=== PATIENT | male | born 1960 | race Caucasian/White ===

== ENCOUNTER 2022-08-16 14:20 | Emergency (ER) | payer MEDICAID ==
[~2022-08-16] VITALS: Ht 182.9 cm; Wt 80.0 kg
[~2022-08-16 14:20] MED LIST: NORCO10T PO
[2022-08-16 14:21] VITALS: BP 153/93
[2022-08-16] MEDS ORDERED: sulfamethoxazole/trimethoprim DS (800/160mg) tablet PO ONE (14:50)
[2022-08-16] MEDS ORDERED: bacitracin 15gm ointment TP ONE (14:50)
--- NOTE | 2022-08-16 14:59 | NUR ---
I AGREE WITH THE GENERAL ASSESSMENT PER Miriam ROBLES LVN.
[2022-08-16] MEDS ORDERED: HYDROcodone/acetaminophen 10/325mg tab PO ONE (15:05)
[2022-08-16] MEDS ORDERED: IBUP-862 PO (15:14)
[2022-08-16] MEDS ORDERED: HYDR-3973 PO (15:14)
--- NOTE | 2022-08-16 15:15 | NUR ---
xray at bs
[2022-08-16] MEDS ORDERED: SULF1TAB49 PO (15:16)
== END 2022-08-16 16:12 | disposition home or self-care (01) ==
LOC: ER 14:20
DX: M25.571 Pain in right ankle and joints of right foot (principal); Z56.0 Unemployment, unspecified; Z79.899 Other long term (current) drug therapy; W14.XXXA Fall from tree, initial encounter; Y93.89 Activity, other specified; Y92.89 Other specified places as the place of occurrence of the external cause; Y99.8 Other external cause status
CPT/HCPCS: 29515; 73610; 73650; 99284; A6258; A6446; A6449

== ENCOUNTER 2023-03-20 18:44 | Inpatient (IN) | payer MEDICAID ==
[~2023-03-20] VITALS: Ht 182.9 cm; Wt 84.8 kg
[~2023-03-20 18:44] MED LIST changes: +IBUP-862 PO
--- NOTE | 2023-03-20 18:58 | NUR ---
EKG performed on patient in room 19. EKG given to MD Mckeon. Per MD pt needs to be roomed right away. Informed charge Jessica. Per ore charger no room is available. notified.
[2023-03-20 20:13] LABS: HEMATOCRIT 45.8 % (42.0-52.0); HEMOGLOBIN 15.1 g/dl (14.0-17.9); MEAN CORPUSCULAR HEMOGLOBIN 30.4 PG (27.0-31.0); MEAN CORPUSCULAR VOLUME 92.4 FL (78-98); RED BLOOD COUNT 4.96 X10'6 (4.70-6.10); WHITE BLOOD COUNT 8.8 X10'3 (4.5-11.0)
[2023-03-20 20:14] LABS: BASOPHILS # (AUTO) 0.1 X10'3 (0-0.2); EOSINOPHILS % (AUTO) 0.3 % (0-6); LYMPHOCYTES # (AUTO) 1.1 X10'3 (1.1-4.8); MEAN PLATELET VOLUME 8.5 FL (7.4-10.4); MONOCYTES # (AUTO) 0.6 X10'3 (0-0.9); MONOCYTES % (AUTO) 6.8 % (2-12); NEUTROPHILS % (AUTO) 79.9 % (42-75); PLATELET COUNT 301 X10'3 (140-440); RED CELL DISTRIBUTION WIDTH 15.7 % (11.5-14.5)
[2023-03-20 20:28] LABS: ALANINE AMINOTRANSFERASE 354 U/L (12-78); ALBUMIN 3.2 G/DL (3.4-5.0); ALBUMIN/GLOBULIN RATIO 1.1 (1.1-1.5); ALKALINE PHOSPHATASE 187 IU/L (46-116); ANION GAP 10 (8-16); ASPARTATE AMINO TRANSFERASE 296 U/L (10-37); BLOOD UREA NITROGEN 31 MG/DL (7-18); BUN/CREATININE RATIO 15.3 (10.0-20.0); CALCIUM 8.9 MG/DL (8.5-10.1); CHLORIDE 105 MMOL/L (99-107); CREATININE 2.03 MG/DL (0.60-1.10); GLUCOSE 126 MG/DL (70-104); POTASSIUM 4.4 MMOL/L (3.5-5.1); SODIUM 139 MMOL/L (135-145); TOTAL CARBON DIOXIDE 23.8 MMOL/L (24-32); TOTAL PROTEIN 6.1 G/DL (6.4-8.2); eCRCL 41 ML/MIN; eGFR 33 ML/MIN
[2023-03-20 20:34] LABS: PRO BRAIN NATRIURETIC PEPTIDE 13474 PG/ML (0-125)
[2023-03-20] MEDS ORDERED: furosemide 10 MG/1 ML 10ml inj IV ONE (20:50)
[2023-03-20] MEDS ORDERED: albuterol 2.5 MG/3 ML nebule NEB ONE (20:55)
[2023-03-20 21:46] VITALS: PULSE 115; RESP 22; O2SAT 95
[2023-03-20 21:51] VITALS: PULSE 114; RESP 22; O2SAT 100
[2023-03-20] MEDS ORDERED: NO HOME MEDS (23:27)
[2023-03-21] VITALS (7 sets, daily range): BP systolic 104–131; BP diastolic 71–89; PULSE 90–114; RESP 15–22; TEMP 97.4–98.4; O2SAT 92–98
[2023-03-21] MEDS ORDERED: ondansetron 4mg rapidly disintigrating tab PO PRN (00:15)
[2023-03-21] MEDS ORDERED: acetaminophen 325mg tablet PO PRN ×2 (00:15)
[2023-03-21] MEDS ORDERED: HYDROcodone/acetaminophen 5mg/325mg tablet PO PRN ×2 (00:15→12:40)
[2023-03-21] MEDS ORDERED: mag hydrox/Alum hydrox/simeth 30ml oral suspension PO PRN (00:15)
[2023-03-21] MEDS ORDERED: diphenhydrAMINE 25mg capsule PO PRN (00:15)
[2023-03-21] MEDS ORDERED: morphine 2 MG/ML inj. syringe IV PRN ×4 (00:15→12:40)
[2023-03-21] MEDS ORDERED: ondansetron/PF 4mg/2ml inj IV PRN (00:15)
[2023-03-21] MEDS ORDERED: magnesium hydroxide 30ml (MOM) UD suspension PO PRN (00:15)
[2023-03-21] MEDS ORDERED: bisacodyl 10mg suppository rectal RC PRN (00:15)
[2023-03-21] MEDS ORDERED: normal saline 1000ml 1,000 ML IV SCH (00:15)
[2023-03-21] MEDS ORDERED: diphenhydrAMINE 50 mg/ml inj IV PRN (00:15)
[2023-03-21] MEDS ORDERED: acetaminophen 650mg rectal suppository RC PRN (00:15)
[2023-03-21] MEDS ORDERED: HYDROcodone/acetaminophen 10/325mg tab PO PRN ×2 (00:15→12:40)
[2023-03-21] MEDS ORDERED: ipratropium/albuterol 3ml nebule NEB PRN (00:15)
[2023-03-21] MEDS ORDERED: labetalol 20mg/4ml (5mg/ml) syringe IV PRN (00:40)
[2023-03-21 00:48] LABS: APTT 26 SECONDS (22-32); D-DIMER 1.06 MG/L FEU (0-0.50); INR 1.2 INR; PROTHROMBIN TIME 13.1 SECONDS (9.0-12.0)
[2023-03-21 00:59] LABS: CREATINE KINASE 475 U/L (39-308); ETHANOL < 10 MG/DL (<10); LIPASE 24 U/L (16-77); PHOSPHORUS 4.4 MG/DL (2.3-4.5); PRO BRAIN NATRIURETIC PEPTIDE 14717 PG/ML (0-125); THYROID STIMULATING HORMONE 2.58 ulU/ml (0.34-4.50)
[2023-03-21 01:14] LABS: HEMOGLOBIN A1C 5.8 % (4.5-6.2)
[2023-03-21 01:22] LABS: OSMOLALITY 303 MOSM/K (280-300)
[2023-03-21 01:41] LABS: URINE AMPHETAMINE SCREEN POSITIVE (Neg); URINE BARBITUATE SCREEN NEGATIVE (Neg); URINE BENZODIAZEPINES SCREEN NEGATIVE (Neg); URINE CANNABINOID SCREEN NEGATIVE (Neg); URINE COCAINE SCREEN NEGATIVE (Neg); URINE METHADONE SCREEN NEGATIVE (Neg); URINE OPIATE SCREEN NEGATIVE (Neg); URINE PHENCYCLIDINE SCREEN NEGATIVE (Neg)
--- NOTE | 2023-03-21 01:45 | NUR ---
LA 3.0, LEDY STEELE AWARE & VERBAL ORDER START ABX TX NOW RATHER THAN AT 8AM. ORDERS UPDATED. NO OTHER ORDERS AT THIS TIME.
--- NOTE | 2023-03-21 01:46 | NUR ---
LEDY STEELE AWARE THAT PT HAS NOT RECIEVED ANY ADDITIONAL FLUIDS OTHER THAN 20ML/HR NS. NO ADDITIONAL ORDERS AT THIS TIME.
[2023-03-21] MEDS: CefTRIAXone/D5W-Rocephin 1gm 50 ML IV SCH (01:52)
[2023-03-21] MEDS: azithromycin/NS 500mg/250ml 250 ML IV SCH (01:55)
[2023-03-21 02:19] LABS: BILIRUBIN,URINE NEGATIVE (Neg); CLARITY,URINE CLEAR (Clear); COLOR,URINE STRAW (Yellow); GLUCOSE, URINE NEGATIVE (Neg); KETONES,URINE NEGATIVE (Neg); LEUKOCYTE ESTERASE ,URINE NEGATIVE (Neg); NITRITES, URINE NEGATIVE (Neg); OCCULT BLOOD,URINE NEGATIVE (Neg); PH,URINE 5.5 (4.8-8.0); PROTEIN,URINE NEGATIVE (Neg); UROBILINOGEN,URINE 0.2 E.U/dL (0.2-1.0)
[2023-03-21 02:24] LABS: UA COLLECTION TYPE CLN CATCH MIDSTREAM
[2023-03-21] MEDS: temazepam 15mg capsule PO PRN ×2 (03:31→22:45)
--- NOTE | 2023-03-21 03:36 | NUR ---
LEDY STEELE UPDATED ON 2HR LA @4.1. NO ADDITIONAL ORDERS, SAYS TO FOLLOW CURRENT ORDERS.
[2023-03-21 03:41] LABS: ABG BASE EXCESS -3.7 mmol/L (-2.0-2.0); ABG OXYGEN SATURATION 87.5 % (94-97); ABG PCO2 (T) 32.1 mmHg (35.0-48.0); ABG PO2 (T) 52.2 mmHg (75.0-100.0); ALLEN'S TEST POSITIVE; FCOHb 0.7 % (0.0-3.9); FHHb 12.4 % (0.0-5.0); FMetHb 0.3 % (0.0-1.5); FO2Hb 86.6 % (94-97); PATIENT TEMPERATURE 36.6; TOTAL HEMOGLOBIN 15.7 G/dl (14.0-17.9)
--- NOTE | 2023-03-21 04:27 | NUR ---
LEDY STEELE AWARE OF ABG RESULTS, ORDERED TO INCREASE O2 FROM 4L NC TO 5L NC, KEEP SAT'S ABOVE 94%
[2023-03-21] MEDS: aspirin 81mg, enteric-coated 1 TAB TABLET.DR PO SCH (07:41)
[2023-03-21] MEDS: pantoprazole 40mg Tablet.DR PO SCH (07:41)
[2023-03-21] MEDS: heparin, porcine 5000 units/ml vial SQ SCH ×2 (07:43→19:49)
[2023-03-21] MEDS ORDERED: methylPREDNISolone sod succ/PF 40mg inj. IV SCH (08:00)
[2023-03-21] MEDS ORDERED: docusate sod 100mg capsule PO SCH (08:00)
[2023-03-21] MEDS ORDERED: CefTRIAXone/D5W-Rocephin 1gm 50 ML IV SCH (08:00)
[2023-03-21] MEDS ORDERED: azithromycin/NS 500mg/250ml 250 ML IV SCH (08:00)
--- NOTE | 2023-03-21 08:23 | NUR ---
Called Dr Xiang Dunn, radiologist, regaring clarification on CXR done last night regarding possible tracheal deviation. No obvious trachael deviation upon exam. No respiratory distress noted. Left detailed VM. Waiting callback. Pt O2 sat 96% on 3L NC. Pt sleeping comfortably at this time. Will continue to monitor.
--- NOTE | 2023-03-21 10:39 | NUR ---
Echo paged regarding new echo ordered at midnight today.
--- NOTE | 2023-03-21 10:55 | NUR ---
Spoke w/ Dr Dunn, radiologist regarding CXR read. states trachea is slightly deviated d/t enlarged aorta. Dr Dunn states that would to be expected for enlarged aorta.
[2023-03-21] MEDS: furosemide 20 MG/2 ML vial IV SCH ×2 (13:45→19:49)
--- NOTE | 2023-03-21 14:02 | NUR ---
Received report from ROSY Vital RN
--- NOTE | 2023-03-21 14:13 | NUR ---
Spouse, Tien, called to update her regarding room assignment. Left detailed VM.
[2023-03-21 14:47] LABS: ALANINE AMINOTRANSFERASE 342 U/L (12-78); ALBUMIN 2.8 G/DL (3.4-5.0); ALKALINE PHOSPHATASE 194 IU/L (46-116); ANION GAP 12 (8-16); ASPARTATE AMINO TRANSFERASE 209 U/L (10-37); BILIRUBIN,TOTAL 1.1 MG/DL (0.1-1.0); BLOOD UREA NITROGEN 36 MG/DL (7-18); BUN/CREATININE RATIO 17.6 (10.0-20.0); CALCIUM 8.4 MG/DL (8.5-10.1); CHLORIDE 105 MMOL/L (99-107); CREATININE 2.04 MG/DL (0.60-1.10); GLUCOSE 174 MG/DL (70-104); POTASSIUM 3.9 MMOL/L (3.5-5.1); SODIUM 138 MMOL/L (135-145); TOTAL CARBON DIOXIDE 20.9 MMOL/L (24-32); TOTAL PROTEIN 5.7 G/DL (6.4-8.2); eCRCL 41 ML/MIN; eGFR 33 ML/MIN
--- NOTE | 2023-03-21 18:19 | NUR ---
Report given to OLIVIA Rao RN.
[2023-03-21] MEDS: carVEDilol 3.125mg tablet PO SCH (19:49)
[2023-03-21] MEDS: methylPREDNISolone sod succ/PF 40mg inj. IV SCH (19:49)
[2023-03-21] MEDS ORDERED: temazepam 15mg capsule PO PRN (21:00)
[2023-03-22] VITALS (11 sets, daily range): BP systolic 86–138; BP diastolic 57–92; PULSE 88–101; RESP 15–25; TEMP 97–98.3; O2SAT 90–98
[2023-03-22] MEDS: CefTRIAXone/D5W-Rocephin 1gm 50 ML IV SCH ×2 (01:33→08:57)
[2023-03-22] MEDS: azithromycin/NS 500mg/250ml 250 ML IV SCH ×2 (01:33→09:32)
[2023-03-22 07:15] LABS: BASOPHILS % (AUTO) 0.1 % (0-1); EOSINOPHILS % (AUTO) 0 % (0-6); HEMATOCRIT 45.3 % (42.0-52.0); HEMOGLOBIN 15.1 g/dl (14.0-17.9); LYMPHOCYTES # (AUTO) 0.4 X10'3 (1.1-4.8); MEAN CORPUSCULAR HEMOGLOBIN 30.3 PG (27.0-31.0); MEAN CORPUSCULAR HGB CONC 33.3 g/dL (33.0-36.5); MEAN CORPUSCULAR VOLUME 91.1 FL (78-98); MEAN PLATELET VOLUME 8.4 FL (7.4-10.4); MONOCYTES # (AUTO) 0.2 X10'3 (0-0.9); MONOCYTES % (AUTO) 1.8 % (2-12); NEUTROPHILS % (AUTO) 94.1 % (42-75); PLATELET COUNT 281 X10'3 (140-440); RED BLOOD COUNT 4.97 X10'6 (4.70-6.10); RED CELL DISTRIBUTION WIDTH 15.7 % (11.5-14.5); WHITE BLOOD COUNT 10.6 X10'3 (4.5-11.0)
[2023-03-22 07:22] LABS: ALANINE AMINOTRANSFERASE 250 U/L (12-78); ALBUMIN 2.4 G/DL (3.4-5.0); ALKALINE PHOSPHATASE 150 IU/L (46-116); ANION GAP 11 (8-16); ASPARTATE AMINO TRANSFERASE 111 U/L (10-37); BILIRUBIN,TOTAL 0.8 MG/DL (0.1-1.0); BLOOD UREA NITROGEN 34 MG/DL (7-18); CALCIUM 7.9 MG/DL (8.5-10.1); CHLORIDE 104 MMOL/L (99-107); CHOL/HDL RATIO 3.6 (0.00-4.99); CHOLESTEROL 143 MG/DL (0-200); GLUCOSE 159 MG/DL (70-104); HDL CHOLESTEROL 40 MG/DL (35-60); LDL CHOLESTEROL 88 MG/DL (50-100); POTASSIUM 3.6 MMOL/L (3.5-5.1); SODIUM 137 MMOL/L (135-145); TOTAL CARBON DIOXIDE 22.4 MMOL/L (24-32); TOTAL PROTEIN 4.9 G/DL (6.4-8.2); TRIGLYCERIDES 56 MG/DL (20-135); eCRCL 42 ML/MIN; eGFR 34 ML/MIN
[2023-03-22] MEDS ORDERED: lisinopril 5mg tablet PO SCH (08:00)
[2023-03-22] MEDS: pantoprazole 40mg Tablet.DR PO SCH (08:34)
[2023-03-22] MEDS: aspirin 81mg, enteric-coated 1 TAB TABLET.DR PO SCH (08:35)
[2023-03-22] MEDS: carVEDilol 3.125mg tablet PO SCH ×2 (08:35→20:19)
[2023-03-22] MEDS: methylPREDNISolone sod succ/PF 40mg inj. IV SCH (08:37)
[2023-03-22] MEDS: furosemide 20 MG/2 ML vial IV SCH ×2 (08:38→20:19)
[2023-03-22] MEDS: heparin, porcine 5000 units/ml vial SQ SCH ×2 (08:42→20:20)
[2023-03-22] MEDS: EMPAGLIFLOZIN 10 MG TABLET PO SCH (11:27)
[2023-03-22] MEDS: spironolactone 25 MG tablet PO SCH (12:20)
--- NOTE | 2023-03-22 14:59 | NUR ---
Message: [id number] Chu Beck has family at the bedside that would like to talk to you. Rebecca [id number] Transaction number: [id number]
[2023-03-22] MEDS ORDERED: LORazepam 1 MG tablet PO PRN (15:15)
[2023-03-22] MEDS ORDERED: LORazepam 2 mg/ml vial IV PRN ×2 (15:15)
[2023-03-22] MEDS ORDERED: haloperidol 5mg tablet PO PRN ×2 (15:15)
[2023-03-22] MEDS ORDERED: haloperidol lactate 5mg/ml inj IM PRN ×2 (15:15)
--- NOTE | 2023-03-22 15:36 | NUR ---
Patient very anxious with restless legs and feet. Patient drinks up to 12 Coors a day, not coors light. Patient feels like he wants to come out of the bed. Dr. Dunn called and notified. ETOH withdrawal protocol ordered. Patient drank on his day of arrival to ER. Today will be day 2, 2mg Ativan IV given. Patient is relaxed and sleeping currently. O2 increased to 3L do to patient O2 level dropped to 90%, patient snoring, HOB 30 degrees. Plan of care will be continued.
--- NOTE | 2023-03-22 18:18 | NUR ---
Report given to Denisse Ureña
--- NOTE | 2023-03-22 18:20 | NUR ---
Patient in room PCU 3023. I have received report from KARUNA Fernandez and had the opportunity to ask questions and assume patient care.
[2023-03-22] MEDS: thiamine 100mg/ml 2ml inj. IV SCH (20:19)
[2023-03-23] VITALS (9 sets, daily range): BP systolic 121–146; BP diastolic 85–102; PULSE 94–102; RESP 16–21; TEMP 97.2–98.6; O2SAT 94–99
--- NOTE | 2023-03-23 06:42 | NUR ---
Problems reprioritized. Patient report given, questions answered & plan of care reviewed with KARUNA Moran.
--- NOTE | 2023-03-23 06:44 | NUR ---
Patient in room PCU 3023. I have received report from Denisse BECKMAN and had the opportunity to ask questions and assume patient care.
[2023-03-23] MEDS: pantoprazole 40mg Tablet.DR PO SCH (08:09)
[2023-03-23] MEDS: EMPAGLIFLOZIN 10 MG TABLET PO SCH (08:10)
[2023-03-23] MEDS: aspirin 81mg, enteric-coated 1 TAB TABLET.DR PO SCH (08:10)
[2023-03-23] MEDS: multivitamins, therapeutics tablet PO SCH (08:10)
[2023-03-23] MEDS: furosemide 20 MG/2 ML vial IV SCH ×2 (08:11→21:42)
[2023-03-23] MEDS: heparin, porcine 5000 units/ml vial SQ SCH ×2 (08:11→21:22)
[2023-03-23] MEDS: thiamine 100mg/ml 2ml inj. IV SCH ×3 (08:11→21:42)
[2023-03-23] MEDS: folic acid 1mg/0.2ml inj IV SCH (08:21)
[2023-03-23] MEDS: carVEDilol 3.125mg tablet PO SCH ×2 (08:21→21:22)
[2023-03-23] MEDS: spironolactone 25 MG tablet PO SCH (08:22)
[2023-03-23 08:49] LABS: BASOPHILS % (AUTO) 0.1 % (0-1); EOSINOPHILS % (AUTO) 0 % (0-6); HEMATOCRIT 44.4 % (42.0-52.0); HEMOGLOBIN 14.3 g/dl (14.0-17.9); LYMPHOCYTES # (AUTO) 0.7 X10'3 (1.1-4.8); LYMPHOCYTES % (AUTO) 4.4 % (21-51); MEAN CORPUSCULAR HEMOGLOBIN 29.7 PG (27.0-31.0); MEAN CORPUSCULAR HGB CONC 32.3 g/dL (33.0-36.5); MEAN CORPUSCULAR VOLUME 92.2 FL (78-98); MEAN PLATELET VOLUME 8.7 FL (7.4-10.4); MONOCYTES # (AUTO) 0.7 X10'3 (0-0.9); NEUTROPHILS # (AUTO) 15.4 X10'3 (1.8-7.7); NEUTROPHILS % (AUTO) 91.5 % (42-75); PLATELET COUNT 308 X10'3 (140-440); RED BLOOD COUNT 4.82 X10'6 (4.70-6.10); RED CELL DISTRIBUTION WIDTH 16.5 % (11.5-14.5); WHITE BLOOD COUNT 16.8 X10'3 (4.5-11.0)
[2023-03-23 09:30] LABS: ALANINE AMINOTRANSFERASE 239 U/L (12-78); ALBUMIN 2.8 G/DL (3.4-5.0); ALBUMIN/GLOBULIN RATIO 1.1 (1.1-1.5); ALKALINE PHOSPHATASE 143 IU/L (46-116); ANION GAP 12 (8-16); ASPARTATE AMINO TRANSFERASE 88 U/L (10-37); BILIRUBIN,TOTAL 0.6 MG/DL (0.1-1.0); BLOOD UREA NITROGEN 41 MG/DL (7-18); BUN/CREATININE RATIO 17.7 (10.0-20.0); CALCIUM 8.3 MG/DL (8.5-10.1); CHLORIDE 104 MMOL/L (99-107); CREATININE 2.32 MG/DL (0.60-1.10); GLUCOSE 115 MG/DL (70-104); POTASSIUM 4.2 MMOL/L (3.5-5.1); SODIUM 138 MMOL/L (135-145); TOTAL CARBON DIOXIDE 22.1 MMOL/L (24-32); TOTAL PROTEIN 5.4 G/DL (6.4-8.2); eCRCL 36 ML/MIN; eGFR 29 ML/MIN
--- NOTE | 2023-03-23 17:19 | NUR ---
O2 Sat at rest on room air:__88_% If below 89%: Recovery O2 Sat at rest on 2__LPM:___%:_92__% via____nc (mask/nasal cannula, etc..) No further documentation is necessary. If O2 Sat did not drop below 89% on room air,ambulate patient on room air. O2 Sat while ambulating on room air:___% Recovery O2 Sat while ambulating on ___LPM:___% No further documentation is necessary. If patient does not drop below 89% while ambulating, he/she does not qualify for home O2.
--- NOTE | 2023-03-23 17:32 | NUR ---
patient seen by Dr wyatt, , qualified for O2. . No evidence of withdrawals. sleeping alot of day. family present
--- NOTE | 2023-03-23 18:17 | NUR ---
Problems reprioritized. Patient report given, questions answered & plan of care reviewed with Christina ISBELL.
[2023-03-23 19:07] LABS: HBSAG SCREEN Negative (Negative); HEP A AB, IGM Negative (Negative); HEP B CORE AB, IGM Negative (Negative); HEP B CORE AB, TOT Negative (Negative); HEPATITIS C VIRUS ANTIBODY Non Reactive (Non Reactive)
[2023-03-23] MEDS: temazepam 15mg capsule PO PRN (21:21)
[2023-03-23] MEDS: sacubitril/valsartan 24mg-26mg tablet PO SCH (21:22)
[2023-03-24 02:00] VITALS: BP 138/99; PULSE 98; RESP 28; TEMP 97; O2SAT 98
--- NOTE | 2023-03-24 04:01 | NUR ---
I AGREE WITH AUDIO DIRECTOR'S ASSESSMENT
[2023-03-24 06:00] VITALS: BP 138/94; PULSE 98; RESP 19; TEMP 98.2; O2SAT 91
--- NOTE | 2023-03-24 06:57 | NUR ---
Patient in room PCU 3023. I have received report from Christina ISBELL and had the opportunity to ask questions and assume patient care.
[2023-03-24] MEDS: sacubitril/valsartan 24mg-26mg tablet PO SCH (07:30)
[2023-03-24] MEDS: multivitamins, therapeutics tablet PO SCH (07:30)
[2023-03-24] MEDS: furosemide 20 MG/2 ML vial IV SCH (07:30)
[2023-03-24] MEDS: pantoprazole 40mg Tablet.DR PO SCH (07:30)
[2023-03-24] MEDS: spironolactone 25 MG tablet PO SCH (07:31)
[2023-03-24] MEDS: thiamine 100mg/ml 2ml inj. IV SCH ×2 (07:31→13:53)
[2023-03-24] MEDS: carVEDilol 3.125mg tablet PO SCH (07:31)
[2023-03-24] MEDS: EMPAGLIFLOZIN 10 MG TABLET PO SCH (07:31)
[2023-03-24] MEDS: aspirin 81mg, enteric-coated 1 TAB TABLET.DR PO SCH (07:31)
[2023-03-24] MEDS: heparin, porcine 5000 units/ml vial SQ SCH (07:32)
[2023-03-24] MEDS: folic acid 1mg/0.2ml inj IV SCH (07:44)
[2023-03-24 08:01] LABS: BASOPHILS % (AUTO) 0.4 % (0-1); EOSINOPHILS % (AUTO) 0.5 % (0-6); HEMATOCRIT 44.4 % (42.0-52.0); HEMOGLOBIN 14.4 g/dl (14.0-17.9); LYMPHOCYTES # (AUTO) 0.9 X10'3 (1.1-4.8); LYMPHOCYTES % (AUTO) 10.6 % (21-51); MEAN CORPUSCULAR HEMOGLOBIN 29.9 PG (27.0-31.0); MEAN CORPUSCULAR HGB CONC 32.3 g/dL (33.0-36.5); MEAN CORPUSCULAR VOLUME 92.5 FL (78-98); MEAN PLATELET VOLUME 8.2 FL (7.4-10.4); MONOCYTES # (AUTO) 0.5 X10'3 (0-0.9); MONOCYTES % (AUTO) 5.7 % (2-12); NEUTROPHILS # (AUTO) 6.9 X10'3 (1.8-7.7); NEUTROPHILS % (AUTO) 82.8 % (42-75); PLATELET COUNT 262 X10'3 (140-440); RED CELL DISTRIBUTION WIDTH 16.1 % (11.5-14.5); WHITE BLOOD COUNT 8.4 X10'3 (4.5-11.0)
[2023-03-24 08:25] LABS: ALANINE AMINOTRANSFERASE 190 U/L (12-78); ALBUMIN 2.6 G/DL (3.4-5.0); ALKALINE PHOSPHATASE 133 IU/L (46-116); ANION GAP 3 (8-16); ASPARTATE AMINO TRANSFERASE 71 U/L (10-37); BILIRUBIN,TOTAL 0.9 MG/DL (0.1-1.0); BLOOD UREA NITROGEN 38 MG/DL (7-18); BUN/CREATININE RATIO 19.8 (10.0-20.0); CALCIUM 8.3 MG/DL (8.5-10.1); CHLORIDE 102 MMOL/L (99-107); CREATININE 1.92 MG/DL (0.60-1.10); GLUCOSE 92 MG/DL (70-104); SODIUM 136 MMOL/L (135-145); TOTAL CARBON DIOXIDE 30.7 MMOL/L (24-32); TOTAL PROTEIN 5.2 G/DL (6.4-8.2); eCRCL 44 ML/MIN; eGFR 36 ML/MIN
[2023-03-24 08:28] LABS: POTASSIUM 4.5 MMOL/L (3.5-5.1)
--- NOTE | 2023-03-24 11:44 | NUR ---
Initial: Pt admit for CHF with EF 10%, pulmonary edema, possible PNA, NSTEMI, transaminitis, and KIKI. Per EMR pt with EtOH hx, currently receiving routine Thiamine, Folic acid, and MVI. Pt on a heart healthy diet and eating well, documented with 100% PO intake of all meals. D/w dietary to send double protein with meals for satiety. LBM 03/23 per EMR. Will continue to follow and monitor need for further nutrition intervention. Recommendations: 1) Continue heart healthy diet 2) Double eggs WB, double meat BIDLD for satiety 3) Routine bowel care 4) Daily scaled weights per rx Addendum: 03/24/23 at [address] Amended: Links added.
[2023-03-24 12:24] VITALS: PULSE 83; RESP 20; O2SAT 94
[2023-03-24 12:52] VITALS: BP 119/83; PULSE 88; RESP 20; TEMP 97.3; O2SAT 99
[2023-03-24] MEDS ORDERED: SPIR25TA PO (14:14)
[2023-03-24] MEDS ORDERED: FOLI IV (14:14)
[2023-03-24] MEDS ORDERED: THIA100T70 PO (14:14)
[2023-03-24] MEDS ORDERED: COR3.125T PO (14:14)
[2023-03-24] MEDS ORDERED: MULT-25 PO (14:14)
[2023-03-24] MEDS ORDERED: ASPI-1071 PO (14:14)
[2023-03-24] MEDS ORDERED: EMPA10TA PO (14:14)
[2023-03-24] MEDS ORDERED: FURO-150 PO (14:14)
[2023-03-24] MEDS ORDERED: LORazepam 2 mg/ml vial IV PRN (15:15)
[2023-03-24] MEDS ORDERED: LORazepam 1 MG tablet PO PRN (15:15)
[2023-03-24] MEDS ORDERED: SACU1TAB PO ×2 (15:27)
[2023-03-24] MEDS ORDERED: LOSA50TA64 PO (17:45)
--- NOTE | 2023-03-24 18:22 | NUR ---
patient seen by Dr Dunn and DR Carrasco. Life vest fitted and O2 delivered. patient appears stable. DC home via private car with spouse .[id number]
[2023-03-26] MEDS ORDERED: LORazepam 1 MG tablet PO PRN (15:15)
[2023-03-26] MEDS ORDERED: LORazepam 2 mg/ml vial IV PRN (15:15)
== END 2023-03-24 17:54 | disposition home or self-care (01) | DRG 133 ==
LOC: ER 18:45 → ED HOLD 03-21 00:18 → PCU 3S 03-21 14:08
PROVIDERS: ADMIT Family Medicine; ATTEND Internal Medicine
DX: J96.01 Acute respiratory failure with hypoxia (principal); I21.A1 Myocardial infarction type 2; I50.43 Acute on chronic combined systolic (congestive) and diastolic (congestive) heart failure; N17.9 Acute kidney failure, unspecified; I13.0 Hypertensive heart and chronic kidney disease with heart failure and stage 1 through stage 4 chronic kidney disease, or unspecified chronic kidney disease; K76.1 Chronic passive congestion of liver; J44.9 Chronic obstructive pulmonary disease, unspecified; F15.129 Other stimulant abuse with intoxication, unspecified; N18.9 Chronic kidney disease, unspecified; F10.239 Alcohol dependence with withdrawal, unspecified; K70.10 Alcoholic hepatitis without ascites; R74.01 Elevation of levels of liver transaminase levels; Z87.891 Personal history of nicotine dependence
CPT/HCPCS: 36415; 36600; 71045; 71250; 74176; 80053; 80061; 80305; 80320; 81003; 82140; 82550; 82803; 82948; 82977; 83036; 83605; 83690; 83735; 83880; 83930; 84100; 84145; 84443; 84484; 85018; 85025; 85379; 85610; 85730; 86704; 86705; 86709; 86803; 87040; 87081; 87340; 87522; 93306; 94640; 94760; 97161; 97530; 99285; A4349; A4615; J0456; J0696; J1644; J1940; J2060; J2920; J3411; J3490; J7030; J7040

== ENCOUNTER 2023-04-14 12:16 | Inpatient (IN) | payer MEDICAID ==
[~2023-04-14] VITALS: Ht 182.9 cm; Wt 65.7 kg
[~2023-04-14 12:16] MED LIST changes: +ASPI-1071 PO; +COR3.125T PO; +EMPA10TA PO; +FOLI IV; +FURO-150 PO; -IBUP-862 PO; +LOSA50TA64 PO; +MULT-25 PO; -NORCO10T PO; +SPIR25TA PO; +THIA100T70 PO
[2023-04-14 12:55] LABS: BASOPHILS # (AUTO) 0.1 X10'3 (0-0.2); BASOPHILS % (AUTO) 1.1 % (0-1); EOSINOPHILS % (AUTO) 0.3 % (0-6); HEMATOCRIT 45.6 % (42.0-52.0); HEMOGLOBIN 14.7 g/dl (14.0-17.9); LYMPHOCYTES # (AUTO) 1.5 X10'3 (1.1-4.8); LYMPHOCYTES % (AUTO) 14.3 % (21-51); MEAN CORPUSCULAR HGB CONC 32.2 g/dL (33.0-36.5); MEAN CORPUSCULAR VOLUME 93.2 FL (78-98); MEAN PLATELET VOLUME 8.6 FL (7.4-10.4); MONOCYTES # (AUTO) 0.9 X10'3 (0-0.9); MONOCYTES % (AUTO) 8.9 % (2-12); NEUTROPHILS # (AUTO) 7.9 X10'3 (1.8-7.7); NEUTROPHILS % (AUTO) 75.4 % (42-75); PLATELET COUNT 260 X10'3 (140-440); RED CELL DISTRIBUTION WIDTH 16.4 % (11.5-14.5); WHITE BLOOD COUNT 10.5 X10'3 (4.5-11.0)
[2023-04-14 13:06] LABS: ALANINE AMINOTRANSFERASE 117 U/L (12-78); ALBUMIN 3.3 G/DL (3.4-5.0); ALKALINE PHOSPHATASE 136 IU/L (46-116); ANION GAP 10 (8-16); ASPARTATE AMINO TRANSFERASE 101 U/L (10-37); BILIRUBIN,TOTAL 3.2 MG/DL (0.1-1.0); BLOOD UREA NITROGEN 30 MG/DL (7-18); CALCIUM 8.9 MG/DL (8.5-10.1); CHLORIDE 100 MMOL/L (99-107); CREATININE 1.87 MG/DL (0.60-1.10); GLUCOSE 110 MG/DL (70-104); POTASSIUM 4.8 MMOL/L (3.5-5.1); SODIUM 130 MMOL/L (135-145); TOTAL CARBON DIOXIDE 19.7 MMOL/L (24-32); TOTAL PROTEIN 6.7 G/DL (6.4-8.2); eCRCL 38 ML/MIN; eGFR 37 ML/MIN
[2023-04-14 13:14] LABS: PRO BRAIN NATRIURETIC PEPTIDE 15264 PG/ML (0-125)
[2023-04-14] MEDS ORDERED: furosemide 10 MG/1 ML 10ml inj IV ONE (15:30)
[2023-04-14] MEDS ORDERED: acetaminophen 325mg tablet PO PRN ×2 (16:15)
[2023-04-14] MEDS ORDERED: potassium Cl 40MEQ/1/2NS 520ml 520 ML IV PRN (16:15)
[2023-04-14] MEDS ORDERED: potassium Cl 20 mEq SR tablet PO PRN ×2 (16:15)
[2023-04-14] MEDS ORDERED: ondansetron/PF 4mg/2ml inj IV PRN (16:15)
[2023-04-14] MEDS ORDERED: LORazepam 1 MG tablet PO PRN (16:15)
[2023-04-14] MEDS ORDERED: LORazepam 2 mg/ml vial IV PRN (16:15)
[2023-04-14] MEDS ORDERED: magnesium 2GM in 50ml NS 50 ML IV PRN (16:15)
[2023-04-14] MEDS ORDERED: magnesium Cl slow-release 64mg tablet PO PRN (16:15)
[2023-04-14] MEDS ORDERED: magnesium 4gm in 100ml NS 100 ML IV PRN (16:15)
[2023-04-14 19:14] VITALS: BP 132/100; PULSE 111; RESP 20; TEMP 97.9; O2SAT 100
[2023-04-14 20:00] VITALS: RESP 24; O2SAT 100
[2023-04-14] MEDS: carVEDilol 3.125mg tablet PO SCH (21:23)
[2023-04-14] MEDS: furosemide 40mg/4ml inj IV SCH (21:23)
[2023-04-14] MEDS: temazepam 15mg capsule PO PRN (21:23)
[2023-04-14] MEDS: enoxaparin 40mg/0.4ml syringe SQ SCH (21:24)
[2023-04-14 22:00] VITALS: BP 155/113; PULSE 114; RESP 20; TEMP 97.9; O2SAT 94
[2023-04-14] MEDS ORDERED: SPIR25TA5 PO (23:45)
[2023-04-14] MEDS ORDERED: ASPI-1397 PO (23:45)
[2023-04-14] MEDS ORDERED: EMPA10TA PO (23:45)
[2023-04-14] MEDS ORDERED: CARV3.1244 PO (23:45)
[2023-04-14] MEDS ORDERED: THIA100T66 PO (23:45)
[2023-04-14] MEDS ORDERED: LOSA-415 PO (23:45)
[2023-04-14] MEDS ORDERED: MULT400T7 PO (23:45)
[2023-04-14] MEDS ORDERED: FURO20TA4 PO (23:45)
[2023-04-15] VITALS (8 sets, daily range): BP systolic 95–123; BP diastolic 61–98; PULSE 87–111; RESP 15–23; TEMP 97.4–98.1; O2SAT 95–100
[2023-04-15 06:21] LABS: ALANINE AMINOTRANSFERASE 165 U/L (12-78); ALKALINE PHOSPHATASE 136 IU/L (46-116); ANION GAP 11 (8-16); ASPARTATE AMINO TRANSFERASE 128 U/L (10-37); BILIRUBIN,TOTAL 2.1 MG/DL (0.1-1.0); BLOOD UREA NITROGEN 37 MG/DL (7-18); BUN/CREATININE RATIO 19.7 (10.0-20.0); CALCIUM 8.5 MG/DL (8.5-10.1); CHLORIDE 99 MMOL/L (99-107); CREATININE 1.88 MG/DL (0.60-1.10); GLUCOSE 100 MG/DL (70-104); LIPASE 20 U/L (16-77); MAGNESIUM 1.8 MG/DL (1.5-2.4); PHOSPHORUS 4.2 MG/DL (2.3-4.5); POTASSIUM 3.8 MMOL/L (3.5-5.1); SODIUM 131 MMOL/L (135-145); TOTAL CARBON DIOXIDE 21.5 MMOL/L (24-32); eCRCL 38 ML/MIN; eGFR 37 ML/MIN
[2023-04-15 06:25] LABS: BASOPHILS # (AUTO) 0.1 X10'3 (0-0.2); BASOPHILS % (AUTO) 1.2 % (0-1); EOSINOPHILS % (AUTO) 0.4 % (0-6); HEMATOCRIT 44.3 % (42.0-52.0); HEMOGLOBIN 14.6 g/dl (14.0-17.9); LYMPHOCYTES # (AUTO) 1.4 X10'3 (1.1-4.8); LYMPHOCYTES % (AUTO) 14.7 % (21-51); MEAN CORPUSCULAR HGB CONC 32.8 g/dL (33.0-36.5); MEAN CORPUSCULAR VOLUME 91.5 FL (78-98); MEAN PLATELET VOLUME 8.8 FL (7.4-10.4); MONOCYTES # (AUTO) 0.9 X10'3 (0-0.9); MONOCYTES % (AUTO) 9.3 % (2-12); NEUTROPHILS # (AUTO) 7.2 X10'3 (1.8-7.7); NEUTROPHILS % (AUTO) 74.4 % (42-75); PLATELET COUNT 266 X10'3 (140-440); RED BLOOD COUNT 4.84 X10'6 (4.70-6.10); RED CELL DISTRIBUTION WIDTH 15.8 % (11.5-14.5); WHITE BLOOD COUNT 9.7 X10'3 (4.5-11.0)
[2023-04-15] MEDS: spironolactone 25 MG tablet PO SCH (07:52)
[2023-04-15] MEDS: carVEDilol 3.125mg tablet PO SCH ×2 (07:52→20:11)
[2023-04-15] MEDS: aspirin 81mg, enteric-coated 1 TAB TABLET.DR PO SCH (07:52)
[2023-04-15] MEDS: EMPAGLIFLOZIN 10 MG TABLET PO SCH (07:52)
[2023-04-15] MEDS: losartan 25mg tablet PO SCH (07:53)
[2023-04-15] MEDS: furosemide 40mg/4ml inj IV SCH ×2 (07:53→20:11)
[2023-04-15] MEDS: temazepam 15mg capsule PO PRN (20:11)
[2023-04-15] MEDS: enoxaparin 40mg/0.4ml syringe SQ SCH (20:11)
[2023-04-16 02:33] VITALS: BP 98/60; PULSE 92; RESP 18; TEMP 98; O2SAT 96
[2023-04-16 06:00] VITALS: BP 110/75; PULSE 91; RESP 20; TEMP 97.6; O2SAT 95
[2023-04-16 07:03] LABS: BASOPHILS # (AUTO) 0.1 X10'3 (0-0.2); BASOPHILS % (AUTO) 1.3 % (0-1); EOSINOPHILS # (AUTO) 0.1 X10'3 (0-0.9); EOSINOPHILS % (AUTO) 1.7 % (0-6); HEMATOCRIT 43.7 % (42.0-52.0); HEMOGLOBIN 14.5 g/dl (14.0-17.9); LYMPHOCYTES # (AUTO) 1.5 X10'3 (1.1-4.8); LYMPHOCYTES % (AUTO) 17.1 % (21-51); MEAN CORPUSCULAR HEMOGLOBIN 30.2 PG (27.0-31.0); MEAN CORPUSCULAR HGB CONC 33.1 g/dL (33.0-36.5); MEAN CORPUSCULAR VOLUME 91.3 FL (78-98); MEAN PLATELET VOLUME 9.1 FL (7.4-10.4); MONOCYTES % (AUTO) 11.8 % (2-12); NEUTROPHILS # (AUTO) 5.8 X10'3 (1.8-7.7); NEUTROPHILS % (AUTO) 68.1 % (42-75); PLATELET COUNT 290 X10'3 (140-440); RED BLOOD COUNT 4.79 X10'6 (4.70-6.10); RED CELL DISTRIBUTION WIDTH 15.9 % (11.5-14.5); WHITE BLOOD COUNT 8.5 X10'3 (4.5-11.0)
[2023-04-16 07:12] LABS: ALANINE AMINOTRANSFERASE 122 U/L (12-78); ALBUMIN 2.6 G/DL (3.4-5.0); ALBUMIN/GLOBULIN RATIO 0.8 (1.1-1.5); ALKALINE PHOSPHATASE 145 IU/L (46-116); ANION GAP 8 (8-16); ASPARTATE AMINO TRANSFERASE 75 U/L (10-37); BILIRUBIN,TOTAL 0.9 MG/DL (0.1-1.0); BLOOD UREA NITROGEN 43 MG/DL (7-18); BUN/CREATININE RATIO 22.3 (10.0-20.0); CALCIUM 8.1 MG/DL (8.5-10.1); CHLORIDE 101 MMOL/L (99-107); CREATININE 1.93 MG/DL (0.60-1.10); GLUCOSE 100 MG/DL (70-104); POTASSIUM 3.5 MMOL/L (3.5-5.1); SODIUM 137 MMOL/L (135-145); TOTAL CARBON DIOXIDE 28.1 MMOL/L (24-32); TOTAL PROTEIN 5.8 G/DL (6.4-8.2); eCRCL 37 ML/MIN; eGFR 35 ML/MIN
[2023-04-16 08:00] VITALS: RESP 20; O2SAT 95
[2023-04-16] MEDS: furosemide 40mg/4ml inj IV SCH (08:13)
[2023-04-16] MEDS: carVEDilol 3.125mg tablet PO SCH (08:56)
[2023-04-16] MEDS: EMPAGLIFLOZIN 10 MG TABLET PO SCH (08:57)
[2023-04-16] MEDS: spironolactone 25 MG tablet PO SCH (08:57)
[2023-04-16] MEDS: aspirin 81mg, enteric-coated 1 TAB TABLET.DR PO SCH (08:57)
[2023-04-16] MEDS: losartan 25mg tablet PO SCH (08:57)
[2023-04-16] MEDS ORDERED: FOLI1TAB27 PO (10:55)
[2023-04-16 11:00] VITALS: BP 96/61; PULSE 91; RESP 17; TEMP 97.5; O2SAT 94
[2023-04-16 15:00] VITALS: BP 99/64; PULSE 90; RESP 17; TEMP 97.4; O2SAT 93
[2023-04-19] MEDS ORDERED: thiamine 100mg tablet PO SCH (08:00)
[2023-04-19] MEDS ORDERED: folic acid 1mg tablet PO SCH (08:00)
== END 2023-04-16 16:10 | disposition home or self-care (01) | DRG 194 ==
LOC: ER 12:16 → ED HOLD 16:17 → PCU 3S 18:56
PROVIDERS: ADMIT Internal Medicine; ATTEND Internal Medicine
DX: I13.0 Hypertensive heart and chronic kidney disease with heart failure and stage 1 through stage 4 chronic kidney disease, or unspecified chronic kidney disease (principal); I21.A1 Myocardial infarction type 2; K70.10 Alcoholic hepatitis without ascites; E87.1 Hypo-osmolality and hyponatremia; F10.239 Alcohol dependence with withdrawal, unspecified; Y90.9 Presence of alcohol in blood, level not specified; F17.200 Nicotine dependence, unspecified, uncomplicated; I50.23 Acute on chronic systolic (congestive) heart failure; F41.9 Anxiety disorder, unspecified; N18.30 Chronic kidney disease, stage 3 unspecified; Z79.82 Long term (current) use of aspirin; Z79.899 Other long term (current) drug therapy; Z56.0 Unemployment, unspecified; I25.2 Old myocardial infarction; Z79.84 Long term (current) use of oral hypoglycemic drugs
CPT/HCPCS: 36415; 71045; 80053; 80320; 83690; 83735; 83880; 84100; 84484; 85025; 97116; 97161; 97530; 99285; A4615; G0378; J1650; J1940

== ENCOUNTER 2023-06-18 10:37 | Inpatient (IN) | payer MEDICAID ==
[~2023-06-18] VITALS: Ht 185.4 cm; Wt 82.8 kg
[~2023-06-18 10:37] MED LIST changes: -ASPI-1071 PO; +ASPI-1397 PO; +CARV3.1244 PO; -COR3.125T PO; -EMPA10TA PO; -FOLI IV; +FOLI1TAB27 PO; -FURO-150 PO; +FURO20TA4 PO; +LOSA-415 PO; -LOSA50TA64 PO; -MULT-25 PO; +MULT400T7 PO; -SPIR25TA PO; +SPIR25TA5 PO; +THIA100T66 PO; -THIA100T70 PO
[2023-06-18 11:10] LABS: BASOPHILS # (AUTO) 0.1 X10'3 (0-0.2); BASOPHILS % (AUTO) 1.3 % (0-1); EOSINOPHILS # (AUTO) 0.1 X10'3 (0-0.9); EOSINOPHILS % (AUTO) 1.4 % (0-6); HEMATOCRIT 45.5 % (42.0-52.0); HEMOGLOBIN 14.7 g/dl (14.0-17.9); MEAN CORPUSCULAR HEMOGLOBIN 30.2 PG (27.0-31.0); MEAN CORPUSCULAR HGB CONC 32.2 g/dL (33.0-36.5); MEAN CORPUSCULAR VOLUME 93.6 FL (78-98); MEAN PLATELET VOLUME 8.6 FL (7.4-10.4); MONOCYTES # (AUTO) 0.3 X10'3 (0-0.9); MONOCYTES % (AUTO) 4.2 % (2-12); NEUTROPHILS # (AUTO) 6.5 X10'3 (1.8-7.7); NEUTROPHILS % (AUTO) 81.1 % (42-75); PLATELET COUNT 221 X10'3 (140-440); RED BLOOD COUNT 4.86 X10'6 (4.70-6.10); RED CELL DISTRIBUTION WIDTH 18.5 % (11.5-14.5)
[2023-06-18 11:29] LABS: ALBUMIN 3.6 G/DL (3.4-5.0); ANION GAP 9 (8-16); BLOOD UREA NITROGEN 35 MG/DL (7-18); BUN/CREATININE RATIO 19.2 (10.0-20.0); CALCIUM 8.1 MG/DL (8.5-10.1); CHLORIDE 105 MMOL/L (99-107); CREATININE 1.82 MG/DL (0.60-1.10); GLUCOSE 127 MG/DL (70-104); POTASSIUM 4.5 MMOL/L (3.5-5.1); PRO BRAIN NATRIURETIC PEPTIDE 7877 PG/ML (0-125); SODIUM 141 MMOL/L (135-145); TOTAL CARBON DIOXIDE 27.1 MMOL/L (24-32); eCRCL 48 ML/MIN; eGFR 38 ML/MIN
[2023-06-18] MEDS: diltiazem 5mg/ml 5ml inj. IV ONE (12:31)
[2023-06-18] MEDS: carVEDilol 3.125mg tablet PO STA (13:04)
[2023-06-18] MEDS: nitroGLYCERIN 0.2mg/hour patch TD ONE (13:04)
[2023-06-18 13:18] LABS: BILIRUBIN,URINE NEGATIVE (Neg); CLARITY,URINE CLEAR (Clear); COLOR,URINE YELLOW (Yellow); GLUCOSE, URINE NEGATIVE (Neg); KETONES,URINE NEGATIVE (Neg); LEUKOCYTE ESTERASE ,URINE NEGATIVE (Neg); NITRITES, URINE NEGATIVE (Neg); OCCULT BLOOD,URINE NEGATIVE (Neg); PH,URINE 5.5 (4.8-8.0); PROTEIN,URINE NEGATIVE (Neg); UA COLLECTION TYPE CLN CATCH MIDSTREAM; UROBILINOGEN,URINE 0.2 E.U/dL (0.2-1.0)
[2023-06-18 13:28] LABS: URINE AMPHETAMINE SCREEN POSITIVE (Neg); URINE BARBITUATE SCREEN NEGATIVE (Neg); URINE BENZODIAZEPINES SCREEN NEGATIVE (Neg); URINE CANNABINOID SCREEN NEGATIVE (Neg); URINE COCAINE SCREEN NEGATIVE (Neg); URINE METHADONE SCREEN NEGATIVE (Neg); URINE OPIATE SCREEN NEGATIVE (Neg); URINE PHENCYCLIDINE SCREEN NEGATIVE (Neg)
[2023-06-18] MEDS ORDERED: magnesium hydroxide 30ml (MOM) UD suspension PO PRN (14:00)
[2023-06-18] MEDS ORDERED: ondansetron/PF 4mg/2ml inj IV PRN (14:00)
[2023-06-18] MEDS ORDERED: potassium Cl 20 mEq SR tablet PO PRN ×2 (14:00)
[2023-06-18] MEDS ORDERED: acetaminophen 325mg tablet PO PRN (14:00)
[2023-06-18] MEDS ORDERED: magnesium 2GM in 50ml NS 50 ML IV PRN (14:00)
[2023-06-18] MEDS ORDERED: mag hydrox/Alum hydrox/simeth 30ml oral suspension PO PRN (14:00)
[2023-06-18] MEDS ORDERED: magnesium Cl slow-release 64mg tablet PO PRN (14:00)
[2023-06-18] MEDS ORDERED: magnesium 4gm in 100ml NS 100 ML IV PRN (14:00)
[2023-06-18] MEDS ORDERED: potassium Cl 40MEQ/1/2NS 520ml 520 ML IV PRN (14:00)
[2023-06-18] MEDS: furosemide 10 MG/1 ML 10ml inj IV ONE (14:39)
[2023-06-18] MEDS: K and/or MAG REPLACEMENT MC SCH (20:00)
[2023-06-18] MEDS: carVEDilol 3.125mg tablet PO SCH (20:36)
[2023-06-18] MEDS: heparin, porcine 5000 units/ml vial SQ SCH (20:37)
[2023-06-18 22:38] VITALS: BP 125/98; PULSE 109; RESP 20; TEMP 98.6; O2SAT 93
[2023-06-18 22:45] VITALS: RESP 18; O2SAT 93
[2023-06-19] VITALS (8 sets, daily range): BP systolic 104–132; BP diastolic 67–98; PULSE 67–117; RESP 16–27; TEMP 97.2–98.2; O2SAT 93–97
[2023-06-19] MEDS: EMPAGLIFLOZIN 10 MG TABLET PO SCH (08:04)
[2023-06-19] MEDS: thiamine 100mg tablet PO SCH (08:04)
[2023-06-19] MEDS: losartan 25mg tablet PO SCH (08:04)
[2023-06-19] MEDS: folic acid 1mg tablet PO SCH (08:05)
[2023-06-19] MEDS: aspirin 81mg, enteric-coated 1 TAB TABLET.DR PO SCH (08:05)
[2023-06-19] MEDS: spironolactone 25 MG tablet PO SCH (08:06)
[2023-06-19 08:07] LABS: BASOPHILS # (AUTO) 0.1 X10'3 (0-0.2); BASOPHILS % (AUTO) 1.4 % (0-1); EOSINOPHILS # (AUTO) 0.1 X10'3 (0-0.9); EOSINOPHILS % (AUTO) 1.3 % (0-6); HEMATOCRIT 46.3 % (42.0-52.0); LYMPHOCYTES # (AUTO) 1.1 X10'3 (1.1-4.8); LYMPHOCYTES % (AUTO) 13.2 % (21-51); MEAN CORPUSCULAR HEMOGLOBIN 30.3 PG (27.0-31.0); MEAN CORPUSCULAR HGB CONC 32.4 g/dL (33.0-36.5); MEAN CORPUSCULAR VOLUME 93.5 FL (78-98); MONOCYTES # (AUTO) 0.4 X10'3 (0-0.9); MONOCYTES % (AUTO) 4.9 % (2-12); NEUTROPHILS # (AUTO) 6.4 X10'3 (1.8-7.7); NEUTROPHILS % (AUTO) 79.2 % (42-75); PLATELET COUNT 189 X10'3 (140-440); RED BLOOD COUNT 4.95 X10'6 (4.70-6.10); RED CELL DISTRIBUTION WIDTH 17.9 % (11.5-14.5); WHITE BLOOD COUNT 8.1 X10'3 (4.5-11.0)
[2023-06-19] MEDS: furosemide 10 MG/1 ML 10ml inj IV SCH (08:09)
[2023-06-19 08:25] LABS: ALANINE AMINOTRANSFERASE 51 U/L (12-78); ALBUMIN 3.6 G/DL (3.4-5.0); ALBUMIN/GLOBULIN RATIO 1.1 (1.1-1.5); ALKALINE PHOSPHATASE 160 IU/L (46-116); ANION GAP 9 (8-16); ASPARTATE AMINO TRANSFERASE 47 U/L (10-37); BILIRUBIN,TOTAL 2.4 MG/DL (0.1-1.0); BLOOD UREA NITROGEN 36 MG/DL (7-18); BUN/CREATININE RATIO 18.7 (10.0-20.0); CALCIUM 9.1 MG/DL (8.5-10.1); CHLORIDE 103 MMOL/L (99-107); CREATININE 1.93 MG/DL (0.60-1.10); GLUCOSE 99 MG/DL (70-104); MAGNESIUM 1.8 MG/DL (1.5-2.4); POTASSIUM 5.4 MMOL/L (3.5-5.1); SODIUM 136 MMOL/L (135-145); TOTAL CARBON DIOXIDE 24.1 MMOL/L (24-32); TOTAL PROTEIN 6.8 G/DL (6.4-8.2); eCRCL 45 ML/MIN; eGFR 35 ML/MIN
[2023-06-19] MEDS: temazepam 15mg capsule PO PRN (20:41)
[2023-06-19] MEDS: normal saline 1000ml 1,000 ML IV SCH (20:42)
[2023-06-19] MEDS: pneumococcal 23-VAL P-sac vacc 25 mcg/0.5ml vial IMVAC ONE (20:52)
[2023-06-19] MEDS: diazepam inj 5 MG/ML inj. IV PRN (23:03)
[2023-06-20 02:00] VITALS: BP 142/92; PULSE 108; PULSE 118; RESP 20; TEMP 97.2; O2SAT 94
[2023-06-20 06:00] VITALS: BP 125/93; PULSE 112; RESP 29; TEMP 97.5; O2SAT 94
[2023-06-20 06:29] LABS: BASOPHILS # (AUTO) 0.1 X10'3 (0-0.2); BASOPHILS % (AUTO) 1.4 % (0-1); EOSINOPHILS # (AUTO) 0.1 X10'3 (0-0.9); EOSINOPHILS % (AUTO) 0.7 % (0-6); HEMATOCRIT 45.4 % (42.0-52.0); HEMOGLOBIN 14.8 g/dl (14.0-17.9); LYMPHOCYTES # (AUTO) 1.5 X10'3 (1.1-4.8); LYMPHOCYTES % (AUTO) 17.9 % (21-51); MEAN CORPUSCULAR HEMOGLOBIN 30.2 PG (27.0-31.0); MEAN CORPUSCULAR HGB CONC 32.7 g/dL (33.0-36.5); MEAN CORPUSCULAR VOLUME 92.4 FL (78-98); MEAN PLATELET VOLUME 8.8 FL (7.4-10.4); MONOCYTES # (AUTO) 0.5 X10'3 (0-0.9); MONOCYTES % (AUTO) 5.5 % (2-12); NEUTROPHILS # (AUTO) 6.1 X10'3 (1.8-7.7); NEUTROPHILS % (AUTO) 74.5 % (42-75); PLATELET COUNT 231 X10'3 (140-440); RED BLOOD COUNT 4.91 X10'6 (4.70-6.10); RED CELL DISTRIBUTION WIDTH 17.6 % (11.5-14.5); WHITE BLOOD COUNT 8.2 X10'3 (4.5-11.0)
[2023-06-20 06:39] LABS: ALANINE AMINOTRANSFERASE 52 U/L (12-78); ALBUMIN 3.5 G/DL (3.4-5.0); ALBUMIN/GLOBULIN RATIO 1.1 (1.1-1.5); ALKALINE PHOSPHATASE 135 IU/L (46-116); ANION GAP 12 (8-16); ASPARTATE AMINO TRANSFERASE 47 U/L (10-37); BILIRUBIN,TOTAL 2.8 MG/DL (0.1-1.0); BLOOD UREA NITROGEN 43 MG/DL (7-18); BUN/CREATININE RATIO 18.8 (10.0-20.0); CALCIUM 8.8 MG/DL (8.5-10.1); CHLORIDE 101 MMOL/L (99-107); CREATININE 2.29 MG/DL (0.60-1.10); GLUCOSE 95 MG/DL (70-104); POTASSIUM 5.3 MMOL/L (3.5-5.1); SODIUM 139 MMOL/L (135-145); TOTAL CARBON DIOXIDE 26.5 MMOL/L (24-32); TOTAL PROTEIN 6.7 G/DL (6.4-8.2); eCRCL 38 ML/MIN; eGFR 29 ML/MIN
[2023-06-20 08:00] VITALS: RESP 29; O2SAT 93
[2023-06-20 10:00] VITALS: BP 112/89; PULSE 110
[2023-06-20] MEDS ORDERED: SPIR25TA5 PO (10:47)
[2023-06-20 10:58] VITALS: BP 120/86; PULSE 111; RESP 20; TEMP 98; O2SAT 97
[2023-06-20] MEDS ORDERED: EMPA10TA PO (17:51)
== END 2023-06-20 12:00 | disposition home or self-care (01) | DRG 133 ==
LOC: ER 10:38 → ED HOLD 14:12 → PCU 3S 22:25
PROVIDERS: ADMIT Family Medicine; ATTEND Family Medicine
DX: J96.01 Acute respiratory failure with hypoxia (principal); N17.0 Acute kidney failure with tubular necrosis; I50.43 Acute on chronic combined systolic (congestive) and diastolic (congestive) heart failure; I42.7 Cardiomyopathy due to drug and external agent; F17.200 Nicotine dependence, unspecified, uncomplicated; F10.10 Alcohol abuse, uncomplicated; Z20.822 Contact with and (suspected) exposure to COVID-19; R94.31 Abnormal electrocardiogram [ECG] [EKG]; F19.10 Other psychoactive substance abuse, uncomplicated; N18.9 Chronic kidney disease, unspecified; Z79.899 Other long term (current) drug therapy; Z79.82 Long term (current) use of aspirin; Z91.199 Patient's noncompliance with other medical treatment and regimen due to unspecified reason; Z56.0 Unemployment, unspecified
CPT/HCPCS: 36415; 71045; 80048; 80053; 80305; 81003; 83735; 83880; 84484; 85025; 87081; 87502; 87503; 87811; 90732; 93005; 93306; 97116; 97161; 97530; 99285; A4615; G0378; J1644; J1940; J3360; J3490; J7030

== ENCOUNTER 2023-07-14 22:19 | Emergency (ER) | payer MEDICAID ==
[~2023-07-14] VITALS: Ht 182.9 cm; Wt 89.5 kg
[~2023-07-14 22:19] MED LIST changes: +EMPA10TA PO
[2023-07-14 22:31] VITALS: BP 124/83; PULSE 116; RESP 20; TEMP 97.9; O2SAT 95
== END 2023-07-15 03:09 | disposition left against medical advice (07) ==
LOC: ER 22:20
DX: R07.89 Other chest pain (principal); Z53.21 Procedure and treatment not carried out due to patient leaving prior to being seen by health care provider
CPT/HCPCS: 99281; A4615

== ENCOUNTER 2023-07-15 12:20 | Inpatient (IN) | payer MEDICAID ==
[~2023-07-15] VITALS: Ht 190.5 cm; Wt 89.2 kg
[~2023-07-15 12:20] MED LIST changes: +etomidate 2mg/ml inj. ONE
[2023-07-15 12:37] LABS: BASOPHILS # (AUTO) 0.1 X10'3 (0-0.2); BASOPHILS % (AUTO) 1.3 % (0-1); EOSINOPHILS # (AUTO) 0.1 X10'3 (0-0.9); HEMOGLOBIN 14.9 g/dl (14.0-17.9); LYMPHOCYTES # (AUTO) 0.8 X10'3 (1.1-4.8); LYMPHOCYTES % (AUTO) 10.7 % (21-51); MEAN CORPUSCULAR HEMOGLOBIN 29.8 PG (27.0-31.0); MEAN CORPUSCULAR HGB CONC 32.5 g/dL (33.0-36.5); MEAN CORPUSCULAR VOLUME 91.7 FL (78-98); MEAN PLATELET VOLUME 9.2 FL (7.4-10.4); MONOCYTES # (AUTO) 0.5 X10'3 (0-0.9); MONOCYTES % (AUTO) 6.3 % (2-12); NEUTROPHILS # (AUTO) 6.2 X10'3 (1.8-7.7); NEUTROPHILS % (AUTO) 80.7 % (42-75); PLATELET COUNT 182 X10'3 (140-440); RED BLOOD COUNT 5.01 X10'6 (4.70-6.10); RED CELL DISTRIBUTION WIDTH 17.4 % (11.5-14.5); WHITE BLOOD COUNT 7.7 X10'3 (4.5-11.0)
[2023-07-15 13:20] LABS: ALBUMIN 3.5 G/DL (3.4-5.0); ANION GAP 10 (8-16); BLOOD UREA NITROGEN 47 MG/DL (7-18); BUN/CREATININE RATIO 14.6 (10.0-20.0); CALCIUM 9.1 MG/DL (8.5-10.1); CHLORIDE 106 MMOL/L (99-107); CREATININE 3.23 MG/DL (0.60-1.10); GLUCOSE 120 MG/DL (70-104); POTASSIUM 4.5 MMOL/L (3.5-5.1); PRO BRAIN NATRIURETIC PEPTIDE 8936 PG/ML (0-125); SODIUM 145 MMOL/L (135-145); TOTAL CARBON DIOXIDE 29.4 MMOL/L (24-32); eCRCL 27 ML/MIN; eGFR 20 ML/MIN
[2023-07-15] MEDS: azithromycin 250mg tablet PO ONE (17:13)
[2023-07-15] MEDS: CefTRIAXone 2gm/D5W 50ml BAG 50 ML IV ONE (17:13)
[2023-07-15] MEDS: nitroGLYCERIN 1gm ointment UD TP ONE (17:13)
[2023-07-15] MEDS: furosemide 10 MG/1 ML 10ml inj IV ONE (17:14)
[2023-07-15] MEDS: LORazepam 2 mg/ml vial IV ONE (17:14)
[2023-07-15] MEDS ORDERED: acetaminophen 650mg rectal suppository RC PRN (18:10)
[2023-07-15] MEDS ORDERED: HYDROcodone/acetaminophen 5mg/325mg tablet PO PRN (18:10)
[2023-07-15] MEDS ORDERED: ondansetron 4mg rapidly disintigrating tab PO PRN (18:10)
[2023-07-15] MEDS ORDERED: mag hydrox/Alum hydrox/simeth 30ml oral suspension PO PRN (18:10)
[2023-07-15] MEDS ORDERED: ondansetron/PF 4mg/2ml inj IV PRN (18:10)
[2023-07-15] MEDS ORDERED: diphenhydrAMINE 25mg capsule PO PRN (18:10)
[2023-07-15] MEDS ORDERED: morphine 2 MG/ML inj. syringe IV PRN (18:10)
[2023-07-15] MEDS ORDERED: acetaminophen 325mg tablet PO PRN ×2 (18:10)
[2023-07-15] MEDS ORDERED: HYDROcodone/acetaminophen 10/325mg tab PO PRN (18:10)
[2023-07-15] MEDS ORDERED: magnesium hydroxide 30ml (MOM) UD suspension PO PRN (18:10)
[2023-07-15 18:27] LABS: BILIRUBIN,URINE NEGATIVE (Neg); CLARITY,URINE CLEAR (Clear); COLOR,URINE YELLOW (Yellow); GLUCOSE, URINE 500 mg/dl (Neg); KETONES,URINE NEGATIVE (Neg); LEUKOCYTE ESTERASE ,URINE NEGATIVE (Neg); NITRITES, URINE NEGATIVE (Neg); OCCULT BLOOD,URINE NEGATIVE (Neg); PROTEIN,URINE NEGATIVE (Neg)
[2023-07-15 18:34] LABS: UA COLLECTION TYPE VOIDED; URINE AMPHETAMINE SCREEN POSITIVE (Neg); URINE BARBITUATE SCREEN NEGATIVE (Neg); URINE BENZODIAZEPINES SCREEN NEGATIVE (Neg); URINE CANNABINOID SCREEN NEGATIVE (Neg); URINE COCAINE SCREEN NEGATIVE (Neg); URINE METHADONE SCREEN NEGATIVE (Neg); URINE OPIATE SCREEN NEGATIVE (Neg); URINE PHENCYCLIDINE SCREEN NEGATIVE (Neg)
[2023-07-15 19:04] LABS: BASOPHILS # (AUTO) 0.1 X10'3 (0-0.2); BASOPHILS % (AUTO) 0.9 % (0-1); EOSINOPHILS # (AUTO) 0.1 X10'3 (0-0.9); EOSINOPHILS % (AUTO) 1.5 % (0-6); HEMATOCRIT 43.8 % (42.0-52.0); HEMOGLOBIN 14.3 g/dl (14.0-17.9); LYMPHOCYTES # (AUTO) 0.8 X10'3 (1.1-4.8); MEAN CORPUSCULAR HEMOGLOBIN 29.7 PG (27.0-31.0); MEAN CORPUSCULAR HGB CONC 32.6 g/dL (33.0-36.5); MEAN CORPUSCULAR VOLUME 91.1 FL (78-98); MEAN PLATELET VOLUME 9.1 FL (7.4-10.4); MONOCYTES # (AUTO) 0.5 X10'3 (0-0.9); NEUTROPHILS # (AUTO) 5.1 X10'3 (1.8-7.7); NEUTROPHILS % (AUTO) 77.6 % (42-75); PLATELET COUNT 160 X10'3 (140-440); RED CELL DISTRIBUTION WIDTH 17.1 % (11.5-14.5); WHITE BLOOD COUNT 6.5 X10'3 (4.5-11.0)
[2023-07-15 19:12] LABS: HEMOGLOBIN A1C 6.8 % (4.5-6.2)
[2023-07-15 19:13] LABS: D-DIMER 4.39 MG/L FEU (0-0.50); INR 1.2 INR
[2023-07-15 19:14] LABS: APTT 27 SECONDS (22-32)
[2023-07-15 19:19] LABS: CREATINE KINASE 192 U/L (39-308); LIPASE 63 U/L (16-77); MAGNESIUM 2.3 MG/DL (1.5-2.4); PHOSPHORUS 4.8 MG/DL (2.3-4.5); PRO BRAIN NATRIURETIC PEPTIDE 9635 PG/ML (0-125)
[2023-07-15 19:21] LABS: ETHANOL < 10 MG/DL (<10)
[2023-07-15] MEDS: docusate sod 100mg capsule PO SCH (19:50)
[2023-07-15] MEDS: heparin, porcine 5000 units/ml vial SQ SCH (19:51)
[2023-07-15] MEDS: furosemide 10 MG/1 ML 10ml inj IV SCH (19:57)
[2023-07-15] MEDS ORDERED: temazepam 15mg capsule PO PRN (21:00)
[2023-07-15 23:35] VITALS: BP 124/90; PULSE 110; RESP 24; TEMP 97.8; O2SAT 96
[2023-07-15 23:50] VITALS: RESP 24; O2SAT 96
[2023-07-16] VITALS (17 sets, daily range): BP systolic 99–129; BP diastolic 69–92; PULSE 88–125; RESP 14–34; TEMP 97.7–98.4; O2SAT 45–99
[2023-07-16] MEDS: methylPREDNISolone sod succ 125mg/2ml vial IV SCH (00:18)
[2023-07-16] MEDS: ipratropium/albuterol 3ml nebule NEB PRN (01:34)
[2023-07-16] MEDS: metoprolol tartrate 50mg tablet PO ONE (04:31)
[2023-07-16] MEDS ORDERED: dextrose 50%-water 50ml dispensing syringe IV PRN (04:50)
[2023-07-16] MEDS: MESSAGE TO PHARMACY PO ONE (04:50)
[2023-07-16] MEDS ORDERED: glucagon, human recombinant 1mg kit SUBCUT PRN (04:50)
[2023-07-16] MEDS ORDERED: DEXTROSE 15 GM of carb/4 tabs (each vial/BOTTLE has 4 tablets) PO PRN ×2 (04:50)
[2023-07-16 07:29] LABS: BASOPHILS % (AUTO) 0.7 % (0-1); EOSINOPHILS % (AUTO) 0.1 % (0-6); HEMATOCRIT 49.5 % (42.0-52.0); LYMPHOCYTES # (AUTO) 0.2 X10'3 (1.1-4.8); LYMPHOCYTES % (AUTO) 3.5 % (21-51); MEAN CORPUSCULAR HEMOGLOBIN 29.7 PG (27.0-31.0); MEAN CORPUSCULAR HGB CONC 32.2 g/dL (33.0-36.5); MEAN CORPUSCULAR VOLUME 92.1 FL (78-98); MEAN PLATELET VOLUME 9.4 FL (7.4-10.4); MONOCYTES # (AUTO) 0.1 X10'3 (0-0.9); MONOCYTES % (AUTO) 0.8 % (2-12); NEUTROPHILS # (AUTO) 5.9 X10'3 (1.8-7.7); NEUTROPHILS % (AUTO) 94.9 % (42-75); PLATELET COUNT 194 X10'3 (140-440); RED BLOOD COUNT 5.38 X10'6 (4.70-6.10); RED CELL DISTRIBUTION WIDTH 17.3 % (11.5-14.5); WHITE BLOOD COUNT 6.2 X10'3 (4.5-11.0)
[2023-07-16 08:01] LABS: ALANINE AMINOTRANSFERASE 48 U/L (12-78); ALBUMIN 3.4 G/DL (3.4-5.0); ALKALINE PHOSPHATASE 150 IU/L (46-116); ANION GAP 14 (8-16); ASPARTATE AMINO TRANSFERASE 50 U/L (10-37); BILIRUBIN,TOTAL 2.3 MG/DL (0.1-1.0); BLOOD UREA NITROGEN 51 MG/DL (7-18); BUN/CREATININE RATIO 15.6 (10.0-20.0); CALCIUM 9.2 MG/DL (8.5-10.1); CHLORIDE 102 MMOL/L (99-107); CHOL/HDL RATIO 2.8 (0.00-4.99); CHOLESTEROL 155 MG/DL (0-200); CREATININE 3.27 MG/DL (0.60-1.10); GLUCOSE 173 MG/DL (70-104); HDL CHOLESTEROL 56 MG/DL (35-60); LDL CHOLESTEROL 95 MG/DL (50-100); SODIUM 141 MMOL/L (135-145); TOTAL CARBON DIOXIDE 24.7 MMOL/L (24-32); TOTAL PROTEIN 6.9 G/DL (6.4-8.2); TRIGLYCERIDES 50 MG/DL (20-135); eCRCL 26 ML/MIN; eGFR 19 ML/MIN
[2023-07-16] MEDS: pantoprazole 40mg Tablet.DR PO SCH (08:26)
[2023-07-16] MEDS: insulin Lispro (HumaLOG) vial - multi-dose SQ SCH (13:30)
[2023-07-16] MEDS: azithromycin/NS 500mg/250ml 250 ML IV SCH (16:00)
[2023-07-16] MEDS: CefTRIAXone/D5W-Rocephin 1gm 50 ML IV SCH (16:16)
[2023-07-16] MEDS: morphine 2 MG/ML inj. syringe IV PRN (18:37)
[2023-07-16] MEDS: succinylcholine 20mg/ml inj IV ONE (18:50)
[2023-07-16 19:11] LABS: APTT 27 SECONDS (22-32); INR 1.3 INR; PROTHROMBIN TIME 13.5 SECONDS (9.0-12.0)
[2023-07-16 19:32] LABS: ALBUMIN 3.5 G/DL (3.4-5.0); ANION GAP 23 (8-16); BLOOD UREA NITROGEN 58 MG/DL (7-18); BUN/CREATININE RATIO 15.1 (10.0-20.0); CALCIUM 9.1 MG/DL (8.5-10.1); CHLORIDE 102 MMOL/L (99-107); CKMB RELATIVE INDEX 4.9 RATIO (0-2.5); CREATINE KINASE 228 U/L (39-308); CREATINE KINASE MB 11.2 ng/ml (0.3-3.6); CREATININE 3.83 MG/DL (0.60-1.10); GLUCOSE 140 MG/DL (70-104); MAGNESIUM 2.7 MG/DL (1.5-2.4); PHOSPHORUS 7.1 MG/DL (2.3-4.5); SODIUM 143 MMOL/L (135-145); TOTAL CARBON DIOXIDE 17.7 MMOL/L (24-32); eCRCL 23 ML/MIN; eGFR 16 ML/MIN
[2023-07-16 19:50] LABS: ABG HCO3 8.7 mmol/L (22.0-26.0); ABG OXYGEN SATURATION 99.4 % (94-97); ABG PH (T) 7.092 (7.340-7.440); ABG PO2 (T) 191.7 mmHg (75.0-100.0); ALLEN'S TEST Modified; FCOHb 1.2 % (0.0-3.9); FHHb 0.6 % (0.0-5.0); FMetHb 0.4 % (0.0-1.5); FO2Hb 97.8 % (94-97); MODE COOL AEROSOL; PATIENT TEMPERATURE 36.4; PEEP 10 cm H2O; RESPIRATORY RATE 12 b/min; TIDAL VOLUME 500 mL; TOTAL HEMOGLOBIN 16.2 G/dl (14.0-17.9)
[2023-07-16] MEDS: propofol 1000mg/100ml bottle 100 ML IV ONE (20:04)
[2023-07-16] MEDS: NORepinephrine 8mg/ 250ml NS 250 ML IV SCH (20:05)
[2023-07-16] MEDS: propofol 1000mg/100ml bottle 100 ML IV SCH (20:08)
[2023-07-16] MEDS: ringers solution, lacted 1,000 ML IV SCH (20:10)
[2023-07-16] MEDS: insulin glargine (Lantus) pen - multi-dose SQ SCH (20:49)
[2023-07-16 21:33] LABS: BASOPHILS % (AUTO) 0.1 % (0-1); EOSINOPHILS % (AUTO) 0.1 % (0-6); HEMATOCRIT 40.5 % (42.0-52.0); HEMOGLOBIN 12.7 g/dl (14.0-17.9); LYMPHOCYTES # (AUTO) 0.2 X10'3 (1.1-4.8); LYMPHOCYTES % (AUTO) 3.9 % (21-51); MEAN CORPUSCULAR HEMOGLOBIN 29.4 PG (27.0-31.0); MEAN CORPUSCULAR HGB CONC 31.4 g/dL (33.0-36.5); MEAN CORPUSCULAR VOLUME 93.8 FL (78-98); MEAN PLATELET VOLUME 9.9 FL (7.4-10.4); MONOCYTES # (AUTO) 0.1 X10'3 (0-0.9); MONOCYTES % (AUTO) 1.2 % (2-12); NEUTROPHILS # (AUTO) 4.6 X10'3 (1.8-7.7); NEUTROPHILS % (AUTO) 94.7 % (42-75); PLATELET COUNT 149 X10'3 (140-440); RED BLOOD COUNT 4.32 X10'6 (4.70-6.10); RED CELL DISTRIBUTION WIDTH 17.4 % (11.5-14.5); WHITE BLOOD COUNT 4.9 X10'3 (4.5-11.0)
[2023-07-16 22:15] LABS: ABG BASE EXCESS -6.4 mmol/L (-2.0-2.0); ABG HCO3 18.5 mmol/L (22.0-26.0); ABG PCO2 (T) 35.3 mmHg (35.0-48.0); ABG PH (T) 7.336 (7.340-7.440); ALLEN'S TEST Modified; FCOHb 1.3 % (0.0-3.9); FHHb 5.9 % (0.0-5.0); FMetHb 0.2 % (0.0-1.5); FO2Hb 92.6 % (94-97); PATIENT TEMPERATURE 36.7; PEEP 10 cm H2O; RESPIRATORY RATE 12 b/min; TIDAL VOLUME 500 mL; TOTAL HEMOGLOBIN 16.9 G/dl (14.0-17.9)
[2023-07-16] MEDS: sodium bicarbonate (8.4%) inj. 100 MEQ in dextrose 5%-water 1,000 ML IV SCH (23:12)
[2023-07-16 23:19] LABS: TRIGLYCERIDES 73 MG/DL (20-135)
[2023-07-17] VITALS (34 sets, daily range): BP systolic 85–127; BP diastolic 52–94; PULSE 101–114; RESP 12–19; O2SAT 93–96
[2023-07-17 03:04] LABS: BILIRUBIN,URINE NEGATIVE (Neg); CLARITY,URINE TURBID (Clear); COLOR,URINE AMBER (Yellow); GLUCOSE, URINE NEGATIVE (Neg); KETONES,URINE NEGATIVE (Neg); LEUKOCYTE ESTERASE ,URINE TRACE (Neg); NITRITES, URINE NEGATIVE (Neg); OCCULT BLOOD,URINE LARGE (Neg); PH,URINE 5.5 (4.8-8.0); PROTEIN,URINE 100 mg/dl (Neg); UROBILINOGEN,URINE 0.2 E.U/dL (0.2-1.0)
[2023-07-17 03:08] LABS: BASOPHILS % (AUTO) 0.2 % (0-1); EOSINOPHILS % (AUTO) 0 % (0-6); HEMATOCRIT 47.7 % (42.0-52.0); HEMOGLOBIN 15.6 g/dl (14.0-17.9); LYMPHOCYTES # (AUTO) 0.3 X10'3 (1.1-4.8); LYMPHOCYTES % (AUTO) 2.8 % (21-51); MEAN CORPUSCULAR HEMOGLOBIN 29.7 PG (27.0-31.0); MEAN CORPUSCULAR HGB CONC 32.6 g/dL (33.0-36.5); MEAN CORPUSCULAR VOLUME 91.2 FL (78-98); MEAN PLATELET VOLUME 9.7 FL (7.4-10.4); MONOCYTES # (AUTO) 0.4 X10'3 (0-0.9); MONOCYTES % (AUTO) 3.6 % (2-12); NEUTROPHILS # (AUTO) 9.8 X10'3 (1.8-7.7); NEUTROPHILS % (AUTO) 93.4 % (42-75); PLATELET COUNT 171 X10'3 (140-440); RED BLOOD COUNT 5.23 X10'6 (4.70-6.10); RED CELL DISTRIBUTION WIDTH 17.2 % (11.5-14.5); WHITE BLOOD COUNT 10.5 X10'3 (4.5-11.0)
[2023-07-17 03:13] LABS: UA COLLECTION TYPE FOLEY CATH
[2023-07-17 03:14] LABS: ABG BASE EXCESS -4.1 mmol/L (-2.0-2.0); ABG HCO3 19.7 mmol/L (22.0-26.0); ABG OXYGEN SATURATION 96.1 % (94-97); ABG PCO2 (T) 33.1 mmHg (35.0-48.0); ABG PH (T) 7.392 (7.340-7.440); ABG PO2 (T) 84.1 mmHg (75.0-100.0); ALLEN'S TEST Modified; FCOHb 1.2 % (0.0-3.9); FHHb 3.8 % (0.0-5.0); FMetHb 0.2 % (0.0-1.5); FO2Hb 94.8 % (94-97); PATIENT TEMPERATURE 37.1; PEEP 10 cm H2O; RESPIRATORY RATE 12 b/min; TIDAL VOLUME 500 mL; TOTAL HEMOGLOBIN 16.3 G/dl (14.0-17.9)
[2023-07-17 03:16] LABS: ALANINE AMINOTRANSFERASE 71 U/L (12-78); ALKALINE PHOSPHATASE 140 IU/L (46-116); ANION GAP 17 (8-16); ASPARTATE AMINO TRANSFERASE 85 U/L (10-37); BILIRUBIN,TOTAL 1.9 MG/DL (0.1-1.0); BLOOD UREA NITROGEN 64 MG/DL (7-18); BUN/CREATININE RATIO 15.8 (10.0-20.0); CALCIUM 8.7 MG/DL (8.5-10.1); CHLORIDE 103 MMOL/L (99-107); CREATININE 4.06 MG/DL (0.60-1.10); GLUCOSE 146 MG/DL (70-104); POTASSIUM 4.6 MMOL/L (3.5-5.1); SODIUM 141 MMOL/L (135-145); TOTAL CARBON DIOXIDE 21.2 MMOL/L (24-32); TOTAL PROTEIN 6.1 G/DL (6.4-8.2); TRIGLYCERIDES 82 MG/DL (20-135); eCRCL 21 ML/MIN; eGFR 15 ML/MIN
[2023-07-17 03:21] LABS: MUCUS STRANDS FEW /LPF (Neg); RBC,URINE TNTC /HPF (0-2); RENAL CELLS, URINE FEW /HPF; SQUAMOUS EPITHELIAL CELL,UR FEW /LPF (FEW)
[2023-07-17 03:22] LABS: BACTERIA,URINE 3+ /HPF (Neg); SPERM FEW /HPF (NEGATIVE)
[2023-07-17 03:23] LABS: TOTAL PROTEIN,URINE RANDOM 214.1 MG/DL
[2023-07-17 04:18] LABS: PHOSPHORUS 8.6 MG/DL (2.3-4.5)
[2023-07-17] MEDS: fentaNYL/PF 50MCG/1 ML 2ML syringe IV PRN (04:57)
[2023-07-17 05:39] LABS: UA EOSINOPHILS NO EOS /HPF
[2023-07-17] MEDS: DOBUTamine-DoBUTrex 500mg/D5W 250 ML IV SCH (07:25)
[2023-07-17] MEDS: pantoprazole 40MG/NS 100ML BAG 100 ML IV SCH (07:26)
[2023-07-17] MEDS: FENTANYL-0.9 % NACL/PF 100 ML IV SCH (07:26)
[2023-07-17] MEDS: ringers solution, lacted 1,000 ML IV SCH (11:24)
[2023-07-18] VITALS (34 sets, daily range): BP systolic 90–118; BP diastolic 50–80; PULSE 101–112; RESP 12–17; O2SAT 89–96
[2023-07-18 02:28] LABS: BASOPHILS % (AUTO) 0.1 % (0-1); EOSINOPHILS % (AUTO) 0 % (0-6); HEMATOCRIT 47.3 % (42.0-52.0); HEMOGLOBIN 15.4 g/dl (14.0-17.9); LYMPHOCYTES # (AUTO) 0.1 X10'3 (1.1-4.8); LYMPHOCYTES % (AUTO) 0.9 % (21-51); MEAN CORPUSCULAR HEMOGLOBIN 29.4 PG (27.0-31.0); MEAN CORPUSCULAR HGB CONC 32.5 g/dL (33.0-36.5); MEAN CORPUSCULAR VOLUME 90.2 FL (78-98); MEAN PLATELET VOLUME 9.5 FL (7.4-10.4); MONOCYTES # (AUTO) 0.2 X10'3 (0-0.9); MONOCYTES % (AUTO) 1.3 % (2-12); NEUTROPHILS # (AUTO) 13.8 X10'3 (1.8-7.7); NEUTROPHILS % (AUTO) 97.7 % (42-75); PLATELET COUNT 163 X10'3 (140-440); RED BLOOD COUNT 5.25 X10'6 (4.70-6.10); RED CELL DISTRIBUTION WIDTH 17.2 % (11.5-14.5); WHITE BLOOD COUNT 14.1 X10'3 (4.5-11.0)
[2023-07-18 02:29] LABS: ALANINE AMINOTRANSFERASE 49 U/L (12-78); ALBUMIN 2.6 G/DL (3.4-5.0); ALBUMIN/GLOBULIN RATIO 0.9 (1.1-1.5); ALKALINE PHOSPHATASE 116 IU/L (46-116); ANION GAP 12 (8-16); ASPARTATE AMINO TRANSFERASE 42 U/L (10-37); BILIRUBIN,TOTAL 1.6 MG/DL (0.1-1.0); BLOOD UREA NITROGEN 79 MG/DL (7-18); BUN/CREATININE RATIO 17.7 (10.0-20.0); CALCIUM 8.3 MG/DL (8.5-10.1); CHLORIDE 103 MMOL/L (99-107); CREATININE 4.47 MG/DL (0.60-1.10); GLUCOSE 152 MG/DL (70-104); MAGNESIUM 2.3 MG/DL (1.5-2.4); PHOSPHORUS 8.9 MG/DL (2.3-4.5); POTASSIUM 4.7 MMOL/L (3.5-5.1); SODIUM 141 MMOL/L (135-145); TOTAL CARBON DIOXIDE 25.8 MMOL/L (24-32); TOTAL PROTEIN 5.5 G/DL (6.4-8.2); eCRCL 19 ML/MIN; eGFR 13 ML/MIN
[2023-07-18 03:00] LABS: ABG BASE EXCESS -1.1 mmol/L (-2.0-2.0); ABG HCO3 22.5 mmol/L (22.0-26.0); ABG PCO2 (T) 33.9 mmHg (35.0-48.0); ABG PH (T) 7.437 (7.340-7.440); ABG PO2 (T) 60.5 mmHg (75.0-100.0); ALLEN'S TEST Modified; FCOHb 1.1 % (0.0-3.9); FHHb 7.9 % (0.0-5.0); FMetHb 0.3 % (0.0-1.5); FO2Hb 90.7 % (94-97); PATIENT TEMPERATURE 36.4; PEEP 10 cm H2O; RESPIRATORY RATE 12 b/min; TIDAL VOLUME 500 mL; TOTAL HEMOGLOBIN 16.7 G/dl (14.0-17.9)
[2023-07-18 07:38] LABS: OXYGEN SATURATION (MIXED VEN) 80.3 % (60-80); PO2 MIXED VENOUS (TEMP COR) 43.8 mmHg (35-46)
[2023-07-18] MEDS: furosemide 40mg/4ml inj IV SCH (08:00)
[2023-07-18] MEDS: docusate sodium 100mg/10ml UD cup PO SCH (09:28)
[2023-07-18] MEDS ORDERED: acetaminophen 325mg tablet GT PRN ×2 (13:14→13:15)
[2023-07-18] MEDS ORDERED: DEXTROSE 15 GM of carb/4 tabs (each vial/BOTTLE has 4 tablets) GT PRN ×2 (13:15)
[2023-07-18] MEDS ORDERED: mag hydrox/Alum hydrox/simeth 30ml oral suspension GT PRN (13:17)
[2023-07-18] MEDS ORDERED: ondansetron 4mg rapidly disintigrating tab PEG PRN (13:18)
[2023-07-18] MEDS ORDERED: temazepam 15mg capsule PEG PRN (13:18)
[2023-07-18] MEDS ORDERED: LOSA50TA64 PO (13:35)
[2023-07-18] MEDS ORDERED: SPIR25TA5 PO (13:35)
[2023-07-18] MEDS ORDERED: FOLI1TAB27 PO (13:35)
[2023-07-18] MEDS: insulin regular, human U-100 3ml vial - multi-dose SQ SCH (14:16)
[2023-07-18] MEDS ORDERED: EMPA10TA PO (16:39)
[2023-07-18] MEDS: docusate sodium 100mg/10ml UD cup GT SCH (19:42)
[2023-07-19] VITALS (37 sets, daily range): BP systolic 90–120; BP diastolic 42–77; PULSE 95–107; RESP 12–20; O2SAT 90–95
[2023-07-19 02:45] LABS: BASOPHILS % (AUTO) 0.2 % (0-1); EOSINOPHILS % (AUTO) 0 % (0-6); HEMATOCRIT 48.2 % (42.0-52.0); HEMOGLOBIN 15.5 g/dl (14.0-17.9); LYMPHOCYTES # (AUTO) 0.1 X10'3 (1.1-4.8); LYMPHOCYTES % (AUTO) 0.8 % (21-51); MEAN CORPUSCULAR HEMOGLOBIN 29.2 PG (27.0-31.0); MEAN CORPUSCULAR HGB CONC 32.1 g/dL (33.0-36.5); MEAN PLATELET VOLUME 8.9 FL (7.4-10.4); MONOCYTES # (AUTO) 0.2 X10'3 (0-0.9); MONOCYTES % (AUTO) 1.2 % (2-12); NEUTROPHILS # (AUTO) 12.4 X10'3 (1.8-7.7); NEUTROPHILS % (AUTO) 97.8 % (42-75); PLATELET COUNT 163 X10'3 (140-440); RED CELL DISTRIBUTION WIDTH 17.2 % (11.5-14.5); WHITE BLOOD COUNT 12.7 X10'3 (4.5-11.0)
[2023-07-19 03:02] LABS: ALANINE AMINOTRANSFERASE 44 U/L (12-78); ALBUMIN 2.7 G/DL (3.4-5.0); ALBUMIN/GLOBULIN RATIO 0.9 (1.1-1.5); ALKALINE PHOSPHATASE 109 IU/L (46-116); ANION GAP 11 (8-16); ASPARTATE AMINO TRANSFERASE 30 U/L (10-37); BILIRUBIN,TOTAL 1.5 MG/DL (0.1-1.0); BLOOD UREA NITROGEN 77 MG/DL (7-18); BUN/CREATININE RATIO 18.4 (10.0-20.0); CALCIUM 8.4 MG/DL (8.5-10.1); CHLORIDE 106 MMOL/L (99-107); CREATININE 4.19 MG/DL (0.60-1.10); GLUCOSE 131 MG/DL (70-104); MAGNESIUM 2.4 MG/DL (1.5-2.4); PHOSPHORUS 8.7 MG/DL (2.3-4.5); POTASSIUM 4.2 MMOL/L (3.5-5.1); PREALBUMIN 22.2 MG/DL (19-36); SODIUM 146 MMOL/L (135-145); TOTAL CARBON DIOXIDE 28.7 MMOL/L (24-32); TOTAL PROTEIN 5.6 G/DL (6.4-8.2); TRIGLYCERIDES 123 MG/DL (20-135); eCRCL 21 ML/MIN; eGFR 14 ML/MIN
[2023-07-19 04:49] LABS: ABG BASE EXCESS -0.8 mmol/L (-2.0-2.0); ABG HCO3 25.5 mmol/L (22.0-26.0); ABG OXYGEN SATURATION 94.2 % (94-97); ABG PCO2 (T) 47.1 mmHg (35.0-48.0); ABG PO2 (T) 70.6 mmHg (75.0-100.0); ALLEN'S TEST Modified; FCOHb 0.9 % (0.0-3.9); FHHb 5.7 % (0.0-5.0); FMetHb 0.2 % (0.0-1.5); FO2Hb 93.2 % (94-97); PATIENT TEMPERATURE 36.5; PEEP 10 cm H2O; RESPIRATORY RATE 12 b/min; TIDAL VOLUME 500 mL; TOTAL HEMOGLOBIN 16.3 G/dl (14.0-17.9)
[2023-07-19] MEDS: risperiDONE 2mg tablet PO ONE (10:54)
[2023-07-19 18:48] LABS: BILIRUBIN,URINE NEGATIVE (Neg); CLARITY,URINE SLIGHTLY CLOUDY (Clear); COLOR,URINE YELLOW (Yellow); GLUCOSE, URINE 100 mg/dl (Neg); KETONES,URINE NEGATIVE (Neg); LEUKOCYTE ESTERASE ,URINE NEGATIVE (Neg); NITRITES, URINE NEGATIVE (Neg); OCCULT BLOOD,URINE NEGATIVE (Neg); PH,URINE 5.5 (4.8-8.0); PROTEIN,URINE NEGATIVE (Neg); UROBILINOGEN,URINE 0.2 E.U/dL (0.2-1.0)
[2023-07-19 19:00] LABS: UA COLLECTION TYPE FOLEY CATH
[2023-07-19 19:04] LABS: BACTERIA,URINE FEW /HPF (Neg); SQUAMOUS EPITHELIAL CELL,UR FEW /LPF (FEW)
[2023-07-19 19:33] LABS: CAL OXALATE CRYSTALS 1+ /HPF (NEGATIVE)
[2023-07-20] VITALS (37 sets, daily range): BP systolic 88–137; BP diastolic 43–89; PULSE 93–116; RESP 14–16; O2SAT 92–97
[2023-07-20 03:03] LABS: ABG BASE EXCESS 4.7 mmol/L (-2.0-2.0); ABG HCO3 30.1 mmol/L (22.0-26.0); ABG OXYGEN SATURATION 96.3 % (94-97); ABG PCO2 (T) 45.9 mmHg (35.0-48.0); ABG PH (T) 7.433 (7.340-7.440); ALLEN'S TEST Modified; FCOHb 0.9 % (0.0-3.9); FHHb 3.7 % (0.0-5.0); FMetHb 0.2 % (0.0-1.5); FO2Hb 95.2 % (94-97); MODE Vent_AC/VC; PATIENT TEMPERATURE 36.4; PEEP 10 cm H2O; RESPIRATORY RATE 14 b/min; TIDAL VOLUME 500 mL; TOTAL HEMOGLOBIN 16.8 G/dl (14.0-17.9)
[2023-07-20 03:11] LABS: BASOPHILS % (AUTO) 0.1 % (0-1); EOSINOPHILS % (AUTO) 0 % (0-6); HEMATOCRIT 48.9 % (42.0-52.0); HEMOGLOBIN 15.9 g/dl (14.0-17.9); LYMPHOCYTES # (AUTO) 0.1 X10'3 (1.1-4.8); LYMPHOCYTES % (AUTO) 0.7 % (21-51); MEAN CORPUSCULAR HEMOGLOBIN 29.5 PG (27.0-31.0); MEAN CORPUSCULAR HGB CONC 32.4 g/dL (33.0-36.5); MEAN PLATELET VOLUME 9.2 FL (7.4-10.4); MONOCYTES # (AUTO) 0.4 X10'3 (0-0.9); NEUTROPHILS # (AUTO) 12.8 X10'3 (1.8-7.7); NEUTROPHILS % (AUTO) 96.2 % (42-75); PLATELET COUNT 143 X10'3 (140-440); RED BLOOD COUNT 5.37 X10'6 (4.70-6.10); RED CELL DISTRIBUTION WIDTH 17.3 % (11.5-14.5); WHITE BLOOD COUNT 13.3 X10'3 (4.5-11.0)
[2023-07-20 03:39] LABS: ALANINE AMINOTRANSFERASE 42 U/L (12-78); ALBUMIN 2.6 G/DL (3.4-5.0); ALBUMIN/GLOBULIN RATIO 0.9 (1.1-1.5); ALKALINE PHOSPHATASE 134 IU/L (46-116); ANION GAP 8 (8-16); ASPARTATE AMINO TRANSFERASE 30 U/L (10-37); BILIRUBIN,TOTAL 1.3 MG/DL (0.1-1.0); BLOOD UREA NITROGEN 77 MG/DL (7-18); BUN/CREATININE RATIO 23.5 (10.0-20.0); CALCIUM 7.7 MG/DL (8.5-10.1); CHLORIDE 110 MMOL/L (99-107); CREATININE 3.28 MG/DL (0.60-1.10); GLUCOSE 82 MG/DL (70-104); POTASSIUM 3.4 MMOL/L (3.5-5.1); SODIUM 150 MMOL/L (135-145); TOTAL CARBON DIOXIDE 32.1 MMOL/L (24-32); TOTAL PROTEIN 5.6 G/DL (6.4-8.2); eCRCL 26 ML/MIN; eGFR 19 ML/MIN
[2023-07-20 07:16] LABS: MAGNESIUM 2.2 MG/DL (1.5-2.4); PHOSPHORUS 5.1 MG/DL (2.3-4.5)
[2023-07-20] MEDS: risperiDONE 2mg tablet PO SCH (07:59)
[2023-07-20] MEDS: potassium Cl 40MEQ/270ML bag 250 ML IV ONE (09:27)
[2023-07-20] MEDS: erythromycin ethylsuccinate 200mg/5mL ORAL suspension PO SCH (09:49)
[2023-07-20] MEDS: albumin (human) 25% 100 ML IV solution IV ONE (14:56)
[2023-07-20 18:34] LABS: ALBUMIN 3.6 G/DL (3.4-5.0); ANION GAP 8 (8-16); BLOOD UREA NITROGEN 78 MG/DL (7-18); BUN/CREATININE RATIO 28.7 (10.0-20.0); CHLORIDE 111 MMOL/L (99-107); CREATININE 2.72 MG/DL (0.60-1.10); GLUCOSE 163 MG/DL (70-104); POTASSIUM 3.7 MMOL/L (3.5-5.1); SODIUM 153 MMOL/L (135-145); TOTAL CARBON DIOXIDE 33.6 MMOL/L (24-32); eCRCL 32 ML/MIN; eGFR 24 ML/MIN
[2023-07-21] VITALS (35 sets, daily range): BP systolic 102–131; BP diastolic 62–90; PULSE 90–114; RESP 14–15; O2SAT 91–97
[2023-07-21 04:10] LABS: BASOPHILS % (AUTO) 0.2 % (0-1); EOSINOPHILS % (AUTO) 0.1 % (0-6); HEMATOCRIT 41.3 % (42.0-52.0); HEMOGLOBIN 13.3 g/dl (14.0-17.9); LYMPHOCYTES # (AUTO) 0.1 X10'3 (1.1-4.8); LYMPHOCYTES % (AUTO) 1.2 % (21-51); MEAN CORPUSCULAR HEMOGLOBIN 29.5 PG (27.0-31.0); MEAN CORPUSCULAR HGB CONC 32.3 g/dL (33.0-36.5); MEAN CORPUSCULAR VOLUME 91.3 FL (78-98); MEAN PLATELET VOLUME 9.3 FL (7.4-10.4); MONOCYTES # (AUTO) 0.5 X10'3 (0-0.9); NEUTROPHILS # (AUTO) 8.5 X10'3 (1.8-7.7); NEUTROPHILS % (AUTO) 93.5 % (42-75); RED BLOOD COUNT 4.52 X10'6 (4.70-6.10); RED CELL DISTRIBUTION WIDTH 17.2 % (11.5-14.5); WHITE BLOOD COUNT 9.1 X10'3 (4.5-11.0)
[2023-07-21 04:14] LABS: ALANINE AMINOTRANSFERASE 29 U/L (12-78); ALBUMIN 3.5 G/DL (3.4-5.0); ALBUMIN/GLOBULIN RATIO 1.8 (1.1-1.5); ALKALINE PHOSPHATASE 114 IU/L (46-116); ANION GAP 8 (8-16); ASPARTATE AMINO TRANSFERASE 26 U/L (10-37); BLOOD UREA NITROGEN 78 MG/DL (7-18); BUN/CREATININE RATIO 31.6 (10.0-20.0); CHLORIDE 111 MMOL/L (99-107); CREATININE 2.47 MG/DL (0.60-1.10); GLUCOSE 140 MG/DL (70-104); POTASSIUM 3.5 MMOL/L (3.5-5.1); SODIUM 153 MMOL/L (135-145); TOTAL CARBON DIOXIDE 34.2 MMOL/L (24-32); TOTAL PROTEIN 5.4 G/DL (6.4-8.2); eCRCL 35 ML/MIN; eGFR 27 ML/MIN
[2023-07-21 04:57] LABS: PLATELET COUNT 110 X10'3 (140-440)
[2023-07-21 07:02] LABS: ABG HCO3 31.9 mmol/L (22.0-26.0); ABG OXYGEN SATURATION 95.7 % (94-97); ABG PCO2 (T) 49.7 mmHg (35.0-48.0); ABG PH (T) 7.423 (7.340-7.440); ABG PO2 (T) 74.5 mmHg (75.0-100.0); ALLEN'S TEST Modified; FCOHb 0.9 % (0.0-3.9); FHHb 4.2 % (0.0-5.0); FMetHb 0.3 % (0.0-1.5); FO2Hb 94.6 % (94-97); MODE VENT-AC/VC; PATIENT TEMPERATURE 36.4; PEEP 10 cm H2O; RESPIRATORY RATE 14 b/min; TIDAL VOLUME 500 mL; TOTAL HEMOGLOBIN 14.1 G/dl (14.0-17.9)
[2023-07-21] MEDS: magnesium hydroxide 30ml (MOM) UD suspension GT PRN (15:59)
[2023-07-22] VITALS (35 sets, daily range): BP systolic 91–132; BP diastolic 55–90; PULSE 84–112; RESP 12–22; O2SAT 93–100
[2023-07-22 03:18] LABS: BASOPHILS % (AUTO) 0.2 % (0-1); EOSINOPHILS % (AUTO) 0 % (0-6); HEMATOCRIT 45.7 % (42.0-52.0); HEMOGLOBIN 14.5 g/dl (14.0-17.9); LYMPHOCYTES # (AUTO) 0.1 X10'3 (1.1-4.8); LYMPHOCYTES % (AUTO) 0.6 % (21-51); MEAN CORPUSCULAR HEMOGLOBIN 29.1 PG (27.0-31.0); MEAN CORPUSCULAR HGB CONC 31.7 g/dL (33.0-36.5); MEAN PLATELET VOLUME 9.2 FL (7.4-10.4); MONOCYTES # (AUTO) 0.5 X10'3 (0-0.9); MONOCYTES % (AUTO) 4.7 % (2-12); NEUTROPHILS # (AUTO) 9.4 X10'3 (1.8-7.7); NEUTROPHILS % (AUTO) 94.5 % (42-75); PLATELET COUNT 96 X10'3 (140-440); RED BLOOD COUNT 4.97 X10'6 (4.70-6.10); RED CELL DISTRIBUTION WIDTH 17.2 % (11.5-14.5)
[2023-07-22 03:20] LABS: ABG BASE EXCESS 9.5 mmol/L (-2.0-2.0); ABG HCO3 35.9 mmol/L (22.0-26.0); ABG OXYGEN SATURATION 94.8 % (94-97); ABG PCO2 (T) 54.4 mmHg (35.0-48.0); ABG PH (T) 7.436 (7.340-7.440); ABG PO2 (T) 66.2 mmHg (75.0-100.0); ALLEN'S TEST POSITIVE; FCOHb 1.4 % (0.0-3.9); FHHb 5.1 % (0.0-5.0); FMetHb 0.1 % (0.0-1.5); FO2Hb 93.4 % (94-97); MODE VENT - AC; PATIENT TEMPERATURE 36.7; PEEP 10 cm H2O; RESPIRATORY RATE 14 b/min; TIDAL VOLUME 500 mL; TOTAL HEMOGLOBIN 15.2 G/dl (14.0-17.9)
[2023-07-22 03:39] LABS: ALANINE AMINOTRANSFERASE 30 U/L (12-78); ALBUMIN 3.1 G/DL (3.4-5.0); ALBUMIN/GLOBULIN RATIO 1.4 (1.1-1.5); ALKALINE PHOSPHATASE 118 IU/L (46-116); ANION GAP 4 (8-16); ASPARTATE AMINO TRANSFERASE 29 U/L (10-37); BILIRUBIN,TOTAL 1.7 MG/DL (0.1-1.0); BLOOD UREA NITROGEN 74 MG/DL (7-18); CHLORIDE 113 MMOL/L (99-107); CREATININE 1.76 MG/DL (0.60-1.10); GLUCOSE 93 MG/DL (70-104); MAGNESIUM 2.3 MG/DL (1.5-2.4); POTASSIUM 3.6 MMOL/L (3.5-5.1); PREALBUMIN 27.9 MG/DL (19-36); TOTAL CARBON DIOXIDE 38.1 MMOL/L (24-32); TOTAL PROTEIN 5.3 G/DL (6.4-8.2); TRIGLYCERIDES 62 MG/DL (20-135); eCRCL 49 ML/MIN; eGFR 39 ML/MIN
[2023-07-22 03:45] LABS: SODIUM 155 MMOL/L (135-145)
[2023-07-22] MEDS: furosemide 40mg/4ml inj IV SCH (07:06)
[2023-07-22] MEDS: risperiDONE 2mg tablet PEG SCH (07:06)
[2023-07-22] MEDS: furosemide 10 MG/1 ML 10ml inj IV SCH (10:42)
[2023-07-22] MEDS: metolazone 2.5mg tablet OGT SCH (11:56)
[2023-07-22] MEDS ORDERED: Neutra Phos packet PO SCH (13:00)
[2023-07-22] MEDS ORDERED: desmopressin inj. 20 MCG in normal saline 100ml IV soln 95 ML IV ONE (14:40)
[2023-07-22] MEDS ORDERED: desmopressin inj. 20 MCG in normal saline 100ml IV soln 100 ML IV ONE (14:48)
[2023-07-22] MEDS: Neutra Phos packet OGT SCH (15:11)
[2023-07-22] MEDS ORDERED: furosemide 10 MG/1 ML 10ml inj IV SCH (20:00)
[2023-07-22] MEDS ORDERED: metolazone 2.5mg tablet OGT SCH (20:00)
[2023-07-23] VITALS (32 sets, daily range): BP systolic 82–131; BP diastolic 44–85; PULSE 89–128; RESP 12–18; O2SAT 90–97
[2023-07-23 02:34] LABS: BASOPHILS % (AUTO) 0.4 % (0-1); EOSINOPHILS % (AUTO) 0 % (0-6); HEMATOCRIT 45.9 % (42.0-52.0); HEMOGLOBIN 14.6 g/dl (14.0-17.9); LYMPHOCYTES # (AUTO) 0.1 X10'3 (1.1-4.8); LYMPHOCYTES % (AUTO) 0.8 % (21-51); MEAN CORPUSCULAR HEMOGLOBIN 29.1 PG (27.0-31.0); MEAN CORPUSCULAR HGB CONC 31.7 g/dL (33.0-36.5); MEAN CORPUSCULAR VOLUME 91.6 FL (78-98); MEAN PLATELET VOLUME 9.4 FL (7.4-10.4); MONOCYTES # (AUTO) 0.5 X10'3 (0-0.9); MONOCYTES % (AUTO) 4.7 % (2-12); NEUTROPHILS # (AUTO) 9.2 X10'3 (1.8-7.7); NEUTROPHILS % (AUTO) 94.1 % (42-75); PLATELET COUNT 101 X10'3 (140-440); RED CELL DISTRIBUTION WIDTH 17.3 % (11.5-14.5); WHITE BLOOD COUNT 9.7 X10'3 (4.5-11.0)
[2023-07-23 02:45] LABS: ALANINE AMINOTRANSFERASE 39 U/L (12-78); ALBUMIN 2.8 G/DL (3.4-5.0); ALBUMIN/GLOBULIN RATIO 1.2 (1.1-1.5); ALKALINE PHOSPHATASE 115 IU/L (46-116); ANION GAP 7 (8-16); ASPARTATE AMINO TRANSFERASE 34 U/L (10-37); BILIRUBIN,TOTAL 1.5 MG/DL (0.1-1.0); BLOOD UREA NITROGEN 79 MG/DL (7-18); BUN/CREATININE RATIO 50.3 (10.0-20.0); CALCIUM 8.5 MG/DL (8.5-10.1); CHLORIDE 108 MMOL/L (99-107); CREATININE 1.57 MG/DL (0.60-1.10); GLUCOSE 151 MG/DL (70-104); MAGNESIUM 2.3 MG/DL (1.5-2.4); PHOSPHORUS 2.1 MG/DL (2.3-4.5); POTASSIUM 3.5 MMOL/L (3.5-5.1); SODIUM 154 MMOL/L (135-145); TOTAL CARBON DIOXIDE 39.3 MMOL/L (24-32); TOTAL PROTEIN 5.2 G/DL (6.4-8.2); eCRCL 55 ML/MIN; eGFR 45 ML/MIN
[2023-07-23 04:02] LABS: ABG BASE EXCESS 12.9 mmol/L (-2.0-2.0); ABG HCO3 38.6 mmol/L (22.0-26.0); ABG OXYGEN SATURATION 91.9 % (94-97); ABG PCO2 (T) 50.3 mmHg (35.0-48.0); ALLEN'S TEST POSITIVE; FCOHb 1.2 % (0.0-3.9); FO2Hb 90.8 % (94-97); MODE MASK - SIMPLE; PATIENT TEMPERATURE 36.2; PEEP 10 cm H2O; RESPIRATORY RATE 14 b/min; TIDAL VOLUME 500 mL; TOTAL HEMOGLOBIN 15.5 G/dl (14.0-17.9)
[2023-07-23] MEDS: predniSONE 20 mg tablet OGT SCH (12:01)
[2023-07-23] MEDS: desmopressin inj. 20 MCG in normal saline 100ml IV soln 100 ML IV ONE (14:37)
[2023-07-23] MEDS: acetaZOLAMIDE IV 500mg inj IV ONE (16:33)
[2023-07-23] MEDS: erythromycin ethylsuccinate 200mg/5mL ORAL suspension OGT SCH (17:13)
[2023-07-23] MEDS ORDERED: diphenhydrAMINE 25 MG/10 ML UD oral solution GT PRN (17:21)
[2023-07-23] MEDS ORDERED: HYDROcodone/acetaminophen 7.5MG/325MG per 15ml UD CUP PO PRN ×2 (17:22→17:23)
[2023-07-23] MEDS ORDERED: HYDROcodone/acetaminophen 7.5MG/325MG per 15ml UD CUP OGT PRN (17:23)
[2023-07-23] MEDS: NORepinephrine 8mg/ 250ml NS 250 ML IV SCH (19:55)
[2023-07-23] MEDS: furosemide 10 MG/1 ML 10ml inj IV SCH (20:46)
[2023-07-24] VITALS (34 sets, daily range): BP systolic 81–126; BP diastolic 46–83; PULSE 74–107; RESP 14–17; O2SAT 92–98
[2023-07-24 02:19] LABS: BASOPHILS % (AUTO) 0.1 % (0-1); EOSINOPHILS # (AUTO) 0.1 X10'3 (0-0.9); EOSINOPHILS % (AUTO) 0.4 % (0-6); HEMATOCRIT 43.4 % (42.0-52.0); HEMOGLOBIN 13.8 g/dl (14.0-17.9); LYMPHOCYTES # (AUTO) 0.4 X10'3 (1.1-4.8); LYMPHOCYTES % (AUTO) 3.1 % (21-51); MEAN CORPUSCULAR HEMOGLOBIN 28.7 PG (27.0-31.0); MEAN CORPUSCULAR HGB CONC 31.8 g/dL (33.0-36.5); MEAN CORPUSCULAR VOLUME 90.2 FL (78-98); MEAN PLATELET VOLUME 9.2 FL (7.4-10.4); MONOCYTES # (AUTO) 0.9 X10'3 (0-0.9); MONOCYTES % (AUTO) 7.5 % (2-12); NEUTROPHILS # (AUTO) 10.8 X10'3 (1.8-7.7); NEUTROPHILS % (AUTO) 88.9 % (42-75); PLATELET COUNT 115 X10'3 (140-440); RED BLOOD COUNT 4.82 X10'6 (4.70-6.10); RED CELL DISTRIBUTION WIDTH 16.4 % (11.5-14.5); WHITE BLOOD COUNT 12.2 X10'3 (4.5-11.0)
[2023-07-24 02:20] LABS: ALANINE AMINOTRANSFERASE 54 U/L (12-78); ALBUMIN 2.8 G/DL (3.4-5.0); ALBUMIN/GLOBULIN RATIO 1.1 (1.1-1.5); ALKALINE PHOSPHATASE 121 IU/L (46-116); ASPARTATE AMINO TRANSFERASE 45 U/L (10-37); BILIRUBIN,TOTAL 1.6 MG/DL (0.1-1.0); BLOOD UREA NITROGEN 88 MG/DL (7-18); BUN/CREATININE RATIO 53.3 (10.0-20.0); CALCIUM 8.2 MG/DL (8.5-10.1); CHLORIDE 102 MMOL/L (99-107); CREATININE 1.65 MG/DL (0.60-1.10); GLUCOSE 162 MG/DL (70-104); PHOSPHORUS 2.5 MG/DL (2.3-4.5); POTASSIUM 3.3 MMOL/L (3.5-5.1); SODIUM 148 MMOL/L (135-145); TOTAL PROTEIN 5.4 G/DL (6.4-8.2); TRIGLYCERIDES 76 MG/DL (20-135); eCRCL 55 ML/MIN; eGFR 42 ML/MIN
[2023-07-24 02:31] LABS: ANION GAP 4 (8-16)
[2023-07-24 02:34] LABS: TOTAL CARBON DIOXIDE 42.4 MMOL/L (24-32)
[2023-07-24] MEDS ORDERED: potassium Cl 20 mEq SR tablet PO PRN ×2 (03:40)
[2023-07-24] MEDS ORDERED: potassium Cl 40MEQ/1/2NS 520ml 520 ML IV PRN (03:40)
[2023-07-24] MEDS ORDERED: magnesium Cl slow-release 64mg tablet PO PRN (03:40)
[2023-07-24] MEDS ORDERED: magnesium 2GM in 50ml NS 50 ML IV PRN (03:40)
[2023-07-24] MEDS ORDERED: magnesium 4gm in 100ml NS 100 ML IV PRN (03:40)
[2023-07-24 03:54] LABS: ABG BASE EXCESS 15.3 mmol/L (-2.0-2.0); ABG HCO3 40.4 mmol/L (22.0-26.0); ABG OXYGEN SATURATION 95.2 % (94-97); ABG PCO2 (T) 49.2 mmHg (35.0-48.0); ABG PH (T) 7.532 (7.340-7.440); ABG PO2 (T) 68.9 mmHg (75.0-100.0); ALLEN'S TEST Modified; FHHb 4.7 % (0.0-5.0); FMetHb 0.3 % (0.0-1.5); MODE VENT - prvc; PATIENT TEMPERATURE 36.9; PEEP 5 cm H2O; RESPIRATORY RATE 14 b/min; TIDAL VOLUME 500 mL; TOTAL HEMOGLOBIN 14.6 G/dl (14.0-17.9)
[2023-07-24] MEDS: potassium Cl 40MEQ/270ML bag 270 ML IV PRN (03:59)
[2023-07-24] MEDS: K and/or MAG REPLACEMENT MC SCH (08:00)
[2023-07-24] MEDS: metolazone 2.5mg tablet OGT SCH (13:20)
[2023-07-24] MEDS: erythromycin ethylsuccinate 200mg/5mL ORAL suspension OGT SCH (16:16)
[2023-07-25] VITALS (36 sets, daily range): BP systolic 88–115; BP diastolic 50–72; PULSE 72–87; RESP 12–14; O2SAT 92–100
[2023-07-25 02:39] LABS: BASOPHILS % (AUTO) 0.2 % (0-1); EOSINOPHILS # (AUTO) 0.2 X10'3 (0-0.9); EOSINOPHILS % (AUTO) 1.9 % (0-6); HEMATOCRIT 42.6 % (42.0-52.0); HEMOGLOBIN 13.8 g/dl (14.0-17.9); LYMPHOCYTES # (AUTO) 0.8 X10'3 (1.1-4.8); LYMPHOCYTES % (AUTO) 9.1 % (21-51); MEAN CORPUSCULAR HEMOGLOBIN 28.9 PG (27.0-31.0); MEAN CORPUSCULAR HGB CONC 32.3 g/dL (33.0-36.5); MEAN CORPUSCULAR VOLUME 89.6 FL (78-98); MEAN PLATELET VOLUME 9.9 FL (7.4-10.4); MONOCYTES # (AUTO) 0.8 X10'3 (0-0.9); NEUTROPHILS # (AUTO) 6.8 X10'3 (1.8-7.7); NEUTROPHILS % (AUTO) 79.8 % (42-75); PLATELET COUNT 123 X10'3 (140-440); RED BLOOD COUNT 4.76 X10'6 (4.70-6.10); RED CELL DISTRIBUTION WIDTH 16.9 % (11.5-14.5); WHITE BLOOD COUNT 8.5 X10'3 (4.5-11.0)
[2023-07-25 02:51] LABS: ALANINE AMINOTRANSFERASE 55 U/L (12-78); ALBUMIN 2.7 G/DL (3.4-5.0); ALBUMIN/GLOBULIN RATIO 1.1 (1.1-1.5); ALKALINE PHOSPHATASE 117 IU/L (46-116); ANION GAP 4 (8-16); ASPARTATE AMINO TRANSFERASE 54 U/L (10-37); BILIRUBIN,TOTAL 1.7 MG/DL (0.1-1.0); BLOOD UREA NITROGEN 89 MG/DL (7-18); BUN/CREATININE RATIO 54.6 (10.0-20.0); CALCIUM 8.4 MG/DL (8.5-10.1); CHLORIDE 101 MMOL/L (99-107); CREATININE 1.63 MG/DL (0.60-1.10); GLUCOSE 127 MG/DL (70-104); MAGNESIUM 1.9 MG/DL (1.5-2.4); PHOSPHORUS 2.7 MG/DL (2.3-4.5); POTASSIUM 3.3 MMOL/L (3.5-5.1); SODIUM 143 MMOL/L (135-145); TOTAL CARBON DIOXIDE 38.5 MMOL/L (24-32); TOTAL PROTEIN 5.2 G/DL (6.4-8.2); TRIGLYCERIDES 71 MG/DL (20-135); eCRCL 56 ML/MIN; eGFR 43 ML/MIN
[2023-07-25 07:58] LABS: ABG BASE EXCESS 13.5 mmol/L (-2.0-2.0); ABG HCO3 39.3 mmol/L (22.0-26.0); ABG OXYGEN SATURATION 95.7 % (94-97); ABG PCO2 (T) 53.5 mmHg (35.0-48.0); ABG PH (T) 7.484 (7.340-7.440); ABG PO2 (T) 72.4 mmHg (75.0-100.0); ALLEN'S TEST POSITIVE; FCOHb 1.2 % (0.0-3.9); FHHb 4.2 % (0.0-5.0); FMetHb 0.3 % (0.0-1.5); FO2Hb 94.3 % (94-97); MODE VENT - AC/VC; PEEP 10 cm H2O; RESPIRATORY RATE 14 b/min; TIDAL VOLUME 500 mL; TOTAL HEMOGLOBIN 14.6 G/dl (14.0-17.9)
[2023-07-25] MEDS: dextrose 50%-water 50ml dispensing syringe IV PRN (19:46)
[2023-07-26] VITALS (45 sets, daily range): BP systolic 87–108; BP diastolic 51–76; PULSE 76–114; RESP 10–18; O2SAT 92–97
[2023-07-26 03:09] LABS: ALANINE AMINOTRANSFERASE 76 U/L (12-78); ALBUMIN 2.5 G/DL (3.4-5.0); ALBUMIN/GLOBULIN RATIO 0.9 (1.1-1.5); ALKALINE PHOSPHATASE 119 IU/L (46-116); ASPARTATE AMINO TRANSFERASE 53 U/L (10-37); BILIRUBIN,TOTAL 1.7 MG/DL (0.1-1.0); BLOOD UREA NITROGEN 84 MG/DL (7-18); BUN/CREATININE RATIO 57.5 (10.0-20.0); CALCIUM 8.1 MG/DL (8.5-10.1); CHLORIDE 100 MMOL/L (99-107); CREATININE 1.46 MG/DL (0.60-1.10); GLUCOSE 173 MG/DL (70-104); MAGNESIUM 1.6 MG/DL (1.5-2.4); PHOSPHORUS 3.2 MG/DL (2.3-4.5); POTASSIUM 3.5 MMOL/L (3.5-5.1); PREALBUMIN 43.6 MG/DL (19-36); SODIUM 145 MMOL/L (135-145); TOTAL PROTEIN 5.4 G/DL (6.4-8.2); eCRCL 63 ML/MIN; eGFR 49 ML/MIN
[2023-07-26 03:16] LABS: ANION GAP 6 (8-16); TOTAL CARBON DIOXIDE 39.5 MMOL/L (24-32)
[2023-07-26 03:27] LABS: BASOPHILS % (AUTO) 0.2 % (0-1); EOSINOPHILS # (AUTO) 0.2 X10'3 (0-0.9); EOSINOPHILS % (AUTO) 2.2 % (0-6); HEMATOCRIT 42.5 % (42.0-52.0); HEMOGLOBIN 13.9 g/dl (14.0-17.9); LYMPHOCYTES # (AUTO) 0.8 X10'3 (1.1-4.8); LYMPHOCYTES % (AUTO) 10.3 % (21-51); MEAN CORPUSCULAR HEMOGLOBIN 29.2 PG (27.0-31.0); MEAN CORPUSCULAR HGB CONC 32.6 g/dL (33.0-36.5); MEAN CORPUSCULAR VOLUME 89.4 FL (78-98); MEAN PLATELET VOLUME 9.3 FL (7.4-10.4); MONOCYTES # (AUTO) 0.7 X10'3 (0-0.9); MONOCYTES % (AUTO) 9.4 % (2-12); NEUTROPHILS # (AUTO) 6.1 X10'3 (1.8-7.7); NEUTROPHILS % (AUTO) 77.9 % (42-75); PLATELET COUNT 118 X10'3 (140-440); RED BLOOD COUNT 4.76 X10'6 (4.70-6.10); RED CELL DISTRIBUTION WIDTH 16.1 % (11.5-14.5); WHITE BLOOD COUNT 7.8 X10'3 (4.5-11.0)
[2023-07-26 04:26] LABS: ABG BASE EXCESS 13.3 mmol/L (-2.0-2.0); ABG HCO3 39.6 mmol/L (22.0-26.0); ABG OXYGEN SATURATION 95.5 % (94-97); ABG PH (T) 7.468 (7.340-7.440); ABG PO2 (T) 72.2 mmHg (75.0-100.0); ALLEN'S TEST Modified; FCOHb 1.6 % (0.0-3.9); FHHb 4.4 % (0.0-5.0); FMetHb 0.3 % (0.0-1.5); FO2Hb 93.7 % (94-97); MODE CMV VC; PATIENT TEMPERATURE 37.2; PEEP 7 cm H2O; RESPIRATORY RATE 12 b/min; TIDAL VOLUME 500 mL; TOTAL HEMOGLOBIN 14.8 G/dl (14.0-17.9)
[2023-07-26] MEDS: acetylcysteine 200 MG/ml 4ml vial INH SCH (11:50)
[2023-07-26] MEDS: ipratropium/albuterol 3ml nebule NEB SCH (11:51)
[2023-07-26] MEDS: furosemide 40mg/4ml inj IV SCH (20:27)
[2023-07-27] VITALS (44 sets, daily range): BP systolic 81–148; BP diastolic 51–88; PULSE 102–121; RESP 11–28; O2SAT 90–98
[2023-07-27 02:14] LABS: BASOPHILS % (AUTO) 0.1 % (0-1); EOSINOPHILS # (AUTO) 0.1 X10'3 (0-0.9); EOSINOPHILS % (AUTO) 0.4 % (0-6); HEMATOCRIT 42.2 % (42.0-52.0); HEMOGLOBIN 13.8 g/dl (14.0-17.9); LYMPHOCYTES # (AUTO) 0.7 X10'3 (1.1-4.8); LYMPHOCYTES % (AUTO) 4.7 % (21-51); MEAN CORPUSCULAR HGB CONC 32.6 g/dL (33.0-36.5); MEAN PLATELET VOLUME 9.1 FL (7.4-10.4); MONOCYTES # (AUTO) 1.1 X10'3 (0-0.9); MONOCYTES % (AUTO) 7.8 % (2-12); NEUTROPHILS # (AUTO) 12.5 X10'3 (1.8-7.7); PLATELET COUNT 125 X10'3 (140-440); RED BLOOD COUNT 4.74 X10'6 (4.70-6.10); RED CELL DISTRIBUTION WIDTH 16.4 % (11.5-14.5); WHITE BLOOD COUNT 14.4 X10'3 (4.5-11.0)
[2023-07-27 02:24] LABS: ALANINE AMINOTRANSFERASE 73 U/L (12-78); ALBUMIN 2.8 G/DL (3.4-5.0); ALBUMIN/GLOBULIN RATIO 0.9 (1.1-1.5); ALKALINE PHOSPHATASE 129 IU/L (46-116); ANION GAP 7 (8-16); ASPARTATE AMINO TRANSFERASE 45 U/L (10-37); BILIRUBIN,TOTAL 1.5 MG/DL (0.1-1.0); BLOOD UREA NITROGEN 79 MG/DL (7-18); BUN/CREATININE RATIO 55.2 (10.0-20.0); CALCIUM 8.7 MG/DL (8.5-10.1); CHLORIDE 99 MMOL/L (99-107); CREATININE 1.43 MG/DL (0.60-1.10); GLUCOSE 110 MG/DL (70-104); POTASSIUM 3.4 MMOL/L (3.5-5.1); SODIUM 145 MMOL/L (135-145); TOTAL CARBON DIOXIDE 39.1 MMOL/L (24-32); TOTAL PROTEIN 5.9 G/DL (6.4-8.2); eCRCL 64 ML/MIN; eGFR 50 ML/MIN
[2023-07-27] MEDS ORDERED: POTASSIUM BICARB 20meq eff tab 20 MEQ TABLET.EFF PO PRN ×2 (03:38→03:40)
[2023-07-27 04:15] LABS: ABG HCO3 35.9 mmol/L (22.0-26.0); ABG OXYGEN SATURATION 92.9 % (94-97); ABG PH (T) 7.479 (7.340-7.440); ALLEN'S TEST Modified; FCOHb 1.4 % (0.0-3.9); FO2Hb 91.6 % (94-97); MODE CMV VC; PATIENT TEMPERATURE 38.2; PEEP 7 cm H2O; RESPIRATORY RATE 12 b/min; TIDAL VOLUME 500 mL; TOTAL HEMOGLOBIN 14.8 G/dl (14.0-17.9)
[2023-07-27] MEDS: POTASSIUM BICARB 20meq eff tab 20 MEQ TABLET.EFF OGT PRN (04:15)
[2023-07-27] MEDS: CefTRIAXone/D5W-Rocephin 1gm 50 ML IV SCH (13:59)
[2023-07-27] MEDS ORDERED: albuterol 2.5 MG/3 ML nebule NEB PRN (19:35)
[2023-07-27] MEDS: HYDROcodone/acetaminophen 7.5MG/325MG per 15ml UD CUP OGT PRN (22:40)
[2023-07-28] VITALS (58 sets, daily range): BP systolic 74–136; BP diastolic 51–92; PULSE 78–119; RESP 14–31; TEMP 98.2–98.3; O2SAT 87–97
[2023-07-28] MEDS: diphenhydrAMINE 50 mg/ml inj IV PRN (00:17)
[2023-07-28 01:33] LABS: BASOPHILS # (AUTO) 0.1 X10'3 (0-0.2); BASOPHILS % (AUTO) 0.6 % (0-1); EOSINOPHILS # (AUTO) 0.1 X10'3 (0-0.9); EOSINOPHILS % (AUTO) 0.5 % (0-6); HEMATOCRIT 41.7 % (42.0-52.0); HEMOGLOBIN 13.8 g/dl (14.0-17.9); LYMPHOCYTES # (AUTO) 0.5 X10'3 (1.1-4.8); LYMPHOCYTES % (AUTO) 3.7 % (21-51); MEAN CORPUSCULAR HEMOGLOBIN 29.1 PG (27.0-31.0); MEAN CORPUSCULAR VOLUME 88.4 FL (78-98); MEAN PLATELET VOLUME 9.3 FL (7.4-10.4); MONOCYTES # (AUTO) 1.2 X10'3 (0-0.9); MONOCYTES % (AUTO) 8.2 % (2-12); NEUTROPHILS # (AUTO) 12.6 X10'3 (1.8-7.7); PLATELET COUNT 122 X10'3 (140-440); RED BLOOD COUNT 4.72 X10'6 (4.70-6.10); RED CELL DISTRIBUTION WIDTH 16.4 % (11.5-14.5); WHITE BLOOD COUNT 14.4 X10'3 (4.5-11.0)
[2023-07-28 01:45] LABS: ALANINE AMINOTRANSFERASE 66 U/L (12-78); ALBUMIN 2.9 G/DL (3.4-5.0); ALBUMIN/GLOBULIN RATIO 0.9 (1.1-1.5); ALKALINE PHOSPHATASE 141 IU/L (46-116); ANION GAP 6 (8-16); ASPARTATE AMINO TRANSFERASE 48 U/L (10-37); BILIRUBIN,TOTAL 1.5 MG/DL (0.1-1.0); BLOOD UREA NITROGEN 68 MG/DL (7-18); BUN/CREATININE RATIO 54.8 (10.0-20.0); CALCIUM 8.7 MG/DL (8.5-10.1); CHLORIDE 99 MMOL/L (99-107); CREATININE 1.24 MG/DL (0.60-1.10); GLUCOSE 107 MG/DL (70-104); MAGNESIUM 1.8 MG/DL (1.5-2.4); PHOSPHORUS 3.2 MG/DL (2.3-4.5); POTASSIUM 3.4 MMOL/L (3.5-5.1); SODIUM 143 MMOL/L (135-145); TOTAL CARBON DIOXIDE 37.8 MMOL/L (24-32); TOTAL PROTEIN 6.2 G/DL (6.4-8.2); TRIGLYCERIDES 44 MG/DL (20-135); eCRCL 74 ML/MIN; eGFR 59 ML/MIN
[2023-07-28] MEDS ORDERED: midodrine tablet 2.5 MG TABLET PO SCH (11:00)
[2023-07-28] MEDS: midodrine 5mg tablet PO SCH (11:01)
[2023-07-28] MEDS: heparin, porcine 5000 units/ml vial SQ SCH (11:02)
[2023-07-28] MEDS: POTASSIUM BICARB 20meq eff tab 20 MEQ TABLET.EFF OGT PRN (14:44)
[2023-07-29] VITALS (12 sets, daily range): BP systolic 76–98; BP diastolic 58–73; PULSE 74–110; RESP 14–24; TEMP 98.2–98.6; O2SAT 64–97
[2023-07-29 02:03] LABS: BASOPHILS # (AUTO) 0.1 X10'3 (0-0.2); BASOPHILS % (AUTO) 0.5 % (0-1); EOSINOPHILS # (AUTO) 0.1 X10'3 (0-0.9); EOSINOPHILS % (AUTO) 1.1 % (0-6); HEMATOCRIT 43.6 % (42.0-52.0); HEMOGLOBIN 14.3 g/dl (14.0-17.9); LYMPHOCYTES # (AUTO) 0.6 X10'3 (1.1-4.8); LYMPHOCYTES % (AUTO) 5.5 % (21-51); MEAN CORPUSCULAR HGB CONC 32.8 g/dL (33.0-36.5); MEAN CORPUSCULAR VOLUME 88.4 FL (78-98); MEAN PLATELET VOLUME 9.7 FL (7.4-10.4); MONOCYTES % (AUTO) 9.1 % (2-12); NEUTROPHILS # (AUTO) 9.6 X10'3 (1.8-7.7); NEUTROPHILS % (AUTO) 83.8 % (42-75); PLATELET COUNT 145 X10'3 (140-440); RED BLOOD COUNT 4.93 X10'6 (4.70-6.10); RED CELL DISTRIBUTION WIDTH 16.5 % (11.5-14.5); WHITE BLOOD COUNT 11.4 X10'3 (4.5-11.0)
[2023-07-29 02:14] LABS: ALANINE AMINOTRANSFERASE 63 U/L (12-78); ALBUMIN/GLOBULIN RATIO 0.9 (1.1-1.5); ALKALINE PHOSPHATASE 138 IU/L (46-116); ANION GAP 3 (8-16); ASPARTATE AMINO TRANSFERASE 44 U/L (10-37); BILIRUBIN,TOTAL 1.2 MG/DL (0.1-1.0); BLOOD UREA NITROGEN 63 MG/DL (7-18); BUN/CREATININE RATIO 49.6 (10.0-20.0); CALCIUM 8.7 MG/DL (8.5-10.1); CHLORIDE 94 MMOL/L (99-107); CREATININE 1.27 MG/DL (0.60-1.10); GLUCOSE 113 MG/DL (70-104); MAGNESIUM 1.8 MG/DL (1.5-2.4); POTASSIUM 3.4 MMOL/L (3.5-5.1); PREALBUMIN 39.1 MG/DL (19-36); SODIUM 136 MMOL/L (135-145); TOTAL PROTEIN 6.3 G/DL (6.4-8.2); eCRCL 72 ML/MIN; eGFR 57 ML/MIN
[2023-07-29] MEDS ORDERED: magnesium 2GM in 50ml NS 50 ML IV PRN (08:05)
[2023-07-29] MEDS ORDERED: potassium Cl 40MEQ/1/2NS 520ml 520 ML IV PRN (08:05)
[2023-07-29] MEDS ORDERED: potassium Cl 40MEQ/270ML bag 250 ML IV PRN (08:05)
[2023-07-29] MEDS ORDERED: potassium Cl 20mEq/100mL bag 100 ML IV PRN (08:05)
[2023-07-29] MEDS ORDERED: potassium Cl 20 mEq SR tablet PO PRN (08:05)
[2023-07-29] MEDS ORDERED: potassium CL 10mEq/100ml bag 100 ML IV PRN (08:05)
[2023-07-29] MEDS ORDERED: magnesium 4gm in 100ml NS 100 ML IV PRN (08:05)
[2023-07-29] MEDS ORDERED: acetaminophen 325mg tablet PO PRN ×2 (08:25→08:26)
[2023-07-29] MEDS ORDERED: DEXTROSE 15 GM of carb/4 tabs (each vial/BOTTLE has 4 tablets) PO PRN ×2 (08:26→08:27)
[2023-07-29] MEDS ORDERED: diphenhydrAMINE 25 MG/10 ML UD oral solution PO PRN (08:28)
[2023-07-29] MEDS ORDERED: erythromycin ethylsuccinate 200mg/5mL ORAL suspension PO SCH (08:28)
[2023-07-29] MEDS ORDERED: docusate sodium 100mg/10ml UD cup PO SCH (08:28)
[2023-07-29] MEDS ORDERED: HYDROcodone/acetaminophen 10/325mg tab PO PRN (08:29)
[2023-07-29] MEDS ORDERED: HYDROcodone/acetaminophen 5mg/325mg tablet PO PRN (08:30)
[2023-07-29] MEDS ORDERED: mag hydrox/Alum hydrox/simeth 30ml oral suspension PO PRN (08:30)
[2023-07-29] MEDS ORDERED: POTASSIUM BICARB 20meq eff tab 20 MEQ TABLET.EFF PO PRN ×2 (08:31→08:32)
[2023-07-29] MEDS ORDERED: metolazone 2.5mg tablet PO SCH (08:31)
[2023-07-29] MEDS ORDERED: magnesium hydroxide 30ml (MOM) UD suspension PO PRN (08:31)
[2023-07-29] MEDS ORDERED: predniSONE 20 mg tablet PO SCH (08:32)
[2023-07-29] MEDS ORDERED: risperiDONE 2mg tablet PO SCH (08:32)
[2023-07-29] MEDS ORDERED: temazepam 15mg capsule PO PRN (08:33)
[2023-07-29] MEDS ORDERED: ondansetron 4mg rapidly disintigrating tab PO PRN (12:34)
[2023-07-29] MEDS: Neutra Phos packet PO SCH (13:13)
== END 2023-07-29 15:05 | DRG 720 ==
LOC: ER 12:21 → ED HOLD 18:13 → PCU 3S 22:35 → CICU 2S 07-16 18:48 → PCU 3S 07-28 16:27
PROVIDERS: ADMIT Family Medicine; ATTEND Family Medicine
PROC: 5A09357 Assistance with Respiratory Ventilation, Less than 24 Consecutive Hours, Continuous Positive Airway Pressure (ICD-10-PCS; principal; 2023-07-16)
PROC: 5A1955Z Respiratory Ventilation, Greater than 96 Consecutive Hours (ICD-10-PCS; 2023-07-16)
PROC: 0BH17EZ Insertion of Endotracheal Airway into Trachea, Via Natural or Artificial Opening (ICD-10-PCS; 2023-07-16)
PROC: CB121ZZ Planar Nuclear Medicine Imaging of Lungs and Bronchi using Technetium 99m (Tc-99m) (ICD-10-PCS; 2023-07-16)
PROC: 02HV33Z Insertion of Infusion Device into Superior Vena Cava, Percutaneous Approach (ICD-10-PCS; 2023-07-26)
DX: A41.02 Sepsis due to Methicillin resistant Staphylococcus aureus (principal); J96.21 Acute and chronic respiratory failure with hypoxia; N17.0 Acute kidney failure with tubular necrosis; I46.9 Cardiac arrest, cause unspecified; G93.40 Encephalopathy, unspecified; J15.29 Pneumonia due to other staphylococcus; I50.43 Acute on chronic combined systolic (congestive) and diastolic (congestive) heart failure; D69.6 Thrombocytopenia, unspecified; J44.0 Chronic obstructive pulmonary disease with (acute) lower respiratory infection; I27.20 Pulmonary hypertension, unspecified; I13.0 Hypertensive heart and chronic kidney disease with heart failure and stage 1 through stage 4 chronic kidney disease, or unspecified chronic kidney disease; I42.7 Cardiomyopathy due to drug and external agent; E11.22 Type 2 diabetes mellitus with diabetic chronic kidney disease; E87.6 Hypokalemia; E87.3 Alkalosis; I82.811 Embolism and thrombosis of superficial veins of right lower extremity; J44.1 Chronic obstructive pulmonary disease with (acute) exacerbation; K70.9 Alcoholic liver disease, unspecified; F10.21 Alcohol dependence, in remission; F15.10 Other stimulant abuse, uncomplicated; K73.9 Chronic hepatitis, unspecified; N18.30 Chronic kidney disease, stage 3 unspecified; I47.10 Supraventricular tachycardia, unspecified; F17.210 Nicotine dependence, cigarettes, uncomplicated; Z79.82 Long term (current) use of aspirin; Z79.899 Other long term (current) drug therapy; Z99.81 Dependence on supplemental oxygen; Z56.0 Unemployment, unspecified
CPT/HCPCS: 36415; 36569; 36600; 71045; 71250; 74018; 76770; 76942; 78582; 80048; 80053; 80061; 80305; 80320; 81001; 81003; 82550; 82553; 82570; 82803; 82810; 82948; 83036; 83605; 83690; 83735; 83874; 83880; 84100; 84132; 84134; 84145; 84156; 84300; 84478; 84484; 85018; 85025; 85379; 85610; 85730; 86140; 86885; 86900; 86901; 87040; 87070; 87077; 87081; 87088; 87186; 87207; 92508; 92616; 93005; 93308; 93925; 93970; 94002; 94003; 94640; 94664; 94668; 94760; 96365; 96375; 97116; 97161; 97530; 99285; A4333; A4615; A5200; A6213; A6258; A6449; A7015; A9539; A9540; C1751; C1758; C9113; G0378; J0330; J0456; J0696; J1120; J1200; J1250; J1644; J1815; J1940; J2060; J2270; J2597; J2704; J2930; J3010; J3480; J3490; J7030; J7040; J7070; J7120; J7512; P9047

== ENCOUNTER 2024-02-18 14:06 | Inpatient (IN) | payer MEDICAID ==
[~2024-02-18] VITALS: Ht 368.3 cm; Wt 75.0 kg
[~2024-02-18 14:06] MED LIST changes: -CARV3.1244 PO; -FURO20TA4 PO; -LOSA-415 PO; -SPIR25TA5 PO; -etomidate 2mg/ml inj. ONE
[2024-02-18 15:27] LABS: BASOPHILS # (AUTO) 0.1 X10'3 (0-0.2); BASOPHILS % (AUTO) 1.4 % (0-1); EOSINOPHILS # (AUTO) 0.1 X10'3 (0-0.9); EOSINOPHILS % (AUTO) 0.8 % (0-6); HEMATOCRIT 41.6 % (42.0-52.0); HEMOGLOBIN 13.4 g/dl (14.0-17.9); LYMPHOCYTES # (AUTO) 0.7 X10'3 (1.1-4.8); LYMPHOCYTES % (AUTO) 9.6 % (21-51); MEAN CORPUSCULAR HEMOGLOBIN 30.2 PG (27.0-31.0); MEAN CORPUSCULAR HGB CONC 32.2 g/dL (33.0-36.5); MEAN CORPUSCULAR VOLUME 93.8 FL (78-98); MEAN PLATELET VOLUME 8.8 FL (7.4-10.4); MONOCYTES # (AUTO) 0.4 X10'3 (0-0.9); MONOCYTES % (AUTO) 5.7 % (2-12); NEUTROPHILS # (AUTO) 5.7 X10'3 (1.8-7.7); NEUTROPHILS % (AUTO) 82.5 % (42-75); PLATELET COUNT 202 X10'3 (140-440); RED BLOOD COUNT 4.44 X10'6 (4.70-6.10); WHITE BLOOD COUNT 6.9 X10'3 (4.5-11.0)
[2024-02-18 15:42] LABS: ALANINE AMINOTRANSFERASE 206 U/L (12-78); ALKALINE PHOSPHATASE 175 IU/L (46-116); ANION GAP 9 (8-16); ASPARTATE AMINO TRANSFERASE 138 U/L (10-37); BILIRUBIN,TOTAL 1.4 MG/DL (0.1-1.0); BLOOD UREA NITROGEN 35 MG/DL (7-18); BUN/CREATININE RATIO 17.2 (10.0-20.0); CALCIUM 8.3 MG/DL (8.5-10.1); CHLORIDE 102 MMOL/L (99-107); CREATININE 2.04 MG/DL (0.60-1.10); GLUCOSE 131 MG/DL (70-104); POTASSIUM 3.3 MMOL/L (3.5-5.1); SODIUM 137 MMOL/L (135-145); TOTAL PROTEIN 6.1 G/DL (6.4-8.2); eCRCL 42 ML/MIN; eGFR 33 ML/MIN
[2024-02-18 15:50] LABS: PRO BRAIN NATRIURETIC PEPTIDE 6631 PG/ML (0-125)
[2024-02-18] MEDS ORDERED: magnesium hydroxide 30ml (MOM) UD suspension PO PRN (17:10)
[2024-02-18] MEDS ORDERED: magnesium sulf-water 2g/50mL 50 ML IV PRN (17:10)
[2024-02-18] MEDS ORDERED: magnesium sulf-water 4G/100mL 100 ML IV PRN (17:10)
[2024-02-18] MEDS ORDERED: ondansetron/PF 4mg/2ml inj IV PRN (17:10)
[2024-02-18] MEDS ORDERED: magnesium Cl slow-release 64mg tablet PO PRN (17:10)
[2024-02-18] MEDS ORDERED: potassium Cl 40MEQ/1/2NS 520ml 520 ML IV PRN (17:10)
[2024-02-18] MEDS ORDERED: potassium Cl 20 mEq SR tablet PO PRN (17:10)
[2024-02-18] MEDS: furosemide 10 MG/1 ML 10ml inj IV ONE (17:48)
[2024-02-18] MEDS ORDERED: haloperidol lactate 5mg/ml inj IM PRN (17:50)
[2024-02-18] MEDS ORDERED: haloperidol 5mg tablet PO PRN (17:50)
[2024-02-18 18:01] LABS: MAGNESIUM 2.2 MG/DL (1.5-2.4); PHOSPHORUS 3.5 MG/DL (2.3-4.5)
[2024-02-18 18:09] LABS: HEMOGLOBIN A1C 5.9 % (4.5-6.2)
[2024-02-18] MEDS ORDERED: glucagon, human recombinant 1mg kit SUBCUT PRN (18:40)
[2024-02-18] MEDS ORDERED: dextrose 50%-water 50ml dispensing syringe IV PRN (18:40)
[2024-02-18] MEDS ORDERED: DEXTROSE 15 GM of carb/4 tabs (each vial/BOTTLE has 4 tablets) PO PRN ×2 (18:40)
[2024-02-18] MEDS: K and/or MAG REPLACEMENT MC SCH (19:45)
[2024-02-18] MEDS: docusate sod 100mg capsule PO SCH (19:49)
[2024-02-18] MEDS: carvedilol 6.25mg tablet PO SCH (19:49)
[2024-02-18] MEDS: potassium Cl 20 mEq SR tablet PO PRN (19:49)
[2024-02-18] MEDS: heparin, porcine 5000 units/ml vial SQ SCH (19:50)
[2024-02-18 20:00] VITALS: BP 113/88; PULSE 90; RESP 26; TEMP 97.6; O2SAT 95
[2024-02-18] MEDS: INSULIN LISPRO 100 UNIT/ML INSULN.PEN MULTI-DOSE SQ SCH (21:00)
[2024-02-18 22:00] VITALS: BP 124/90; PULSE 92; RESP 22; TEMP 98.6; O2SAT 98
[2024-02-18] MEDS ORDERED: FURO20TA4 PO (22:56)
[2024-02-18] MEDS ORDERED: CARV3.122 PO (22:56)
[2024-02-18] MEDS ORDERED: PANT40TA54 PO (22:56)
[2024-02-18 22:58] VITALS: RESP 22; O2SAT 96
[2024-02-19] VITALS (8 sets, daily range): BP systolic 111–125; BP diastolic 72–86; PULSE 67–96; RESP 16–28; TEMP 96–98.5; O2SAT 89–100
[2024-02-19 07:16] LABS: INR 1.4 INR; PROTHROMBIN TIME 13.9 SECONDS (9.0-12.0)
[2024-02-19 07:17] LABS: BASOPHILS # (AUTO) 0.1 X10'3 (0-0.2); BASOPHILS % (AUTO) 0.7 % (0-1); EOSINOPHILS # (AUTO) 0.1 X10'3 (0-0.9); EOSINOPHILS % (AUTO) 0.7 % (0-6); HEMATOCRIT 46.3 % (42.0-52.0); HEMOGLOBIN 15.3 g/dl (14.0-17.9); LYMPHOCYTES % (AUTO) 11.4 % (21-51); MEAN CORPUSCULAR HEMOGLOBIN 31.1 PG (27.0-31.0); MEAN CORPUSCULAR HGB CONC 33.1 g/dL (33.0-36.5); MEAN PLATELET VOLUME 9.1 FL (7.4-10.4); MONOCYTES # (AUTO) 0.6 X10'3 (0-0.9); MONOCYTES % (AUTO) 7.2 % (2-12); NEUTROPHILS # (AUTO) 7.1 X10'3 (1.8-7.7); PLATELET COUNT 240 X10'3 (140-440); RED BLOOD COUNT 4.93 X10'6 (4.70-6.10); RED CELL DISTRIBUTION WIDTH 16.8 % (11.5-14.5); WHITE BLOOD COUNT 8.8 X10'3 (4.5-11.0)
[2024-02-19 07:28] LABS: ALANINE AMINOTRANSFERASE 300 U/L (12-78); ALBUMIN 3.2 G/DL (3.4-5.0); ALKALINE PHOSPHATASE 193 IU/L (46-116); AMYLASE 46 U/L (25-115); ANION GAP 10 (8-16); ASPARTATE AMINO TRANSFERASE 254 U/L (10-37); BILIRUBIN,TOTAL 2.7 MG/DL (0.1-1.0); BLOOD UREA NITROGEN 38 MG/DL (7-18); BUN/CREATININE RATIO 16.8 (10.0-20.0); CALCIUM 8.7 MG/DL (8.5-10.1); CHLORIDE 99 MMOL/L (99-107); CREATININE 2.26 MG/DL (0.60-1.10); GLUCOSE 97 MG/DL (70-104); LIPASE 34 U/L (16-77); MAGNESIUM 2.1 MG/DL (1.5-2.4); PHOSPHORUS 4.2 MG/DL (2.3-4.5); POTASSIUM 4.8 MMOL/L (3.5-5.1); SODIUM 133 MMOL/L (135-145); TOTAL CARBON DIOXIDE 24.5 MMOL/L (24-32); TOTAL PROTEIN 6.3 G/DL (6.4-8.2); eCRCL 38 ML/MIN; eGFR 29 ML/MIN
[2024-02-19] MEDS: EMPAGLIFLOZIN 10 MG TABLET PO SCH (08:00)
[2024-02-19] MEDS: thiamine 100mg tablet PO SCH (11:23)
[2024-02-19] MEDS: folic acid 1mg tablet PO SCH (11:23)
[2024-02-19] MEDS: aspirin 81mg, enteric-coated 1 TAB TABLET.DR PO SCH (11:24)
[2024-02-19] MEDS: furosemide 10 MG/1 ML 10ml inj IV SCH (11:26)
[2024-02-19] MEDS: ipratropium 0.5 MG/2.5ML nebule IH PRN (15:56)
[2024-02-19 16:15] LABS: URINE AMPHETAMINE SCREEN POSITIVE (Neg); URINE BARBITUATE SCREEN NEGATIVE (Neg); URINE BENZODIAZEPINES SCREEN NEGATIVE (Neg); URINE CANNABINOID SCREEN NEGATIVE (Neg); URINE COCAINE SCREEN NEGATIVE (Neg); URINE METHADONE SCREEN NEGATIVE (Neg); URINE OPIATE SCREEN NEGATIVE (Neg); URINE PHENCYCLIDINE SCREEN NEGATIVE (Neg)
[2024-02-19] MEDS: LORazepam 2 mg/ml vial IV PRN (17:40)
[2024-02-19] MEDS: dextrose 50%-water 50ml dispensing syringe IV PRN (22:03)
[2024-02-19] MEDS: guaiFENesin 200 MG/10 ML oral syrup UD cup PO PRN (22:14)
[2024-02-20] VITALS (16 sets, daily range): BP systolic 84–135; BP diastolic 58–84; PULSE 67–99; RESP 12–34; TEMP 96.7–98.4; O2SAT 88–98
[2024-02-20 05:56] LABS: BASOPHILS % (AUTO) 0.6 % (0-1); EOSINOPHILS % (AUTO) 0.7 % (0-6); HEMATOCRIT 44.5 % (42.0-52.0); HEMOGLOBIN 14.5 g/dl (14.0-17.9); LYMPHOCYTES # (AUTO) 1.3 X10'3 (1.1-4.8); LYMPHOCYTES % (AUTO) 17.7 % (21-51); MEAN CORPUSCULAR HEMOGLOBIN 30.5 PG (27.0-31.0); MEAN CORPUSCULAR HGB CONC 32.6 g/dL (33.0-36.5); MEAN CORPUSCULAR VOLUME 93.3 FL (78-98); MEAN PLATELET VOLUME 9.2 FL (7.4-10.4); MONOCYTES # (AUTO) 0.6 X10'3 (0-0.9); MONOCYTES % (AUTO) 7.8 % (2-12); NEUTROPHILS # (AUTO) 5.4 X10'3 (1.8-7.7); NEUTROPHILS % (AUTO) 73.2 % (42-75); PLATELET COUNT 253 X10'3 (140-440); RED BLOOD COUNT 4.77 X10'6 (4.70-6.10); RED CELL DISTRIBUTION WIDTH 16.8 % (11.5-14.5); WHITE BLOOD COUNT 7.3 X10'3 (4.5-11.0)
[2024-02-20 06:03] LABS: INR 1.4 INR; PROTHROMBIN TIME 14.5 SECONDS (9.0-12.0)
[2024-02-20 06:14] LABS: ALANINE AMINOTRANSFERASE 291 U/L (12-78); ALBUMIN 2.6 G/DL (3.4-5.0); ALKALINE PHOSPHATASE 150 IU/L (46-116); AMYLASE 35 U/L (25-115); ANION GAP 11 (8-16); ASPARTATE AMINO TRANSFERASE 196 U/L (10-37); BILIRUBIN,TOTAL 2.1 MG/DL (0.1-1.0); BLOOD UREA NITROGEN 44 MG/DL (7-18); BUN/CREATININE RATIO 18.8 (10.0-20.0); CALCIUM 8.3 MG/DL (8.5-10.1); CHLORIDE 101 MMOL/L (99-107); CREATININE 2.34 MG/DL (0.60-1.10); GLUCOSE 155 MG/DL (70-104); LIPASE 24 U/L (16-77); MAGNESIUM 2.1 MG/DL (1.5-2.4); PHOSPHORUS 4.1 MG/DL (2.3-4.5); POTASSIUM 3.9 MMOL/L (3.5-5.1); SODIUM 134 MMOL/L (135-145); TOTAL PROTEIN 5.3 G/DL (6.4-8.2); eCRCL 37 ML/MIN; eGFR 28 ML/MIN
[2024-02-20] MEDS: LORazepam 1 MG tablet PO PRN (11:30)
[2024-02-20] MEDS: ipratropium/albuterol 3ml nebule NEB SCH (14:03)
[2024-02-21] VITALS (22 sets, daily range): BP systolic 105–114; BP diastolic 71–78; PULSE 72–97; RESP 16–34; TEMP 97.3–97.5; O2SAT 90–100
[2024-02-21 02:34] LABS: ABG BASE EXCESS -4.8 mmol/L (-2.0-3.0); ABG HCO3 17.4 mmol/L (21.0-28.0); ABG OXYGEN SATURATION 90.7 % (94.0-98.0); ABG PCO2 (T) 25.2 mmHg (35.0-48.0); ABG PH (T) 7.453 (7.350-7.450); ABG PO2 (T) 61.5 mmHg (83.0-108.0); ALLEN'S TEST POSITIVE; FCOHb 0.5 % (0.5-1.5); FHHb 9.2 % (0.0-5.0); FLOW 4 L/min; FMetHb 0.2 % (0.0-1.5); FO2Hb 90.1 % (94.0-98.0); MODE NASAL CANNULA; PATIENT TEMPERATURE 36.3; TOTAL HEMOGLOBIN 15.4 G/dl (13.5-17.5)
[2024-02-21] MEDS: HYDROmorphone 1 mg/ml syringe IV ONE (03:23)
[2024-02-21] MEDS: furosemide 20 MG/2 ML vial IV ONE ×2 (03:24→04:56)
[2024-02-21 06:16] LABS: BASOPHILS # (AUTO) 0.1 X10'3 (0-0.2); BASOPHILS % (AUTO) 1.4 % (0-1); EOSINOPHILS % (AUTO) 0.6 % (0-6); HEMATOCRIT 44.5 % (42.0-52.0); HEMOGLOBIN 14.4 g/dl (14.0-17.9); MEAN CORPUSCULAR HEMOGLOBIN 30.2 PG (27.0-31.0); MEAN CORPUSCULAR HGB CONC 32.5 g/dL (33.0-36.5); MEAN PLATELET VOLUME 9.2 FL (7.4-10.4); MONOCYTES # (AUTO) 0.6 X10'3 (0-0.9); MONOCYTES % (AUTO) 8.4 % (2-12); NEUTROPHILS # (AUTO) 5.4 X10'3 (1.8-7.7); NEUTROPHILS % (AUTO) 75.6 % (42-75); PLATELET COUNT 245 X10'3 (140-440); RED BLOOD COUNT 4.78 X10'6 (4.70-6.10); RED CELL DISTRIBUTION WIDTH 16.5 % (11.5-14.5); WHITE BLOOD COUNT 7.1 X10'3 (4.5-11.0)
[2024-02-21 06:19] LABS: INR 1.4 INR; PROTHROMBIN TIME 14.4 SECONDS (9.0-12.0)
[2024-02-21 06:45] LABS: ALANINE AMINOTRANSFERASE 327 U/L (12-78); ALBUMIN 3.2 G/DL (3.4-5.0); ALBUMIN/GLOBULIN RATIO 1.1 (1.1-1.5); ALKALINE PHOSPHATASE 238 IU/L (46-116); AMYLASE 48 U/L (25-115); ANION GAP 13 (8-16); ASPARTATE AMINO TRANSFERASE 183 U/L (10-37); BILIRUBIN,TOTAL 2.1 MG/DL (0.1-1.0); BLOOD UREA NITROGEN 54 MG/DL (7-18); BUN/CREATININE RATIO 22.4 (10.0-20.0); CALCIUM 8.6 MG/DL (8.5-10.1); CHLORIDE 100 MMOL/L (99-107); CREATININE 2.41 MG/DL (0.60-1.10); GLUCOSE 94 MG/DL (70-104); LIPASE 24 U/L (16-77); MAGNESIUM 2.3 MG/DL (1.5-2.4); PHOSPHORUS 4.7 MG/DL (2.3-4.5); POTASSIUM 4.2 MMOL/L (3.5-5.1); SODIUM 135 MMOL/L (135-145); TOTAL CARBON DIOXIDE 22.1 MMOL/L (24-32); TOTAL PROTEIN 6.2 G/DL (6.4-8.2); eCRCL 35 ML/MIN; eGFR 27 ML/MIN
[2024-02-21] MEDS: CefTRIAXone/D5W-Rocephin 1gm 50 ML IV SCH (14:51)
[2024-02-21] MEDS: temazepam 15mg capsule PO ONE (22:52)
[2024-02-22] VITALS (21 sets, daily range): BP systolic 102–118; BP diastolic 70–80; PULSE 73–100; RESP 15–24; TEMP 97.2–98.1; O2SAT 87–98
[2024-02-22 07:11] LABS: BASOPHILS # (AUTO) 0.1 X10'3 (0-0.2); BASOPHILS % (AUTO) 1.8 % (0-1); EOSINOPHILS # (AUTO) 0.1 X10'3 (0-0.9); EOSINOPHILS % (AUTO) 1.2 % (0-6); HEMATOCRIT 42.4 % (42.0-52.0); HEMOGLOBIN 13.9 g/dl (14.0-17.9); LYMPHOCYTES # (AUTO) 0.8 X10'3 (1.1-4.8); LYMPHOCYTES % (AUTO) 11.7 % (21-51); MEAN CORPUSCULAR HEMOGLOBIN 30.3 PG (27.0-31.0); MEAN CORPUSCULAR HGB CONC 32.7 g/dL (33.0-36.5); MEAN CORPUSCULAR VOLUME 92.6 FL (78-98); MEAN PLATELET VOLUME 8.9 FL (7.4-10.4); MONOCYTES # (AUTO) 0.5 X10'3 (0-0.9); MONOCYTES % (AUTO) 6.9 % (2-12); NEUTROPHILS # (AUTO) 5.4 X10'3 (1.8-7.7); NEUTROPHILS % (AUTO) 78.4 % (42-75); PLATELET COUNT 224 X10'3 (140-440); RED BLOOD COUNT 4.58 X10'6 (4.70-6.10); RED CELL DISTRIBUTION WIDTH 16.9 % (11.5-14.5); WHITE BLOOD COUNT 6.8 X10'3 (4.5-11.0)
[2024-02-22 07:16] LABS: INR 1.3 INR
[2024-02-22 07:33] LABS: ALANINE AMINOTRANSFERASE 234 U/L (12-78); ALKALINE PHOSPHATASE 203 IU/L (46-116); AMYLASE 62 U/L (25-115); ANION GAP 10 (8-16); ASPARTATE AMINO TRANSFERASE 96 U/L (10-37); BILIRUBIN,TOTAL 1.5 MG/DL (0.1-1.0); BLOOD UREA NITROGEN 50 MG/DL (7-18); BUN/CREATININE RATIO 20.2 (10.0-20.0); CALCIUM 8.3 MG/DL (8.5-10.1); CHLORIDE 98 MMOL/L (99-107); CREATININE 2.48 MG/DL (0.60-1.10); GLUCOSE 108 MG/DL (70-104); LIPASE 49 U/L (16-77); MAGNESIUM 2.2 MG/DL (1.5-2.4); PHOSPHORUS 3.6 MG/DL (2.3-4.5); POTASSIUM 3.9 MMOL/L (3.5-5.1); SODIUM 133 MMOL/L (135-145); TOTAL CARBON DIOXIDE 25.2 MMOL/L (24-32); TOTAL PROTEIN 5.9 G/DL (6.4-8.2); eCRCL 34 ML/MIN; eGFR 26 ML/MIN
[2024-02-22] MEDS: acetaminophen 325mg tablet PO PRN (08:27)
[2024-02-22] MEDS: LORazepam 1 MG tablet PO PRN ×2 (11:29→21:42)
[2024-02-22] MEDS: lisinopril 5mg tablet PO SCH (11:39)
[2024-02-23] VITALS (20 sets, daily range): BP systolic 107–130; BP diastolic 70–98; PULSE 48–93; RESP 12–26; TEMP 97.4–98; O2SAT 80–100
[2024-02-23 07:35] LABS: INR 1.2 INR; PROTHROMBIN TIME 12.3 SECONDS (9.0-12.0)
[2024-02-23 07:38] LABS: BASOPHILS # (AUTO) 0.1 X10'3 (0-0.2); BASOPHILS % (AUTO) 1.4 % (0-1); EOSINOPHILS # (AUTO) 0.1 X10'3 (0-0.9); EOSINOPHILS % (AUTO) 1.6 % (0-6); HEMATOCRIT 45.6 % (42.0-52.0); HEMOGLOBIN 14.8 g/dl (14.0-17.9); LYMPHOCYTES # (AUTO) 0.8 X10'3 (1.1-4.8); LYMPHOCYTES % (AUTO) 11.1 % (21-51); MEAN CORPUSCULAR HEMOGLOBIN 30.4 PG (27.0-31.0); MEAN CORPUSCULAR HGB CONC 32.4 g/dL (33.0-36.5); MEAN CORPUSCULAR VOLUME 93.7 FL (78-98); MEAN PLATELET VOLUME 9.2 FL (7.4-10.4); MONOCYTES # (AUTO) 0.5 X10'3 (0-0.9); MONOCYTES % (AUTO) 7.2 % (2-12); NEUTROPHILS % (AUTO) 78.7 % (42-75); PLATELET COUNT 251 X10'3 (140-440); RED BLOOD COUNT 4.86 X10'6 (4.70-6.10); RED CELL DISTRIBUTION WIDTH 17.1 % (11.5-14.5); WHITE BLOOD COUNT 7.7 X10'3 (4.5-11.0)
[2024-02-23 07:51] LABS: ALANINE AMINOTRANSFERASE 211 U/L (12-78); ALBUMIN 3.3 G/DL (3.4-5.0); ALKALINE PHOSPHATASE 241 IU/L (46-116); AMYLASE 74 U/L (25-115); ANION GAP 7 (8-16); ASPARTATE AMINO TRANSFERASE 69 U/L (10-37); BILIRUBIN,TOTAL 1.2 MG/DL (0.1-1.0); BLOOD UREA NITROGEN 50 MG/DL (7-18); BUN/CREATININE RATIO 21.6 (10.0-20.0); CALCIUM 8.8 MG/DL (8.5-10.1); CHLORIDE 98 MMOL/L (99-107); CREATININE 2.32 MG/DL (0.60-1.10); GLUCOSE 109 MG/DL (70-104); LIPASE 59 U/L (16-77); PHOSPHORUS 3.7 MG/DL (2.3-4.5); POTASSIUM 4.3 MMOL/L (3.5-5.1); SODIUM 133 MMOL/L (135-145); TOTAL CARBON DIOXIDE 28.2 MMOL/L (24-32); TOTAL PROTEIN 6.6 G/DL (6.4-8.2); eCRCL 37 ML/MIN; eGFR 29 ML/MIN
[2024-02-23] MEDS: furosemide 20 MG/2 ML vial IV SCH (08:00)
[2024-02-23] MEDS: LORazepam 1 MG tablet PO PRN (10:36)
[2024-02-23] MEDS ORDERED: LORazepam 1 MG tablet PO PRN (10:50)
[2024-02-23] MEDS ORDERED: LORazepam 0.5 MG tablet PO PRN (10:56)
[2024-02-23] MEDS: LORazepam 2 mg/ml vial IV PRN (13:40)
[2024-02-24] VITALS (22 sets, daily range): BP systolic 101–120; BP diastolic 72–97; PULSE 74–93; RESP 12–23; TEMP 97.4–98.4; O2SAT 93–100
[2024-02-24 08:25] LABS: ALANINE AMINOTRANSFERASE 142 U/L (12-78); ALBUMIN 2.8 G/DL (3.4-5.0); ALKALINE PHOSPHATASE 171 IU/L (46-116); ANION GAP 11 (8-16); ASPARTATE AMINO TRANSFERASE 49 U/L (10-37); BILIRUBIN,TOTAL 1.8 MG/DL (0.1-1.0); BLOOD UREA NITROGEN 52 MG/DL (7-18); BUN/CREATININE RATIO 22.1 (10.0-20.0); CALCIUM 8.7 MG/DL (8.5-10.1); CHLORIDE 101 MMOL/L (99-107); CREATININE 2.35 MG/DL (0.60-1.10); GLUCOSE 81 MG/DL (70-104); POTASSIUM 4.2 MMOL/L (3.5-5.1); SODIUM 135 MMOL/L (135-145); TOTAL CARBON DIOXIDE 23.5 MMOL/L (24-32); TOTAL PROTEIN 5.6 G/DL (6.4-8.2); eCRCL 36 ML/MIN; eGFR 28 ML/MIN
[2024-02-24] MEDS ORDERED: LORazepam 2 mg/ml vial IV PRN (11:50)
[2024-02-24 12:32] LABS: ABG BASE EXCESS -1.2 mmol/L (-2.0-3.0); ABG HCO3 21.6 mmol/L (21.0-28.0); ABG OXYGEN SATURATION 99.3 % (94.0-98.0); ABG PCO2 (T) 31.3 mmHg (35.0-48.0); ABG PH (T) 7.457 (7.350-7.450); ABG PO2 (T) 137.5 mmHg (83.0-108.0); FCOHb 1.2 % (0.5-1.5); FHHb 0.7 % (0.0-5.0); FO2Hb 98.1 % (94.0-98.0); MODE MASK - BIPAP; RESPIRATORY RATE 14 b/min; TOTAL HEMOGLOBIN 15.5 G/dl (13.5-17.5)
[2024-02-24] MEDS: LidoCAINE 2% Topical Jelly 11mL syringe (UROJET) TOP ONE (13:40)
[2024-02-24] MEDS: furosemide 20 MG/2 ML vial IV SCH (14:08)
[2024-02-24] MEDS: hydrALAZINE 25 MG tablet PO SCH (20:00)
[2024-02-24] MEDS ORDERED: hydrALAZINE 25 MG tablet PO SCH (20:00)
[2024-02-24] MEDS: haloperidol lactate 5mg/ml inj IM ONE (20:11)
[2024-02-24] MEDS: haloperidol lactate 5mg/ml inj IM PRN (23:37)
[2024-02-25] VITALS (21 sets, daily range): BP systolic 87–108; BP diastolic 45–71; PULSE 75–92; RESP 13–22; TEMP 96.9–98.3; O2SAT 94–99
[2024-02-25 08:22] LABS: BASOPHILS # (AUTO) 0.1 X10'3 (0-0.2); EOSINOPHILS # (AUTO) 0.1 X10'3 (0-0.9); EOSINOPHILS % (AUTO) 0.9 % (0-6); HEMATOCRIT 42.9 % (42.0-52.0); HEMOGLOBIN 14.1 g/dl (14.0-17.9); LYMPHOCYTES # (AUTO) 0.7 X10'3 (1.1-4.8); LYMPHOCYTES % (AUTO) 9.4 % (21-51); MEAN CORPUSCULAR HEMOGLOBIN 30.4 PG (27.0-31.0); MEAN CORPUSCULAR HGB CONC 32.8 g/dL (33.0-36.5); MEAN CORPUSCULAR VOLUME 92.8 FL (78-98); MEAN PLATELET VOLUME 8.8 FL (7.4-10.4); MONOCYTES # (AUTO) 0.7 X10'3 (0-0.9); MONOCYTES % (AUTO) 9.1 % (2-12); NEUTROPHILS % (AUTO) 79.6 % (42-75); PLATELET COUNT 252 X10'3 (140-440); RED BLOOD COUNT 4.63 X10'6 (4.70-6.10); RED CELL DISTRIBUTION WIDTH 17.2 % (11.5-14.5); WHITE BLOOD COUNT 7.6 X10'3 (4.5-11.0)
[2024-02-25 08:39] LABS: ALANINE AMINOTRANSFERASE 123 U/L (12-78); ALBUMIN 2.8 G/DL (3.4-5.0); ALKALINE PHOSPHATASE 151 IU/L (46-116); ANION GAP 8 (8-16); ASPARTATE AMINO TRANSFERASE 61 U/L (10-37); BILIRUBIN,TOTAL 1.3 MG/DL (0.1-1.0); BLOOD UREA NITROGEN 46 MG/DL (7-18); BUN/CREATININE RATIO 20.1 (10.0-20.0); CALCIUM 8.7 MG/DL (8.5-10.1); CHLORIDE 102 MMOL/L (99-107); CREATININE 2.29 MG/DL (0.60-1.10); GLUCOSE 92 MG/DL (70-104); POTASSIUM 3.9 MMOL/L (3.5-5.1); SODIUM 139 MMOL/L (135-145); TOTAL CARBON DIOXIDE 29.3 MMOL/L (24-32); TOTAL PROTEIN 5.7 G/DL (6.4-8.2); eCRCL 37 ML/MIN; eGFR 29 ML/MIN
[2024-02-26] VITALS (21 sets, daily range): BP systolic 90–105; BP diastolic 61–77; PULSE 75–87; RESP 13–19; TEMP 97.2–98.6; O2SAT 93–98
[2024-02-26 06:16] LABS: BASOPHILS # (AUTO) 0.1 X10'3 (0-0.2); BASOPHILS % (AUTO) 1.4 % (0-1); EOSINOPHILS # (AUTO) 0.1 X10'3 (0-0.9); EOSINOPHILS % (AUTO) 1.7 % (0-6); HEMATOCRIT 43.7 % (42.0-52.0); HEMOGLOBIN 14.4 g/dl (14.0-17.9); LYMPHOCYTES # (AUTO) 0.8 X10'3 (1.1-4.8); LYMPHOCYTES % (AUTO) 11.3 % (21-51); MEAN CORPUSCULAR HEMOGLOBIN 30.4 PG (27.0-31.0); MEAN CORPUSCULAR HGB CONC 32.8 g/dL (33.0-36.5); MEAN CORPUSCULAR VOLUME 92.5 FL (78-98); MEAN PLATELET VOLUME 8.4 FL (7.4-10.4); MONOCYTES # (AUTO) 0.7 X10'3 (0-0.9); MONOCYTES % (AUTO) 9.2 % (2-12); NEUTROPHILS # (AUTO) 5.7 X10'3 (1.8-7.7); NEUTROPHILS % (AUTO) 76.4 % (42-75); PLATELET COUNT 246 X10'3 (140-440); RED BLOOD COUNT 4.73 X10'6 (4.70-6.10); RED CELL DISTRIBUTION WIDTH 16.7 % (11.5-14.5); WHITE BLOOD COUNT 7.4 X10'3 (4.5-11.0)
[2024-02-26 06:40] LABS: ALANINE AMINOTRANSFERASE 100 U/L (12-78); ALBUMIN 2.9 G/DL (3.4-5.0); ALBUMIN/GLOBULIN RATIO 0.9 (1.1-1.5); ALKALINE PHOSPHATASE 142 IU/L (46-116); ANION GAP 6 (8-16); ASPARTATE AMINO TRANSFERASE 64 U/L (10-37); BLOOD UREA NITROGEN 40 MG/DL (7-18); BUN/CREATININE RATIO 19.9 (10.0-20.0); CALCIUM 8.5 MG/DL (8.5-10.1); CHLORIDE 100 MMOL/L (99-107); CREATININE 2.01 MG/DL (0.60-1.10); GLUCOSE 98 MG/DL (70-104); POTASSIUM 3.9 MMOL/L (3.5-5.1); SODIUM 135 MMOL/L (135-145); TOTAL CARBON DIOXIDE 29.4 MMOL/L (24-32); eCRCL 43 ML/MIN; eGFR 34 ML/MIN
[2024-02-26] MEDS: furosemide 40mg/4ml inj IV SCH (20:00)
[2024-02-26] MEDS: QUEtiapine 25mg tablet PO SCH (21:28)
[2024-02-27] VITALS (12 sets, daily range): BP systolic 97–107; BP diastolic 54–80; PULSE 77–95; RESP 15–22; TEMP 96.9–98.2; O2SAT 95–98
[2024-02-27] MEDS: LORazepam 0.5 MG tablet PO PRN (02:11)
[2024-02-27 07:27] LABS: BASOPHILS # (AUTO) 0.1 X10'3 (0-0.2); BASOPHILS % (AUTO) 1.3 % (0-1); EOSINOPHILS # (AUTO) 0.1 X10'3 (0-0.9); EOSINOPHILS % (AUTO) 2.1 % (0-6); HEMOGLOBIN 14.1 g/dl (14.0-17.9); LYMPHOCYTES % (AUTO) 16.2 % (21-51); MEAN CORPUSCULAR HEMOGLOBIN 29.9 PG (27.0-31.0); MEAN CORPUSCULAR HGB CONC 32.2 g/dL (33.0-36.5); MEAN PLATELET VOLUME 8.5 FL (7.4-10.4); MONOCYTES # (AUTO) 0.6 X10'3 (0-0.9); NEUTROPHILS # (AUTO) 4.4 X10'3 (1.8-7.7); NEUTROPHILS % (AUTO) 71.4 % (42-75); PLATELET COUNT 248 X10'3 (140-440); RED BLOOD COUNT 4.73 X10'6 (4.70-6.10); RED CELL DISTRIBUTION WIDTH 17.2 % (11.5-14.5); WHITE BLOOD COUNT 6.2 X10'3 (4.5-11.0)
[2024-02-27 07:38] LABS: ALANINE AMINOTRANSFERASE 79 U/L (12-78); ALBUMIN 2.8 G/DL (3.4-5.0); ALBUMIN/GLOBULIN RATIO 0.9 (1.1-1.5); ALKALINE PHOSPHATASE 127 IU/L (46-116); ANION GAP 6 (8-16); ASPARTATE AMINO TRANSFERASE 63 U/L (10-37); BLOOD UREA NITROGEN 30 MG/DL (7-18); BUN/CREATININE RATIO 16.8 (10.0-20.0); CALCIUM 8.6 MG/DL (8.5-10.1); CHLORIDE 101 MMOL/L (99-107); CREATININE 1.79 MG/DL (0.60-1.10); GLUCOSE 94 MG/DL (70-104); POTASSIUM 4.3 MMOL/L (3.5-5.1); SODIUM 137 MMOL/L (135-145); TOTAL CARBON DIOXIDE 30.4 MMOL/L (24-32); TOTAL PROTEIN 5.9 G/DL (6.4-8.2); eCRCL 48 ML/MIN; eGFR 39 ML/MIN
[2024-02-27] MEDS ORDERED: FURO20TA4 PO (13:34)
[2024-02-27] MEDS ORDERED: LISI5TAB22 PO (13:34)
[2024-02-27] MEDS ORDERED: FOLI1TAB27 PO (13:34)
== END 2024-02-27 17:00 | disposition home or self-care (01) | DRG 133 ==
LOC: ER 14:07 → ED HOLD 17:13 → PCU 3S 20:00
PROVIDERS: ADMIT Internal Medicine; ATTEND Internal Medicine
PROC: 5A09357 Assistance with Respiratory Ventilation, Less than 24 Consecutive Hours, Continuous Positive Airway Pressure (ICD-10-PCS; principal; 2024-02-21)
PROC: 5A09357 Assistance with Respiratory Ventilation, Less than 24 Consecutive Hours, Continuous Positive Airway Pressure (ICD-10-PCS; 2024-02-23)
PROC: 5A0935A Assistance with Respiratory Ventilation, Less than 24 Consecutive Hours, High Flow/Velocity Cannula (ICD-10-PCS; 2024-02-24)
PROC: 5A09357 Assistance with Respiratory Ventilation, Less than 24 Consecutive Hours, Continuous Positive Airway Pressure (ICD-10-PCS; 2024-02-24)
PROC: 5A0935A Assistance with Respiratory Ventilation, Less than 24 Consecutive Hours, High Flow/Velocity Cannula (ICD-10-PCS; 2024-02-25)
DX: J96.21 Acute and chronic respiratory failure with hypoxia (principal); N17.0 Acute kidney failure with tubular necrosis; I50.23 Acute on chronic systolic (congestive) heart failure; G93.41 Metabolic encephalopathy; I13.0 Hypertensive heart and chronic kidney disease with heart failure and stage 1 through stage 4 chronic kidney disease, or unspecified chronic kidney disease; E11.22 Type 2 diabetes mellitus with diabetic chronic kidney disease; J44.9 Chronic obstructive pulmonary disease, unspecified; N18.9 Chronic kidney disease, unspecified; I49.3 Ventricular premature depolarization; F41.9 Anxiety disorder, unspecified; F15.90 Other stimulant use, unspecified, uncomplicated; K76.0 Fatty (change of) liver, not elsewhere classified; E87.3 Alkalosis; I42.7 Cardiomyopathy due to drug and external agent; K76.1 Chronic passive congestion of liver; F10.939 Alcohol use, unspecified with withdrawal, unspecified; T43.655A Adverse effect of methamphetamines, initial encounter; K70.10 Alcoholic hepatitis without ascites; Y90.9 Presence of alcohol in blood, level not specified; R74.01 Elevation of levels of liver transaminase levels; Z87.01 Personal history of pneumonia (recurrent); Z87.891 Personal history of nicotine dependence; Y92.89 Other specified places as the place of occurrence of the external cause; Z99.81 Dependence on supplemental oxygen; Z71.51 Drug abuse counseling and surveillance of drug abuser; Z71.41 Alcohol abuse counseling and surveillance of alcoholic; Z79.82 Long term (current) use of aspirin; Z79.899 Other long term (current) drug therapy
CPT/HCPCS: 36415; 36600; 71045; 76700; 80053; 80305; 82150; 82803; 82948; 83036; 83690; 83735; 83880; 84100; 84145; 84484; 85018; 85025; 85610; 93005; 93306; 94640; 94660; 94760; 94799; 97116; 97161; 97530; 99285; A4314; A4615; A4620; A5200; A6590; G0378; J0696; J1171; J1630; J1644; J1815; J1940; J2060; J3490; J7040

== ENCOUNTER 2024-05-12 10:46 | Inpatient (IN) | payer MEDICAID ==
[~2024-05-12] VITALS: Ht 185.4 cm; Wt 84.9 kg
[~2024-05-12 10:46] MED LIST changes: +CARV3.122 PO; +FURO20TA4 PO; +LISI5TAB22 PO; +PANT40TA54 PO
[2024-05-12 11:37] LABS: BASOPHILS # (AUTO) 0.1 X10'3 (0-0.2); BASOPHILS % (AUTO) 1.5 % (0-1); EOSINOPHILS % (AUTO) 0.2 % (0-6); HEMATOCRIT 42.7 % (42.0-52.0); HEMOGLOBIN 13.4 g/dl (14.0-17.9); LYMPHOCYTES # (AUTO) 0.7 X10'3 (1.1-4.8); LYMPHOCYTES % (AUTO) 11.1 % (21-51); MEAN CORPUSCULAR HEMOGLOBIN 28.8 PG (27.0-31.0); MEAN CORPUSCULAR HGB CONC 31.5 g/dL (33.0-36.5); MEAN CORPUSCULAR VOLUME 91.5 FL (78-98); MEAN PLATELET VOLUME 9.5 FL (7.4-10.4); MONOCYTES # (AUTO) 0.5 X10'3 (0-0.9); MONOCYTES % (AUTO) 7.6 % (2-12); NEUTROPHILS # (AUTO) 5.1 X10'3 (1.8-7.7); NEUTROPHILS % (AUTO) 79.6 % (42-75); PLATELET COUNT 160 X10'3 (140-440); RED BLOOD COUNT 4.67 X10'6 (4.70-6.10); RED CELL DISTRIBUTION WIDTH 21.3 % (11.5-14.5); WHITE BLOOD COUNT 6.4 X10'3 (4.5-11.0)
[2024-05-12 12:36] LABS: ANISOCYTOSIS 3+; ELLIPTOCYTES 1+; PLATELET ESTIMATE NORMAL; POLYCHROMASIA 1+; SCHISTOCYTES FEW; TARGET CELLS FEW
[2024-05-12 13:13] LABS: ALANINE AMINOTRANSFERASE 219 U/L (12-78); ALBUMIN/GLOBULIN RATIO 0.9 (1.1-1.5); ALKALINE PHOSPHATASE 273 IU/L (46-116); ASPARTATE AMINO TRANSFERASE 198 U/L (10-37); BILIRUBIN,TOTAL 1.8 MG/DL (0.1-1.0); CALCIUM 8.5 MG/DL (8.5-10.1); TOTAL CARBON DIOXIDE 27.9 MMOL/L (24-32); TOTAL PROTEIN 6.2 G/DL (6.4-8.2)
[2024-05-12 13:22] LABS: PRO BRAIN NATRIURETIC PEPTIDE 29374 PG/ML (0-125)
[2024-05-12 13:34] LABS: ANION GAP 11 (8-16); BLOOD UREA NITROGEN 36 MG/DL (7-18); BUN/CREATININE RATIO 17.2 (10.0-20.0); CHLORIDE 106 MMOL/L (99-107); CREATININE 2.09 MG/DL (0.60-1.10); GLUCOSE 100 MG/DL (70-104); POTASSIUM 4.2 MMOL/L (3.5-5.1); SODIUM 145 MMOL/L (135-145); eCRCL 41 ML/MIN; eGFR 32 ML/MIN
[2024-05-12] MEDS: furosemide 10 MG/1 ML 10ml inj IV ONE (13:35)
[2024-05-12 14:57] LABS: ABG BASE EXCESS -1.4 mmol/L (-2.0-3.0); ABG HCO3 21.6 mmol/L (21.0-28.0); ABG OXYGEN SATURATION 97.8 % (94.0-98.0); ABG PCO2 (T) 31.6 mmHg (35.0-48.0); ABG PH (T) 7.452 (7.350-7.450); ABG PO2 (T) 97.8 mmHg (83.0-108.0); ALLEN'S TEST POSITIVE; FCOHb 0.7 % (0.5-1.5); FHHb 2.2 % (0.0-5.0); FLOW 2 L/min; FO2Hb 97.1 % (94.0-98.0); MODE NASAL CANNULA; PATIENT TEMPERATURE 36.8; TOTAL HEMOGLOBIN 14.4 G/dl (13.5-17.5)
[2024-05-12] MEDS: normal saline 1000ml 1,000 ML IV ONE (15:01)
[2024-05-12] MEDS ORDERED: magnesium Cl slow-release 64mg tablet PO PRN (16:25)
[2024-05-12] MEDS ORDERED: mag hydrox/Alum hydrox/simeth 30ml oral suspension PO PRN (16:25)
[2024-05-12] MEDS ORDERED: potassium Cl 40MEQ/1/2NS 520ml 520 ML IV PRN (16:25)
[2024-05-12] MEDS ORDERED: potassium Cl 20 mEq SR tablet PO PRN ×2 (16:25)
[2024-05-12] MEDS ORDERED: magnesium hydroxide 30ml (MOM) UD suspension PO PRN (16:25)
[2024-05-12] MEDS ORDERED: magnesium sulf-water 2g/50mL 50 ML IV PRN (16:25)
[2024-05-12] MEDS ORDERED: HYDROcodone/acetaminophen 5mg/325mg tablet PO PRN (16:25)
[2024-05-12] MEDS ORDERED: ondansetron/PF 4mg/2ml inj IV PRN (16:25)
[2024-05-12] MEDS ORDERED: magnesium sulf-water 4G/100mL 100 ML IV PRN (16:25)
[2024-05-12] MEDS: docusate sod 100mg capsule PO SCH (20:00)
[2024-05-12] MEDS: K and/or MAG REPLACEMENT MC SCH (20:00)
[2024-05-12 23:00] VITALS: BP 125/87; PULSE 98; RESP 28; TEMP 97.3; O2SAT 97
[2024-05-12] MEDS: carvedilol 6.25mg tablet PO SCH (23:55)
[2024-05-12] MEDS: furosemide 10 MG/1 ML 10ml inj IV SCH (23:56)
[2024-05-13] VITALS (8 sets, daily range): BP systolic 101–143; BP diastolic 61–94; PULSE 85–101; RESP 20–35; TEMP 96.9–98.5; O2SAT 90–100
[2024-05-13 07:21] LABS: BASOPHILS # (AUTO) 0.1 X10'3 (0-0.2); BASOPHILS % (AUTO) 1.1 % (0-1); EOSINOPHILS % (AUTO) 0.1 % (0-6); HEMATOCRIT 43.8 % (42.0-52.0); HEMOGLOBIN 14.2 g/dl (14.0-17.9); LYMPHOCYTES # (AUTO) 0.6 X10'3 (1.1-4.8); LYMPHOCYTES % (AUTO) 8.5 % (21-51); MEAN CORPUSCULAR HEMOGLOBIN 29.6 PG (27.0-31.0); MEAN CORPUSCULAR HGB CONC 32.4 g/dL (33.0-36.5); MEAN CORPUSCULAR VOLUME 91.3 FL (78-98); MEAN PLATELET VOLUME 9.6 FL (7.4-10.4); MONOCYTES # (AUTO) 0.5 X10'3 (0-0.9); MONOCYTES % (AUTO) 6.7 % (2-12); NEUTROPHILS # (AUTO) 6.3 X10'3 (1.8-7.7); NEUTROPHILS % (AUTO) 83.6 % (42-75); PLATELET COUNT 176 X10'3 (140-440); RED CELL DISTRIBUTION WIDTH 20.5 % (11.5-14.5); WHITE BLOOD COUNT 7.5 X10'3 (4.5-11.0)
[2024-05-13] MEDS: clopidogrel 75mg tablet PO SCH (07:40)
[2024-05-13] MEDS: atorvastatin 20mg tablet PO SCH (07:40)
[2024-05-13 07:42] LABS: ALANINE AMINOTRANSFERASE 216 U/L (12-78); ALBUMIN 3.1 G/DL (3.4-5.0); ALBUMIN/GLOBULIN RATIO 0.9 (1.1-1.5); ALKALINE PHOSPHATASE 281 IU/L (46-116); ANION GAP 10 (8-16); ASPARTATE AMINO TRANSFERASE 180 U/L (10-37); BILIRUBIN,TOTAL 2.1 MG/DL (0.1-1.0); BLOOD UREA NITROGEN 36 MG/DL (7-18); BUN/CREATININE RATIO 19.1 (10.0-20.0); CALCIUM 8.5 MG/DL (8.5-10.1); CHLORIDE 107 MMOL/L (99-107); CREATININE 1.88 MG/DL (0.60-1.10); GLUCOSE 98 MG/DL (70-104); MAGNESIUM 2.2 MG/DL (1.5-2.4); SODIUM 145 MMOL/L (135-145); TOTAL CARBON DIOXIDE 27.9 MMOL/L (24-32); TOTAL PROTEIN 6.4 G/DL (6.4-8.2); eCRCL 45 ML/MIN; eGFR 36 ML/MIN
[2024-05-13] MEDS: aspirin 81mg, enteric-coated 1 TAB TABLET.DR PO ONE (08:53)
[2024-05-13 15:33] LABS: LIPASE 65 U/L (16-77); PRO BRAIN NATRIURETIC PEPTIDE 29306 PG/ML (0-125)
[2024-05-13] MEDS: furosemide 10 MG/1 ML 10ml inj IV SCH (15:39)
[2024-05-13] MEDS: heparin, porcine 5000 units/ml vial SQ SCH (20:44)
[2024-05-14] VITALS (11 sets, daily range): BP systolic 100–153; BP diastolic 63–90; PULSE 85–107; RESP 18–35; TEMP 96.2–98.1; O2SAT 90–98
[2024-05-14 06:57] LABS: BASOPHILS # (AUTO) 0.1 X10'3 (0-0.2); EOSINOPHILS % (AUTO) 0.2 % (0-6); HEMATOCRIT 43.8 % (42.0-52.0); LYMPHOCYTES # (AUTO) 0.7 X10'3 (1.1-4.8); LYMPHOCYTES % (AUTO) 7.5 % (21-51); MEAN CORPUSCULAR HEMOGLOBIN 29.3 PG (27.0-31.0); MEAN CORPUSCULAR VOLUME 91.6 FL (78-98); MONOCYTES # (AUTO) 0.6 X10'3 (0-0.9); MONOCYTES % (AUTO) 6.6 % (2-12); NEUTROPHILS # (AUTO) 7.4 X10'3 (1.8-7.7); NEUTROPHILS % (AUTO) 84.7 % (42-75); PLATELET COUNT 174 X10'3 (140-440); RED BLOOD COUNT 4.79 X10'6 (4.70-6.10); RED CELL DISTRIBUTION WIDTH 20.7 % (11.5-14.5); WHITE BLOOD COUNT 8.7 X10'3 (4.5-11.0)
[2024-05-14 07:34] LABS: ALANINE AMINOTRANSFERASE 173 U/L (12-78); ALBUMIN 2.9 G/DL (3.4-5.0); ALKALINE PHOSPHATASE 227 IU/L (46-116); ANION GAP 10 (8-16); ASPARTATE AMINO TRANSFERASE 134 U/L (10-37); BILIRUBIN,TOTAL 2.7 MG/DL (0.1-1.0); BLOOD UREA NITROGEN 35 MG/DL (7-18); BUN/CREATININE RATIO 20.8 (10.0-20.0); CALCIUM 8.4 MG/DL (8.5-10.1); CHLORIDE 105 MMOL/L (99-107); CHOLESTEROL 84 MG/DL (0-200); CREATININE 1.68 MG/DL (0.60-1.10); GLUCOSE 91 MG/DL (70-104); HDL CHOLESTEROL 41 MG/DL (35-60); LDL CHOLESTEROL 44 MG/DL (50-100); MAGNESIUM 2.4 MG/DL (1.5-2.4); PRO BRAIN NATRIURETIC PEPTIDE 28477 PG/ML (0-125); SODIUM 144 MMOL/L (135-145); TOTAL CARBON DIOXIDE 29.2 MMOL/L (24-32); TOTAL PROTEIN 5.9 G/DL (6.4-8.2); eCRCL 51 ML/MIN; eGFR 41 ML/MIN
[2024-05-14 07:46] LABS: ANISOCYTOSIS 3+; PLATELET ESTIMATE NORMAL; POLYCHROMASIA 1+
[2024-05-14 07:47] LABS: ELLIPTOCYTES 1+; SCHISTOCYTES FEW; TARGET CELLS 1+
[2024-05-14 08:03] LABS: TRIGLYCERIDES 65 MG/DL (20-135)
[2024-05-14 08:14] LABS: POTASSIUM 3.8 MMOL/L (3.5-5.1)
[2024-05-14] MEDS: furosemide 40mg/4ml inj IV ONE (08:20)
[2024-05-14] MEDS: spironolactone 50 MG tablet PO SCH (08:30)
[2024-05-14] MEDS ORDERED: IOHEXOL 12MG/ML oral solution 500 ML BOTTLE PO ONE (08:30)
[2024-05-14] MEDS: aspirin 81mg, enteric-coated 1 TAB TABLET.DR PO SCH (09:53)
[2024-05-14] MEDS: furosemide 10 MG/1 ML 10ml inj IV SCH (11:46)
[2024-05-14] MEDS ORDERED: furosemide 10 MG/1 ML 10ml inj IV SCH (14:00)
[2024-05-14] MEDS ORDERED: midodrine 5mg tablet PO PRN (14:00)
[2024-05-14] MEDS: DOBUTamine-DoBUTrex 500mg/D5W 250 ML IV SCH (14:14)
[2024-05-14 15:06] LABS: INR 1.2 INR; PROTHROMBIN TIME 12.6 SECONDS (9.0-12.0)
[2024-05-14] MEDS: diatr meglu/diatrizoate 30ml oral sol.-(3 dose) bottle PO SCH (15:20)
[2024-05-14] MEDS: atorvastatin 10mg tablet PO SCH (20:56)
[2024-05-15] VITALS (27 sets, daily range): BP systolic 96–154; BP diastolic 41–93; PULSE 75–130; RESP 18–41; TEMP 97.5–97.9; O2SAT 90–100
[2024-05-15 07:43] LABS: ALANINE AMINOTRANSFERASE 155 U/L (12-78); ALBUMIN 2.7 G/DL (3.4-5.0); ALBUMIN/GLOBULIN RATIO 0.9 (1.1-1.5); ALKALINE PHOSPHATASE 220 IU/L (46-116); ANION GAP 12 (8-16); ASPARTATE AMINO TRANSFERASE 110 U/L (10-37); BILIRUBIN,TOTAL 2.7 MG/DL (0.1-1.0); BLOOD UREA NITROGEN 34 MG/DL (7-18); BUN/CREATININE RATIO 21.4 (10.0-20.0); CALCIUM 8.1 MG/DL (8.5-10.1); CHLORIDE 102 MMOL/L (99-107); CREATININE 1.59 MG/DL (0.60-1.10); GLUCOSE 78 MG/DL (70-104); MAGNESIUM 2.1 MG/DL (1.5-2.4); SODIUM 142 MMOL/L (135-145); TOTAL CARBON DIOXIDE 28.5 MMOL/L (24-32); TOTAL PROTEIN 5.8 G/DL (6.4-8.2); eCRCL 54 ML/MIN; eGFR 44 ML/MIN
[2024-05-15 07:56] LABS: POTASSIUM 3.8 MMOL/L (3.5-5.1)
[2024-05-15] MEDS ORDERED: furosemide 40mg/4ml inj IV SCH (08:00)
[2024-05-15] MEDS ORDERED: rocuronium 10mg/ml inj IV ONE (08:00)
[2024-05-15 08:38] LABS: BASOPHILS # (AUTO) 0.1 X10'3 (0-0.2); BASOPHILS % (AUTO) 0.9 % (0-1); EOSINOPHILS % (AUTO) 0.1 % (0-6); HEMATOCRIT 43.1 % (42.0-52.0); HEMOGLOBIN 14.2 g/dl (14.0-17.9); LYMPHOCYTES # (AUTO) 0.4 X10'3 (1.1-4.8); LYMPHOCYTES % (AUTO) 5.2 % (21-51); MEAN CORPUSCULAR HEMOGLOBIN 29.5 PG (27.0-31.0); MEAN CORPUSCULAR HGB CONC 32.9 g/dL (33.0-36.5); MEAN CORPUSCULAR VOLUME 89.6 FL (78-98); MEAN PLATELET VOLUME 8.8 FL (7.4-10.4); MONOCYTES # (AUTO) 0.4 X10'3 (0-0.9); MONOCYTES % (AUTO) 5.3 % (2-12); NEUTROPHILS # (AUTO) 6.6 X10'3 (1.8-7.7); NEUTROPHILS % (AUTO) 88.5 % (42-75); PLATELET COUNT 186 X10'3 (140-440); RED BLOOD COUNT 4.81 X10'6 (4.70-6.10); RED CELL DISTRIBUTION WIDTH 20.4 % (11.5-14.5); WHITE BLOOD COUNT 7.4 X10'3 (4.5-11.0)
[2024-05-15] MEDS: CefTRIAXone 2gm/D5W 50ml BAG 50 ML IV SCH (11:51)
[2024-05-15] MEDS: PERFLUTREN PROTEIN-A MICROSPHR (Optison) 0.22 MG/ML 3ML VIAL IV ONE (12:25)
[2024-05-15 15:02] LABS: ABG BASE EXCESS 2.4 mmol/L (-2.0-3.0); ABG HCO3 29.6 mmol/L (21.0-28.0); ABG OXYGEN SATURATION 96.4 % (94.0-98.0); ABG PH (T) 7.347 (7.350-7.450); ABG PO2 (T) 99.3 mmHg (83.0-108.0); FCOHb 0.9 % (0.5-1.5); FHHb 3.6 % (0.0-5.0); FLOW 15 L/min; FMetHb 0.1 % (0.0-1.5); FO2Hb 95.4 % (94.0-98.0); MODE NRM; PATIENT TEMPERATURE 36.7; TOTAL HEMOGLOBIN 15.5 G/dl (13.5-17.5)
[2024-05-15] MEDS: etomidate 2mg/ml inj. IV ONE (16:00)
[2024-05-15 16:16] LABS: URINE AMPHETAMINE SCREEN NEGATIVE (Neg); URINE BARBITUATE SCREEN NEGATIVE (Neg); URINE BENZODIAZEPINES SCREEN NEGATIVE (Neg); URINE CANNABINOID SCREEN NEGATIVE (Neg); URINE COCAINE SCREEN NEGATIVE (Neg); URINE METHADONE SCREEN NEGATIVE (Neg); URINE OPIATE SCREEN NEGATIVE (Neg); URINE PHENCYCLIDINE SCREEN NEGATIVE (Neg)
[2024-05-15] MEDS ORDERED: fentaNYL/PF 50MCG/1 ML 2ML syringe IV PRN (16:40)
[2024-05-15] MEDS ORDERED: UNABLE TO OBTAIN (17:11)
[2024-05-15] MEDS: LidoCAINE 2% Topical Jelly 11mL syringe (UROJET) TOP ONE (17:12)
[2024-05-15 17:37] LABS: OXYGEN SATURATION (MIXED VEN) 81.8 % (60-80); PO2 MIXED VENOUS (TEMP COR) 58.2 mmHg (35-46)
[2024-05-15 17:45] LABS: ABG BASE EXCESS 1.8 mmol/L (-2.0-3.0); ABG HCO3 27.1 mmol/L (21.0-28.0); ABG OXYGEN SATURATION 96.6 % (94.0-98.0); ABG PCO2 (T) 49.7 mmHg (35.0-48.0); ABG PH (T) 7.365 (7.350-7.450); ABG PO2 (T) 101.8 mmHg (83.0-108.0); FCOHb 0.8 % (0.5-1.5); FHHb 3.4 % (0.0-5.0); FMetHb 0.1 % (0.0-1.5); FO2Hb 95.7 % (94.0-98.0); MODE VENT - APRV; PATIENT TEMPERATURE 39.2; PEEP 12 cm H2O; RESPIRATORY RATE 20 b/min; TIDAL VOLUME 350 mL; TOTAL HEMOGLOBIN 14.2 G/dl (13.5-17.5)
[2024-05-15] MEDS: furosemide 40mg/4ml inj IV STA (17:46)
[2024-05-15] MEDS: FENTANYL-0.9 % NACL/PF 100 ML IV SCH (17:47)
[2024-05-15] MEDS: DOBUTamine-DoBUTrex 500mg/D5W 250 ML IV SCH (17:48)
[2024-05-15] MEDS: propofol 1000mg/100ml bottle 100 ML IV SCH (17:49)
[2024-05-15 19:05] LABS: ALBUMIN 2.6 G/DL (3.4-5.0); ANION GAP 8 (8-16); BLOOD UREA NITROGEN 34 MG/DL (7-18); BUN/CREATININE RATIO 20.5 (10.0-20.0); CALCIUM 7.9 MG/DL (8.5-10.1); CHLORIDE 102 MMOL/L (99-107); CREATININE 1.66 MG/DL (0.60-1.10); POTASSIUM 3.7 MMOL/L (3.5-5.1); SODIUM 140 MMOL/L (135-145); TOTAL CARBON DIOXIDE 30.4 MMOL/L (24-32); eCRCL 51 ML/MIN; eGFR 42 ML/MIN
[2024-05-15] MEDS: furosemide 40mg/4ml inj IV SCH (19:09)
[2024-05-15] MEDS: acetaminophen 325mg tablet PO PRN (19:10)
[2024-05-15] MEDS: normal saline 1000ml 1,000 ML IV SCH (19:16)
[2024-05-15 19:17] LABS: GLUCOSE 114 MG/DL (70-104)
[2024-05-15] MEDS ORDERED: magnesium sulf-water 2g/50mL 50 ML IV PRN (23:05)
[2024-05-15] MEDS ORDERED: magnesium sulf-water 4G/100mL 100 ML IV PRN (23:05)
[2024-05-16] VITALS (34 sets, daily range): BP systolic 63–116; BP diastolic 43–72; PULSE 96–111; RESP 18–21; O2SAT 90–96
[2024-05-16 02:21] LABS: BASOPHILS % (AUTO) 0.5 % (0-1); EOSINOPHILS % (AUTO) 0 % (0-6); HEMATOCRIT 40.2 % (42.0-52.0); HEMOGLOBIN 13.3 g/dl (14.0-17.9); LYMPHOCYTES # (AUTO) 0.4 X10'3 (1.1-4.8); LYMPHOCYTES % (AUTO) 4.1 % (21-51); MEAN CORPUSCULAR HEMOGLOBIN 29.9 PG (27.0-31.0); MEAN CORPUSCULAR HGB CONC 33.2 g/dL (33.0-36.5); MEAN CORPUSCULAR VOLUME 90.1 FL (78-98); MEAN PLATELET VOLUME 8.7 FL (7.4-10.4); MONOCYTES # (AUTO) 0.6 X10'3 (0-0.9); MONOCYTES % (AUTO) 7.2 % (2-12); NEUTROPHILS % (AUTO) 88.2 % (42-75); PLATELET COUNT 160 X10'3 (140-440); RED BLOOD COUNT 4.46 X10'6 (4.70-6.10); RED CELL DISTRIBUTION WIDTH 21.6 % (11.5-14.5); WHITE BLOOD COUNT 9.1 X10'3 (4.5-11.0)
[2024-05-16 02:33] LABS: ALANINE AMINOTRANSFERASE 119 U/L (12-78); ALBUMIN 2.6 G/DL (3.4-5.0); ALBUMIN/GLOBULIN RATIO 0.9 (1.1-1.5); ALKALINE PHOSPHATASE 201 IU/L (46-116); ANION GAP 5 (8-16); ASPARTATE AMINO TRANSFERASE 77 U/L (10-37); BILIRUBIN,TOTAL 1.5 MG/DL (0.1-1.0); BLOOD UREA NITROGEN 31 MG/DL (7-18); BUN/CREATININE RATIO 18.8 (10.0-20.0); CHLORIDE 103 MMOL/L (99-107); CREATININE 1.65 MG/DL (0.60-1.10); GLUCOSE 84 MG/DL (70-104); MAGNESIUM 1.6 MG/DL (1.5-2.4); PHOSPHORUS 3.5 MG/DL (2.3-4.5); POTASSIUM 3.5 MMOL/L (3.5-5.1); SODIUM 142 MMOL/L (135-145); TOTAL CARBON DIOXIDE 33.8 MMOL/L (24-32); TOTAL PROTEIN 5.4 G/DL (6.4-8.2); TRIGLYCERIDES 57 MG/DL (20-135); eCRCL 52 ML/MIN; eGFR 42 ML/MIN
[2024-05-16 04:36] LABS: ABG BASE EXCESS 3.9 mmol/L (-2.0-3.0); ABG HCO3 31.6 mmol/L (21.0-28.0); ABG OXYGEN SATURATION 90.7 % (94.0-98.0); ABG PH (T) 7.322 (7.350-7.450); ABG PO2 (T) 66.8 mmHg (83.0-108.0); FCOHb 0.5 % (0.5-1.5); FHHb 9.2 % (0.0-5.0); FMetHb 0.3 % (0.0-1.5); MODE CMV PRVC IT 0.9; PATIENT TEMPERATURE 37.9; PEEP 12 cm H2O; RESPIRATORY RATE 20 b/min; TIDAL VOLUME 350 mL; TOTAL HEMOGLOBIN 14.7 G/dl (13.5-17.5)
[2024-05-16] MEDS ORDERED: magnesium hydroxide 30ml (MOM) UD suspension OGT PRN (11:24)
[2024-05-16] MEDS ORDERED: HYDROcodone/acetaminophen 7.5MG/325MG per 15ml UD CUP OGT PRN (11:24)
[2024-05-16] MEDS ORDERED: mag hydrox/Alum hydrox/simeth 30ml oral suspension OGT PRN (11:24)
[2024-05-16] MEDS: pantoprazole 40 MG vial IV SCH (12:23)
[2024-05-16 12:45] LABS: ALBUMIN 2.3 G/DL (3.4-5.0); CALCIUM 7.9 MG/DL (8.5-10.1); TOTAL CARBON DIOXIDE 29.7 MMOL/L (24-32)
[2024-05-16 12:56] LABS: ANION GAP 9 (8-16); BLOOD UREA NITROGEN 29 MG/DL (7-18); CHLORIDE 102 MMOL/L (99-107); CREATININE 1.53 MG/DL (0.60-1.10); GLUCOSE 71 MG/DL (70-104); POTASSIUM 4.2 MMOL/L (3.5-5.1); SODIUM 141 MMOL/L (135-145); eCRCL 56 ML/MIN; eGFR 46 ML/MIN
[2024-05-16] MEDS: PHENYLephrine 10mg/ml inj. 50 MG in normal saline 250ml IV soln 245 ML IV PRN (13:24)
[2024-05-16] MEDS ORDERED: dextrose 50%-water 50ml dispensing syringe IV PRN (14:20)
[2024-05-16] MEDS ORDERED: glucagon, human recombinant 1mg kit SUBCUT PRN (14:20)
[2024-05-16] MEDS: dextrose 50%-water 50ml dispensing syringe IV PRN (14:25)
[2024-05-16] MEDS: COMMUNICATION ORDER 1 EA MISC MC ONE ×2 (15:57→17:33)
[2024-05-16 16:46] LABS: ALBUMIN 2.2 G/DL (3.4-5.0); ANION GAP 6 (8-16); BLOOD UREA NITROGEN 28 MG/DL (7-18); BUN/CREATININE RATIO 17.4 (10.0-20.0); CALCIUM 7.7 MG/DL (8.5-10.1); CHLORIDE 103 MMOL/L (99-107); CREATININE 1.61 MG/DL (0.60-1.10); GLUCOSE 58 MG/DL (70-104); POTASSIUM 3.3 MMOL/L (3.5-5.1); SODIUM 142 MMOL/L (135-145); TOTAL CARBON DIOXIDE 33.3 MMOL/L (24-32); eCRCL 53 ML/MIN; eGFR 44 ML/MIN
[2024-05-16] MEDS: potassium Cl 40MEQ/270ML bag 270 ML IV PRN (17:28)
[2024-05-16] MEDS: dextrose 5%-1/2 normal saline 1,000 ML IV SCH (19:49)
[2024-05-16] MEDS: docusate sodium 100mg/10ml UD cup OGT SCH (19:49)
[2024-05-16] MEDS: mineral oil/petrolatum ophthal oint EACHEYE SCH (19:50)
[2024-05-16 22:28] LABS: ALBUMIN 2.3 G/DL (3.4-5.0); ANION GAP 6 (8-16); BLOOD UREA NITROGEN 28 MG/DL (7-18); BUN/CREATININE RATIO 16.5 (10.0-20.0); CALCIUM 7.7 MG/DL (8.5-10.1); CHLORIDE 103 MMOL/L (99-107); GLUCOSE 95 MG/DL (70-104); POTASSIUM 4.1 MMOL/L (3.5-5.1); SODIUM 140 MMOL/L (135-145); TOTAL CARBON DIOXIDE 30.7 MMOL/L (24-32); eCRCL 50 ML/MIN; eGFR 41 ML/MIN
[2024-05-17] VITALS (36 sets, daily range): BP systolic 75–123; BP diastolic 50–72; PULSE 95–114; RESP 17–30; O2SAT 83–100
[2024-05-17 02:43] LABS: ABG BASE EXCESS -0.2 mmol/L (-2.0-3.0); ABG HCO3 28.9 mmol/L (21.0-28.0); ABG OXYGEN SATURATION 91.3 % (94.0-98.0); ABG PCO2 (T) 69.1 mmHg (35.0-48.0); ABG PH (T) 7.242 (7.350-7.450); ABG PO2 (T) 69.6 mmHg (83.0-108.0); FCOHb 0.4 % (0.5-1.5); FHHb 8.6 % (0.0-5.0); FMetHb 0.2 % (0.0-1.5); FO2Hb 90.8 % (94.0-98.0); MODE VENT - AC; PATIENT TEMPERATURE 37.4; PEEP 12 cm H2O; RESPIRATORY RATE 20 b/min; TIDAL VOLUME 350 mL; TOTAL HEMOGLOBIN 14.4 G/dl (13.5-17.5)
[2024-05-17 04:08] LABS: BASOPHILS # (AUTO) 0.1 X10'3 (0-0.2); EOSINOPHILS % (AUTO) 0.1 % (0-6); HEMATOCRIT 42.5 % (42.0-52.0); HEMOGLOBIN 13.7 g/dl (14.0-17.9); LYMPHOCYTES # (AUTO) 0.1 X10'3 (1.1-4.8); LYMPHOCYTES % (AUTO) 1.6 % (21-51); MEAN CORPUSCULAR HEMOGLOBIN 29.7 PG (27.0-31.0); MEAN CORPUSCULAR HGB CONC 32.2 g/dL (33.0-36.5); MEAN CORPUSCULAR VOLUME 92.1 FL (78-98); MEAN PLATELET VOLUME 8.6 FL (7.4-10.4); MONOCYTES # (AUTO) 0.3 X10'3 (0-0.9); MONOCYTES % (AUTO) 3.5 % (2-12); NEUTROPHILS # (AUTO) 8.6 X10'3 (1.8-7.7); NEUTROPHILS % (AUTO) 93.8 % (42-75); PLATELET COUNT 140 X10'3 (140-440); RED BLOOD COUNT 4.61 X10'6 (4.70-6.10); RED CELL DISTRIBUTION WIDTH 21.7 % (11.5-14.5); WHITE BLOOD COUNT 9.2 X10'3 (4.5-11.0)
[2024-05-17 04:45] LABS: ALANINE AMINOTRANSFERASE 105 U/L (12-78); ALBUMIN 2.3 G/DL (3.4-5.0); ALBUMIN/GLOBULIN RATIO 0.7 (1.1-1.5); ALKALINE PHOSPHATASE 191 IU/L (46-116); ANION GAP 7 (8-16); ASPARTATE AMINO TRANSFERASE 86 U/L (10-37); BILIRUBIN,TOTAL 2.1 MG/DL (0.1-1.0); BLOOD UREA NITROGEN 30 MG/DL (7-18); BUN/CREATININE RATIO 16.9 (10.0-20.0); CALCIUM 8.1 MG/DL (8.5-10.1); CHLORIDE 103 MMOL/L (99-107); CREATININE 1.77 MG/DL (0.60-1.10); GLUCOSE 95 MG/DL (70-104); MAGNESIUM 1.7 MG/DL (1.5-2.4); PHOSPHORUS 5.3 MG/DL (2.3-4.5); SODIUM 140 MMOL/L (135-145); TOTAL CARBON DIOXIDE 30.5 MMOL/L (24-32); TOTAL PROTEIN 5.6 G/DL (6.4-8.2); eCRCL 48 ML/MIN; eGFR 39 ML/MIN
[2024-05-17 04:55] LABS: POTASSIUM 4.1 MMOL/L (3.5-5.1)
[2024-05-17] MEDS: clopidogrel 75mg tablet OGT SCH (07:09)
[2024-05-17] MEDS: aspirin 81mg tab.chew OGT SCH (07:09)
[2024-05-17] MEDS: NORepinephrine 8mg/ 250ml NS 250 ML IV ONE ×2 (08:53→19:33)
[2024-05-17] MEDS: PHENYLephrine 10mg/ml inj. 100 MG in normal saline 250ml IV soln 240 ML IV PRN (12:07)
[2024-05-17] MEDS: DEXTROSE 10 % AND 0.45 % NACL 1,000 ML IV SCH (15:04)
[2024-05-17] MEDS: acetaminophen 325mg tablet OGT PRN (16:51)
[2024-05-17] MEDS: NORepinephrine 8mg/ 250ml NS 250 ML IV SCH (18:58)
[2024-05-18] VITALS (19 sets, daily range): BP systolic 92–115; BP diastolic 49–65; PULSE 86–112; RESP 18–24; O2SAT 89–98
[2024-05-18 02:21] LABS: BASOPHILS # (AUTO) 0.1 X10'3 (0-0.2); BASOPHILS % (AUTO) 1.3 % (0-1); EOSINOPHILS % (AUTO) 0 % (0-6); HEMATOCRIT 41.2 % (42.0-52.0); HEMOGLOBIN 13.3 g/dl (14.0-17.9); LYMPHOCYTES # (AUTO) 0.3 X10'3 (1.1-4.8); LYMPHOCYTES % (AUTO) 4.2 % (21-51); MEAN CORPUSCULAR HEMOGLOBIN 29.4 PG (27.0-31.0); MEAN CORPUSCULAR HGB CONC 32.3 g/dL (33.0-36.5); MEAN CORPUSCULAR VOLUME 90.9 FL (78-98); MEAN PLATELET VOLUME 8.8 FL (7.4-10.4); MONOCYTES # (AUTO) 0.3 X10'3 (0-0.9); MONOCYTES % (AUTO) 3.8 % (2-12); NEUTROPHILS % (AUTO) 90.7 % (42-75); PLATELET COUNT 109 X10'3 (140-440); RED BLOOD COUNT 4.53 X10'6 (4.70-6.10); RED CELL DISTRIBUTION WIDTH 22.1 % (11.5-14.5); WHITE BLOOD COUNT 6.6 X10'3 (4.5-11.0)
[2024-05-18 02:28] LABS: ALANINE AMINOTRANSFERASE 87 U/L (12-78); ALBUMIN/GLOBULIN RATIO 0.6 (1.1-1.5); ANION GAP 8 (8-16); ASPARTATE AMINO TRANSFERASE 107 U/L (10-37); BILIRUBIN,TOTAL 2.2 MG/DL (0.1-1.0); BLOOD UREA NITROGEN 32 MG/DL (7-18); BUN/CREATININE RATIO 15.8 (10.0-20.0); CALCIUM 7.5 MG/DL (8.5-10.1); CHLORIDE 102 MMOL/L (99-107); CREATININE 2.02 MG/DL (0.60-1.10); GLUCOSE 101 MG/DL (70-104); MAGNESIUM 2.5 MG/DL (1.5-2.4); PHOSPHORUS 5.3 MG/DL (2.3-4.5); POTASSIUM 3.9 MMOL/L (3.5-5.1); PREALBUMIN 9.3 MG/DL (19-36); SODIUM 140 MMOL/L (135-145); TOTAL CARBON DIOXIDE 30.2 MMOL/L (24-32); TOTAL PROTEIN 5.1 G/DL (6.4-8.2); TRIGLYCERIDES 46 MG/DL (20-135); eCRCL 42 ML/MIN; eGFR 34 ML/MIN
[2024-05-18 02:34] LABS: ALKALINE PHOSPHATASE 196 IU/L (46-116)
== END 2024-05-18 17:55 | DRG 720 ==
LOC: ER 10:47 → ED HOLD 16:26 → PCU 3S 22:02 → CICU 2S 05-15 16:07
PROVIDERS: ADMIT Internal Medicine; ATTEND Nurse Practitioner Family
PROC: 03HY32Z Insertion of Monitoring Device into Upper Artery, Percutaneous Approach (ICD-10-PCS; principal; 2024-05-15)
PROC: 5A1945Z Respiratory Ventilation, 24-96 Consecutive Hours (ICD-10-PCS; 2024-05-15)
PROC: 5A09357 Assistance with Respiratory Ventilation, Less than 24 Consecutive Hours, Continuous Positive Airway Pressure (ICD-10-PCS; 2024-05-15)
PROC: 0BH17EZ Insertion of Endotracheal Airway into Trachea, Via Natural or Artificial Opening (ICD-10-PCS; 2024-05-15)
PROC: 02HV33Z Insertion of Infusion Device into Superior Vena Cava, Percutaneous Approach (ICD-10-PCS; 2024-05-15)
PROC: B548ZZA Ultrasonography of Superior Vena Cava, Guidance (ICD-10-PCS; 2024-05-15)
DX: A41.9 Sepsis, unspecified organism (principal); J96.01 Acute respiratory failure with hypoxia; I50.23 Acute on chronic systolic (congestive) heart failure; E87.20 Acidosis, unspecified; J18.9 Pneumonia, unspecified organism; R57.0 Cardiogenic shock; R65.21 Severe sepsis with septic shock; I42.0 Dilated cardiomyopathy; I13.0 Hypertensive heart and chronic kidney disease with heart failure and stage 1 through stage 4 chronic kidney disease, or unspecified chronic kidney disease; I42.7 Cardiomyopathy due to drug and external agent; K76.6 Portal hypertension; Z66 Do not resuscitate; N17.9 Acute kidney failure, unspecified; K74.60 Unspecified cirrhosis of liver; I07.1 Rheumatic tricuspid insufficiency; J44.9 Chronic obstructive pulmonary disease, unspecified; K76.0 Fatty (change of) liver, not elsewhere classified; F15.90 Other stimulant use, unspecified, uncomplicated; E16.2 Hypoglycemia, unspecified; N18.9 Chronic kidney disease, unspecified; R74.01 Elevation of levels of liver transaminase levels; Z51.5 Encounter for palliative care; Z79.82 Long term (current) use of aspirin; Z79.899 Other long term (current) drug therapy; Z86.73 Personal history of transient ischemic attack (TIA), and cerebral infarction without residual deficits
CPT/HCPCS: 36415; 36600; 71045; 74176; 76700; 80048; 80053; 80061; 80305; 82800; 82803; 82810; 82948; 83605; 83690; 83735; 83880; 84100; 84134; 84145; 84478; 84484; 85008; 85018; 85025; 85610; 87040; 87070; 87081; 87811; 93005; 93308; 93975; 94002; 94003; 94660; 94760; 97116; 97161; 97530; A4615; A4620; A6213; A6258; A6449; A9900; C1751; C1758; G0378; J0696; J1250; J1644; J1940; J2371; J2470; J2704; J3010; J3480; J3490; J7030; J7040; J7050; Q9963